=== PATIENT | male | born 1975 | race Caucasian/White ===

== ENCOUNTER 2017-06-21 19:45 | Inpatient (IN) ==
--- NOTE | 2017-06-21 20:16 | Emergency Department Note ---
Disposition Clinical Impression: Suicidal ideation, Depression Disposition: Admitted As Inpatient Condition: Good Psych HPI - General Chief Complaint: ED Psychiatric Symptoms Stated Complaint: SI Time Seen by Provider: 06/21/17 19:54 Source: patient, EMS Mode of arrival: EMS Limitations: no limitations Nursing Notes Reviewed: Yes Vital Signs Reviewed: Yes - History of Present Illness HPI Narrative: This is a 41 year-old male with history of depression and schizophrenia. He saw his psychiatrist Dr. Gonzales earlier today and was sent to the ED for increased depression and suicidal ideation. Patient says that he's hearing "fans," which he says is a flashback from his time in [facility]. He admits to SI. Denies any acute physical symptoms. Says he stopped taking his psychiatric medications months ago because he did not like the side effects. Pt complaint: suicidal ideation, feels depressed, anxiety, medical clearance request If medical clearance, reason: psychiatric condition Onset (ago): unknown (chronic, worse for weeks) Duration: getting worse Context: recent drug abuse, not taking psychiatric medications Associated Psychiatric Symptoms: depression, suicidal ideation, auditory hallucinations (?hearing fans) Associated symptoms: Reports: denies other symptoms Self harm or harm to others: admits thoughts of self harm - Related Data Home Medications Medication Instructions Recorded Confirmed No Known Home Drugs 06/22/17 06/22/17 Allergies Allergy/AdvReac Type Severity Reaction Status Date / Time haloperidol [From Haldol] Allergy See Verified 11/03/15 19:16 Comments All systems ED: reviewed and negative except as stated. Constitutional: Denies: fever Cardiovascular: Denies: chest pain Respiratory: Denies: dyspnea Gastrointestinal: Denies: abdominal pain Past Medical History - Past Medical History Medical history: Reports: no medical history, asthma, hepatitis Psychiatric history: Reports: depression, schizophrenia - Social History Smoking Status: Current every day smoker Smokeless Tobacco Status: Yes Alcohol use: Reports: none Drug use: Reports: marijuana, methamphetamine, other Physical Exam - General Limitations: no limitations General appearance: alert, in no apparent distress - Head Head exam: atraumatic, normocephalic - Eye Eye exam: Present: normal appearance - ENT ENT exam: normal exam - Neck Neck exam: Present: normal inspection - Respiratory Respiratory exam: Present: normal lung sounds bilaterally - Cardiovascular Cardiovascular exam: Present: regular rate, normal rhythm, normal heart sounds - Abdominal Exam Abdominal exam: Present: soft, Non-Tender. Absent: distention - Extremities Exam Extremities exam: Present: normal inspection - Neurological Exam Neurological exam: Present: alert, oriented X3. Absent: motor sensory deficit - Psychiatric Psychiatric exam: Present: anxious, suicidal ideation - Skin Skin exam: Present: warm, dry, intact Course Vital Signs Temperature 98.1 F 06/21/17 19:48 Pulse Rate 98 06/21/17 19:48 Respiratory Rate 18 06/21/17 19:48 Blood Pressure 122/47 06/21/17 19:48 O2 Sat by Pulse Oximetry 110 06/21/17 19:48 Temperature 98.5 F 06/22/17 21:00 Pulse Rate 51 06/22/17 21:00 Respiratory Rate 18 06/22/17 21:00 Blood Pressure 123/81 06/22/17 21:00 O2 Sat by Pulse Oximetry 98 06/22/17 11:25 Oxygen Delivery Oxygen Delivery Room Air Psych - Lab Data Result diagrams: 06/21/17 20:17 06/21/17 20:17 Lab Results 06/21/17 06/21/17 06/21/17 Range/Units 20:17 20:17 20:45 WBC 10.3 (4.3-11.1) K/mcL RBC 5.28 (4.19-5.50) M/mcL Hgb 15.6 (12.9-16.9) g/dL Hct 47.5 (37.5-50.1) % MCV 90.0 (83.0-100.0) fL MCH 29.5 (28.0-33.3) pg MCHC 32.8 (31.6-35.5) g/dL RDW 13.0 (11.5-14.5) % Plt Count 313 (140-400) K/mcL MPV 11.0 (9.4-12.4) fL Immature Gran % 0.3 (0-4) % Seg Neutrophils % 54.2 % Lymphocytes % 32.5 % Monocytes % 11.2 % Eosinophils % 1.2 % Basophils % 0.6 % Neutrophils # 5.6 (1.6-8.9) K/mcL Lymphocytes # 3.4 (0.6-4.6) K/mcL Monocytes # 1.2 (0.0-1.3) K/mcL Eosinophils # 0.1 (0.0-0.6) K/mcL Basophils # 0.1 (0.0-0.2) K/mcL Sodium 135 L (136-145) mEq/L Potassium 3.4 L (3.5-5.1) mEq/L Chloride 100 (98-107) mEq/L Carbon Dioxide 30 H (23-29) mEq/L BUN 7 (6-20) mg/dL Creatinine 0.82 (0.70-1.30) mg/dL Est GFR ( Amer) > 60 (> 60) Est GFR (Non-Af Amer) > 60 (> 60) BUN/Creatinine Ratio 9 (6-26) Glucose 94 (70-105) mg/dL Calculated Osmolality 278 L (280-300) Calcium 9.4 (8.6-10.3) mg/dL Urine Color Yellow (Yellow) Urine Clarity Clear (Clear) Urine pH 6.0 (5.0-8.0) pH Units Ur Specific [place] 1.017 (1.010-1.025) Urine Protein Negative (Neg-Trace) mg/dL Urine Glucose (UA) Normal (Normal) mg/dL Urine Ketones Negative (Negative) mg/dL Urine Blood Negative (Negative) Urine Nitrite Negative (Negative) Urine Bilirubin Negative (Negative) Urine Urobilinogen Normal (Normal) mg/dL Ur Leukocyte Esterase Negative (Negative) Salicylates < 5.0 L (15.0-30.0) mg/dL Urine Opiates Screen (Bjnatj=502) ng/mL Acetaminophen < 1.0 L (10-30) mcg/mL Ur Barbiturates Screen (Gdbbko=343) ng/mL Ur Phencyclidine Scrn (Cutoff=25) ng/mL Ur Amphetamines Screen (Lfiefm=0689) ng/mL U Benzodiazepines Scrn (Ozjlaa=126) ng/mL Urine Cocaine Screen (Cutoff= 300) ng/mL U Marijuana (THC) Screen (Cutoff = 50) ng/mL Ethyl Alcohol < 10 (0-10) mg/dL 06/21/17 Range/Units 20:45 WBC (4.3-11.1) K/mcL RBC (4.19-5.50) M/mcL Hgb (12.9-16.9) g/dL Hct (37.5-50.1) % MCV (83.0-100.0) fL MCH (28.0-33.3) pg MCHC (31.6-35.5) g/dL RDW (11.5-14.5) % Plt Count (140-400) K/mcL MPV (9.4-12.4) fL Immature Gran % (0-4) % Seg Neutrophils % % Lymphocytes % % Monocytes % % Eosinophils % % Basophils % % Neutrophils # (1.6-8.9) K/mcL Lymphocytes # (0.6-4.6) K/mcL Monocytes # (0.0-1.3) K/mcL Eosinophils # (0.0-0.6) K/mcL Basophils # (0.0-0.2) K/mcL Sodium (136-145) mEq/L Potassium (3.5-5.1) mEq/L Chloride (98-107) mEq/L Carbon Dioxide (23-29) mEq/L BUN (6-20) mg/dL Creatinine (0.70-1.30) mg/dL Est GFR ( Amer) (> 60) Est GFR (Non-Af Amer) (> 60) BUN/Creatinine Ratio (6-26) Glucose (70-105) mg/dL Calculated Osmolality (280-300) Calcium (8.6-10.3) mg/dL Urine Color (Yellow) Urine Clarity (Clear) Urine pH (5.0-8.0) pH Units Ur Specific [place] (1.010-1.025) Urine Protein (Neg-Trace) mg/dL Urine Glucose (UA) (Normal) mg/dL Urine Ketones (Negative) mg/dL Urine Blood (Negative) Urine Nitrite (Negative) Urine Bilirubin (Negative) Urine Urobilinogen (Normal) mg/dL Ur Leukocyte Esterase (Negative) Salicylates (15.0-30.0) mg/dL Urine Opiates Screen Negative (Fzusap=212) ng/mL Acetaminophen (10-30) mcg/mL Ur Barbiturates Screen Negative (Emtwrv=200) ng/mL Ur Phencyclidine Scrn Negative (Cutoff=25) ng/mL Ur Amphetamines Screen Positive H (Jryivq=6936) ng/mL U Benzodiazepines Scrn Positive H (Eoqtsb=728) ng/mL Urine Cocaine Screen Negative (Cutoff= 300) ng/mL U Marijuana (THC) Screen Positive H (Cutoff = 50) ng/mL Ethyl Alcohol (0-10) mg/dL Psychiatric Medical Clearance - Medical Clearance Checklist Medical History: Suicidal ideation (Acute) Depression (Acute) Acute exacerbation of chronic paranoid schizophrenia (Acute) Patient's noncompliance with other medical treatment and regimen (Acute) Other stimulant dependence with stimulant-induced anxiety disorder (Acute) Sedative, hypnotic or anxiolytic abuse, uncomplicated (Acute) Cannabis abuse, continuous (Acute) Acute bronchitis (Inactive) Altered awareness, transient (Inactive) Bronchitis (Inactive) Medical clearance for psychiatric admission (Inactive) No Social History Section defined Current Vitals: Last Vital Signs Temp 98.5 F 06/22/17 21:00 Pulse 51 06/22/17 21:00 Resp 18 06/22/17 21:00 BP 123/81 06/22/17 21:00 Pulse Ox 98 06/22/17 11:25 Abnormal Labs: Abnormal lab results Sodium 135 mEq/L (136-145) L 06/21/17 20:17 Potassium 3.4 mEq/L (3.5-5.1) L 06/21/17 20:17 Carbon Dioxide 30 mEq/L (23-29) H 06/21/17 20:17 Calculated Osmolality 278 (280-300) L 06/21/17 20:17 Salicylates < 5.0 mg/dL (15.0-30.0) L 06/21/17 20:17 Acetaminophen < 1.0 mcg/mL (10-30) L 06/21/17 20:17 Ur Amphetamines Screen Positive ng/mL (Tzqqtd=4748) H 06/21/17 20:45 U Benzodiazepines Scrn Positive ng/mL (Qifkym=744) H 06/21/17 20:45 U Marijuana (THC) Screen Positive ng/mL (Cutoff = 50) H 06/21/17 20:45 Statement of Medical Clearance: I have evaluated the patient, reviewed diagnostic information, and certify that the patient's medical condition is sufficiently stable that transfer to the psychiatric unit does not pose a significant risk of deterioration.
[2017-06-21 20:29] LABS: Basophils # 0.1 K/mcL (0.0-0.2); Basophils % 0.6 %; Eosinophils # 0.1 K/mcL (0.0-0.6); Eosinophils % 1.2 %; Hematocrit 47.5 % (37.5-50.1); Hemoglobin 15.6 g/dL (12.9-16.9); Immature Granulocytes % 0.3 % (0-4); Lymphocytes # 3.4 K/mcL (0.6-4.6); Lymphocytes % 32.5 %; Mean Corpuscular HGB Conc 32.8 g/dL (31.6-35.5); Mean Corpuscular Hemoglobin 29.5 pg (28.0-33.3); Monocytes # 1.2 K/mcL (0.0-1.3); Monocytes % 11.2 %; Neutrophils # 5.6 K/mcL (1.6-8.9); Platelet Count 313 K/mcL (140-400); Red Blood Count 5.28 M/mcL (4.19-5.50); Segmented Neutrophils % 54.2 %
[2017-06-21 20:45] LABS: Acetaminophen < 1.0 mcg/mL (10-30); Ethanol < 10 mg/dL (0-10); Salicylate < 5.0 mg/dL (15.0-30.0)
[2017-06-21 20:46] LABS: BUN/Creatinine Ratio 9 (6-26); Blood Urea Nitrogen 7 mg/dL (6-20); Calcium 9.4 mg/dL (8.6-10.3); Carbon Dioxide 30 mEq/L (23-29); Chloride 100 mEq/L (98-107); Glucose 94 mg/dL (70-105); Osmolality,Calculated 278 (280-300); Potassium 3.4 mEq/L (3.5-5.1); Sodium 135 mEq/L (136-145); eGFR For African Americans > 60 (> 60); eGFR For Non-African Americans > 60 (> 60)
[2017-06-21 20:57] LABS: Bilirubin,Urine Negative (Negative); Blood,Urine Negative (Negative); Clarity,Urine Clear (Clear); Color,Urine Yellow (Yellow); Glucose,Urine (UA) Normal (Normal); Ketones,Urine Negative (Negative); Leukocyte Esterase,Urine Negative (Negative); Nitrite,Urine Negative (Negative); Protein,Urine Negative (Neg-Trace); Specific Gravity,Urine 1.017 (1.010-1.025); Urobilinogen,Urine Normal (Normal)
[2017-06-21 21:04] LABS: Amphetamine Screen,Urine Positive ng/mL (Cutoff=1000); Barbiturate Screen,Urine Negative ng/mL (Cutoff=200); Benzodiazepines Screen,Urine Positive ng/mL (Cutoff=200); Cannabinoid Screen,Urine Positive ng/mL (Cutoff = 50); Cocaine Screen,Urine Negative ng/mL (Cutoff= 300); Opiate Screen,Urine Negative ng/mL (Cutoff=300); Phencyclidine Screen,Urine Negative ng/mL (Cutoff=25)
[2017-06-21] MEDS ORDERED: Ibuprofen 800 MG TABLET PO ONE (23:10)
[2017-06-22] MEDS ORDERED: clonazePAM 0.5 MG TABLET PO ONE (05:06)
[2017-06-22] MEDS ORDERED: Nicotine 21 MG PATCH.TD24 TD SCH (05:15)
--- NOTE | 2017-06-22 05:46 | Emergency Department Note ---
START Narrative - START START: I examined this patient and my medical decision-making was reviewed with the Resident Physician. I agree with the documented findings, disposition and treatment plan as described except to the extent set forth below. Findings consistent with suicidal ideations. Plan for placement. No events overnight.
--- NOTE | 2017-06-22 07:22 | Emergency Department Note ---
Disposition Clinical Impression: Suicidal ideation Depression Qualifiers: Depression Type: unspecified Qualified Code(s): F32.9 - Major depressive disorder, single episode, unspecified Disposition: Admitted As Inpatient Condition: Good Referrals: NONE,PCP [Primary Care Provider] - Forms: ED Satisfaction Letter Time of Disposition: 11:10 General Adult HPI - General Chief complaint: ED Psychiatric Symptoms Stated complaint: SI Time Seen by Provider: 06/21/17 19:54 Source: patient, EMS Mode of arrival: EMS Limitations: no limitations - History of Present Illness Pain Scale: 7 - Related Data Allergies Allergy/AdvReac Type Severity Reaction Status Date / Time haloperidol [From Haldol] Allergy See Verified 11/03/15 19:16 Comments Constitutional: Denies: fever Cardiovascular: Denies: chest pain Respiratory: Denies: dyspnea Gastrointestinal: Denies: abdominal pain Past Medical History - Past Medical History Medical history: Reports: no medical history, asthma, hepatitis Psychiatric history: Reports: depression, schizophrenia - Social History Smoking Status: Current every day smoker Smokeless Tobacco Status: Yes Alcohol use: Reports: none Drug use: Reports: marijuana, methamphetamine, other Physical Exam - General Limitations: no limitations General appearance: alert, in no apparent distress Course Course Narrative: Patient signed out of the nighttime physician Dr. Yony Jiang. Patient was seen initially by the daytime physicians determined that he was depressed with a history of schizophrenia. He was evaluated by the psychiatric team and they are attempting to place him at this time. Patient has been no specific distress in the emergency room at this point. We will continue to monitor until the treatment course is completed. Patient will be provided with any medical intervention as needed. Patient is otherwise resting comfortably. See detailed documentation of previous physical exam. If need be further treatment and evaluation will be established and completed by myself. Vital signs and labs reviewed - Reevaluation(s) Reevaluation #1: Patient will be accepted our psychiatric facility for evaluation. No other recommendations or concerns. Patient is otherwise stable. Time: 11:10 Vital Signs Temperature 98.1 F 06/21/17 19:48 Pulse Rate 98 06/21/17 19:48 Respiratory Rate 18 06/21/17 19:48 Blood Pressure 122/47 06/21/17 19:48 O2 Sat by Pulse Oximetry 110 06/21/17 19:48 Temperature 97.6 F 06/22/17 07:38 Pulse Rate 111 06/22/17 07:38 Respiratory Rate 18 06/22/17 07:38 Blood Pressure 137/72 06/22/17 07:38 O2 Sat by Pulse Oximetry 98 06/22/17 07:38 Oxygen Delivery Oxygen Delivery Room Air Medical Decision Making - MDM Narrative Medical decision making narrative: Suicidal ideation, schizophrenia, depression - Medical Records Medical records reviewed: Yes I reviewed the patient's medical records. - Lab Data Lab results reviewed: Yes I reviewed the patient's lab results. Result diagrams: 06/21/17 20:17 06/21/17 20:17 Lab Results 06/21/17 06/21/17 06/21/17 Range/Units 20:17 20:17 20:45 WBC 10.3 (4.3-11.1) K/mcL RBC 5.28 (4.19-5.50) M/mcL Hgb 15.6 (12.9-16.9) g/dL Hct 47.5 (37.5-50.1) % MCV 90.0 (83.0-100.0) fL MCH 29.5 (28.0-33.3) pg MCHC 32.8 (31.6-35.5) g/dL RDW 13.0 (11.5-14.5) % Plt Count 313 (140-400) K/mcL MPV 11.0 (9.4-12.4) fL Immature Gran % 0.3 (0-4) % Seg Neutrophils % 54.2 % Lymphocytes % 32.5 % Monocytes % 11.2 % Eosinophils % 1.2 % Basophils % 0.6 % Neutrophils # 5.6 (1.6-8.9) K/mcL Lymphocytes # 3.4 (0.6-4.6) K/mcL Monocytes # 1.2 (0.0-1.3) K/mcL Eosinophils # 0.1 (0.0-0.6) K/mcL Basophils # 0.1 (0.0-0.2) K/mcL Sodium 135 L (136-145) mEq/L Potassium 3.4 L (3.5-5.1) mEq/L Chloride 100 (98-107) mEq/L Carbon Dioxide 30 H (23-29) mEq/L BUN 7 (6-20) mg/dL Creatinine 0.82 (0.70-1.30) mg/dL Est GFR ( Amer) > 60 (> 60) Est GFR (Non-Af Amer) > 60 (> 60) BUN/Creatinine Ratio 9 (6-26) Glucose 94 (70-105) mg/dL Calculated Osmolality 278 L (280-300) Calcium 9.4 (8.6-10.3) mg/dL Urine Color Yellow (Yellow) Urine Clarity Clear (Clear) Urine pH 6.0 (5.0-8.0) pH Units Ur Specific [place] 1.017 (1.010-1.025) Urine Protein Negative (Neg-Trace) mg/dL Urine Glucose (UA) Normal (Normal) mg/dL Urine Ketones Negative (Negative) mg/dL Urine Blood Negative (Negative) Urine Nitrite Negative (Negative) Urine Bilirubin Negative (Negative) Urine Urobilinogen Normal (Normal) mg/dL Ur Leukocyte Esterase Negative (Negative) Salicylates < 5.0 L (15.0-30.0) mg/dL Urine Opiates Screen (Qgnfyg=556) ng/mL Acetaminophen < 1.0 L (10-30) mcg/mL Ur Barbiturates Screen (Pqscei=763) ng/mL Ur Phencyclidine Scrn (Cutoff=25) ng/mL Ur Amphetamines Screen (Sqxibu=8881) ng/mL U Benzodiazepines Scrn (Pmsmdf=628) ng/mL Urine Cocaine Screen (Cutoff= 300) ng/mL U Marijuana (THC) Screen (Cutoff = 50) ng/mL Ethyl Alcohol < 10 (0-10) mg/dL 06/21/17 Range/Units 20:45 WBC (4.3-11.1) K/mcL RBC (4.19-5.50) M/mcL Hgb (12.9-16.9) g/dL Hct (37.5-50.1) % MCV (83.0-100.0) fL MCH (28.0-33.3) pg MCHC (31.6-35.5) g/dL RDW (11.5-14.5) % Plt Count (140-400) K/mcL MPV (9.4-12.4) fL Immature Gran % (0-4) % Seg Neutrophils % % Lymphocytes % % Monocytes % % Eosinophils % % Basophils % % Neutrophils # (1.6-8.9) K/mcL Lymphocytes # (0.6-4.6) K/mcL Monocytes # (0.0-1.3) K/mcL Eosinophils # (0.0-0.6) K/mcL Basophils # (0.0-0.2) K/mcL Sodium (136-145) mEq/L Potassium (3.5-5.1) mEq/L Chloride (98-107) mEq/L Carbon Dioxide (23-29) mEq/L BUN (6-20) mg/dL Creatinine (0.70-1.30) mg/dL Est GFR ( Amer) (> 60) Est GFR (Non-Af Amer) (> 60) BUN/Creatinine Ratio (6-26) Glucose (70-105) mg/dL Calculated Osmolality (280-300) Calcium (8.6-10.3) mg/dL Urine Color (Yellow) Urine Clarity (Clear) Urine pH (5.0-8.0) pH Units Ur Specific [place] (1.010-1.025) Urine Protein (Neg-Trace) mg/dL Urine Glucose (UA) (Normal) mg/dL Urine Ketones (Negative) mg/dL Urine Blood (Negative) Urine Nitrite (Negative) Urine Bilirubin (Negative) Urine Urobilinogen (Normal) mg/dL Ur Leukocyte Esterase (Negative) Salicylates (15.0-30.0) mg/dL Urine Opiates Screen Negative (Jilfve=651) ng/mL Acetaminophen (10-30) mcg/mL Ur Barbiturates Screen Negative (Atjmkt=181) ng/mL Ur Phencyclidine Scrn Negative (Cutoff=25) ng/mL Ur Amphetamines Screen Positive H (Gjhnrn=2464) ng/mL U Benzodiazepines Scrn Positive H (Xtenig=618) ng/mL Urine Cocaine Screen Negative (Cutoff= 300) ng/mL U Marijuana (THC) Screen Positive H (Cutoff = 50) ng/mL Ethyl Alcohol (0-10) mg/dL
[2017-06-22] MEDS ORDERED: Ibuprofen 800 MG TABLET PO ONE (08:54)
[2017-06-22] MEDS ORDERED: MOM Conc 10 ML UD.LIQ PO PRN (11:32)
[2017-06-22] MEDS ORDERED: Mag Hydrox/Al Hydrox/Simeth 30 ML UDC PO PRN (11:32)
[2017-06-22] MEDS ORDERED: Ziprasidone injection 20 MG/ML VIAL IM ONE (11:39)
[2017-06-22] MEDS ORDERED: ARIPiprazole 5 MG TABLET PO STA (12:30)
--- NOTE | 2017-06-22 14:05 | Psychiatry History & Physical ---
Date of Encounter: 06/22/17 Time of Encounter: 14:00 History of Present Illness Patient Stated Chief Complaint: I came in, but I don't want to be on meds Medicare Admission Attestation: For traditional Medicare patients the provided hospital inpatient services are reasonable and necessary and in the case of services not specified as inpatient -only under 42 CFR 419.22 (n), that they are appropriately provided as inpatient services in accordance 42 CFR 412.3. For Critical Access Hospital the patient may reasonably be expected to be discharged or transferred to a hospital within 96 hours after admission to the Critical Access Hospital. . The patient is a 41-year-old almost 42-year-old white male. He has never been . The patient is admitted under involuntary hospitalization he was sent in on a pink slip by Dr. Bergman. His next of kin is Rosemary Song, his mother. His legal guardian is Juan F Nieto [phone] Chief complaint I do not really want to take medicines. I cannot take Ativan and clozapine had me so confused I could not pull my pants. History of present illness. The patient is a poor historian so his history was collected from Dr. Bergman and Rosemary Song. The patient has schizophrenia. The onset of this illness was in young adulthood. The patient also had used marijuana and perhaps other drugs, and currently. He developed delusions and hallucinations. The patient presented to the ER with a statement that he wanted to get clean in drug rehabilitation. He indicated that he was hearing FAM's reminding him of present. However his mother reports that the patient has stopped taking his psychiatric medicines since December 2016. He lost weight from 230 pounds to 170 pounds. He started using meth. The patient began to believe that the FBI was tracking him and had kept his follow in an effort to avoid their surveillance he talked his biological father into driving him to [facility]. He was to meet up with a man but did not. The patient has lived by himself independently however he has a roommate and the roommate says do not ever take Ativan I am all crippled up from. Patient admits that he may need medicines and asked for Valium or something other than Ativan. He was offered Abilify and in [place] but said that he refuses to take injections and refuses to take clozapine. In the past the patient was treated by Dr. abida Ayers a psychiatrist who is now in [facility]. This patient had treatment refractory schizophrenia and was placed on clozapine he did gain a lot of weight from the. Later he was switched to other antipsychotics but the patient continues to abuse benzodiazepines and continues to smoke marijuana almost daily. He is noncompliant with his treatment he states that he might have schizophrenia but does not need medicines. He recognizes he needs help for substance abuse. His mother has told me that he plans to leave July 11 to go to [facility] for somewhere out of state a female friend Today the patient was brought to the inpatient unit and was offered both Abilify and in [place]. He initially refusing in [place] and look through the medication list and said that there are too many side effects but agreed to take had he not taken it then Geodon 20 mg IM may have been given as he has been an unmedicated state he believes his phone is tapped he believes he is being persecuted by the FBI he is taking drastic steps to be avoid being detected he is avoided certain places such as [facility] where his mother was going to take him. He believed that the FBI had infiltrated the [facility] was monitoring. He asked his mother to come to the emergency room so that she could with he could whisper something into her ear that he was afraid to say on the phone for fear that was by. I called the guardians phone number and left hippa compliant message. To briefly summarize him familiar with this patient's presentation by talking to previous clinicians who have treated him and his next of kin. That being said this patient is not a candidate for oral medicines. This patient has polysubstance abuse. This patient has little insight into his illness. This patient is treatment refractory either due to noncompliance are only partial response to medications or discontinuing them intermittently. Consequently this patient should be considered for a long-acting injectable antipsychotic. This patient should not be allowed to sign voluntary this patient should have involuntary hospitalization. This patient should have an order for forced medication. My estimated length of stay for this patient is a 45 days. Nonetheless reasonable clinician may differ in the legal system may decide otherwise and his length of stay might be shorter. It is my recommendation that he go to a facility that will provide outpatient commitment for forced medication of his long-acting injectable medicines for oral medication on an outpatient basis this patient cannot be managed without the use of antipsychotics at this time. I told him this and that antipsychotics would be necessary in the treatment of his primary psychiatric condition. It would also be necessary for any rehabilitation from substance abuse Admitted From: Emergency Dept Plans for Post Hospital Care: Transfer Psych Facility History of Present Illness: Mr. Oates is a 41 year old male Past Med Surg Social Fam HX - Past Medical History Source: patient, obtained from family Medical history: no medical history, asthma, hepatitis - Past Psychiatric History Psychiatric history: Reports: schizophrenia Family psychiatric history: Unknown Family History of Suicide: Unknown - Social History Smoking Status: Current every day smoker Smokeless Tobacco Status: Yes Alcohol use: none Drug use: marijuana, methamphetamine, other Occupational status: disabled Current living situation: Home - Independent Activity Level: Independent ambulation Recent Out of Country Travel Within the Last 8 Weeks: Yes Exposure or Possible Exposure to Illness During Travel: Yes Medications & Allergies No Known Home Drugs 06/22/17 [History] 3 Allergy/AdvReac Type Severity Reaction Status Date / Time haloperidol [From Haldol] Allergy See Verified 11/03/15 19:16 Comments Review of Systems Constitutional: Reports: weight change Eyes: Reports: vision change Cardiovascular: Denies: chest pain, palpitations, dyspnea on exertion Respiratory: Denies: cough, dyspnea, wheezes Gastrointestinal: Denies: abdominal pain, nausea, vomiting, diarrhea, constipation Genitourinary male: Reports: urgency Musculoskeletal: Reports: joint pain Integumentary: Denies: rash, lesions, pruritus Neurological: Reports: abnormal gait. Denies: headache, weakness, numbness, memory loss Psychiatric: Reports: depression, abnormal sleep pattern, auditory hallucinations, visual hallucinations, irritability Endocrine: Denies: heat or cold intolerance Hematologic/Lymphatic: Denies: easy bruising, lymphadenopathy Allergic/Immunologic: Reports: facial swelling Exam - HEENT Head exam IM: Present: atraumatic Eye exam IM: Present: EOMI, normal appearance, PERRL ENT exam IM: Present: normal exam - Neurological Neurological exam: Present: CN II-XII intact - Respiratory Respiratory exam IM: Present: CTAB - GI/Abdominal GI/Abdominal exam IM: Present: normal bowel sounds, soft. Absent: tenderness - Extremities Extremities exam IM: Present: full ROM - Skin Skin exam IM: Present: dry, warm - Constitutional Vitals: Temp Pulse Resp BP Pulse Ox 97.9 F 94 16 124/87 98 06/22/17 11:25 06/22/17 11:25 06/22/17 11:25 06/22/17 11:25 06/22/17 11:25 General appearance: age & developmentally appropriate, well-groomed, well- nourished - Musculoskeletal Gait: normal Station: relaxed Strength & Tone: normal for patient - Psychiatric Patient Orientation: Yes Person, Yes Time, Yes Place Level of alertness: Alert, Sedated Behavior: calm, cooperative Psychomotor activity: Normal Eye Contact: Minimal Contact Mood Description: Depressed Affect description: congruent with mood, blunted, anxious Speech Volume: Normal Speech pattern: normal rate, normal rhythm, normal tone, fluent, spontaneous Language & Vocabulary: consistent with education Thought Process: Linear, Goal Oriented Thought Content: No Suicidal ideation, No Homicidal ideation, No Overt delusions , Yes Ideas of reference, Yes Paranoid delusion, Yes Thought broadcasting, Yes Thought insertion Perceptual Disturbances: No Auditory hallucinations, No Visual hallucinations Attention Span Ability: Capable of Focused Attention Memory Description: Grossly Intact Fund of knowledge: Yes below average Intelligence Estimate: Average Judgment: Poor Insight: None Results - Labs Labs: Laboratory Last Values WBC 10.3 K/mcL (4.3-11.1) 06/21/17 20:17 RBC 5.28 M/mcL (4.19-5.50) 06/21/17 20:17 Hgb 15.6 g/dL (12.9-16.9) 06/21/17 20:17 Hct 47.5 % (37.5-50.1) 06/21/17 20:17 MCV 90.0 fL (83.0-100.0) 06/21/17 20:17 MCH 29.5 pg (28.0-33.3) 06/21/17 20:17 MCHC 32.8 g/dL (31.6-35.5) 06/21/17 20:17 RDW 13.0 % (11.5-14.5) 06/21/17 20:17 Plt Count 313 K/mcL (140-400) 06/21/17 20:17 MPV 11.0 fL (9.4-12.4) 06/21/17 20:17 Immature Gran % 0.3 % (0-4) 06/21/17 20:17 Seg Neutrophils % 54.2 % 06/21/17 20:17 Lymphocytes % 32.5 % 06/21/17 20:17 Monocytes % 11.2 % 06/21/17 20:17 Eosinophils % 1.2 % 06/21/17 20:17 Basophils % 0.6 % 06/21/17 20:17 Neutrophils # 5.6 K/mcL (1.6-8.9) 06/21/17 20:17 Lymphocytes # 3.4 K/mcL (0.6-4.6) 06/21/17 20:17 Monocytes # 1.2 K/mcL (0.0-1.3) 06/21/17 20:17 Eosinophils # 0.1 K/mcL (0.0-0.6) 06/21/17 20: Basophils # 0.1 K/mcL (0.0-0.2) 06/21/17 20:17 Sodium 135 mEq/L (136-145) L 06/21/17 20:17 Potassium 3.4 mEq/L (3.5-5.1) L 06/21/17 20:17 Chloride 100 mEq/L (98-107) 06/21/17 20:17 Carbon Dioxide 30 mEq/L (23-29) H 06/21/17 20:17 BUN 7 mg/dL (6-20) 06/21/17 20:17 Creatinine 0.82 mg/dL (0.70-1.30) 06/21/17 20:17 Est GFR ( Amer) > 60 (> 60) 06/21/17 20:17 Est GFR (Non-Af Amer) > 60 (> 60) 06/21/17 20:17 BUN/Creatinine Ratio 9 (6-26) 06/21/17 20:17 Glucose 94 mg/dL (70-105) 06/21/17 20:17 Calculated Osmolality 278 (280-300) L 06/21/17 20:17 Calcium 9.4 mg/dL (8.6-10.3) 06/21/17 20:17 Urine Color Yellow (Yellow) 06/21/17 20:45 Urine Clarity Clear (Clear) 06/21/17 20:45 Urine pH 6.0 pH Units (5.0-8.0) 06/21/17 20:45 Ur Specific [place] 1.017 (1.010-1.025) 06/21/17 20:45 Urine Protein Negative mg/dL (Neg-Trace) 06/21/17 20:45 Urine Glucose (UA) Normal mg/dL (Normal) 06/21/17 20:45 Urine Ketones Negative mg/dL (Negative) 06/21/17 20:45 Urine Blood Negative (Negative) 06/21/17 20:45 Urine Nitrite Negative (Negative) 06/21/17 20:45 Urine Bilirubin Negative (Negative) 06/21/17 20:45 Urine Urobilinogen Normal mg/dL (Normal) 06/21/17 20:45 Ur Leukocyte Esterase Negative (Negative) 06/21/17 20:45 Salicylates < 5.0 mg/dL (15.0-30.0) L 06/21/17 20:17 Urine Opiates Screen Negative ng/mL (Qptbmc=983) 06/21/17 20:45 Acetaminophen < 1.0 mcg/mL (10-30) L 06/21/17 20:17 Ur Barbiturates Screen Negative ng/mL (Pvvvhz=691) 06/21/17 20:45 Ur Phencyclidine Scrn Negative ng/mL (Cutoff=25) 06/21/17 20:45 Ur Amphetamines Screen Positive ng/mL (Vrhhib=3387) H 06/21/17 20:45 U Benzodiazepines Scrn Positive ng/mL (Butqml=700) H 06/21/17 20:45 Urine Cocaine Screen Negative ng/mL (Cutoff= 300) 06/21/17 20:45 U Marijuana (THC) Screen Positive ng/mL (Cutoff = 50) H 06/21/17 20:45 Ethyl Alcohol < 10 mg/dL (0-10) 06/21/17 20:17 Assessment and Plan (1) Acute exacerbation of chronic paranoid schizophrenia Current visit: Yes Status: Acute Plan: Admit inpatient for safety and stabilization, Close observation, Encourage participation in unit milieu Risks, benefits, side effects, alternatives discussed w/pt: Yes Patient agreeable to treatment: Yes Plans for Post Hospital Care: Transfer Psych Facility Estimated Length of Stay (Days ): 45 (2) Patient's noncompliance with other medical treatment and regimen Current visit: Yes Status: Acute Plan: Admit inpatient for safety and stabilization, Other Risks, benefits, side effects, alternatives discussed w/pt: Yes Patient agreeable to treatment : Yes Plans for Post Hospital Care: Transfer Psych Facility Estimated Length of Stay (Days): 45 (3) Other stimulant dependence with stimulant-induced anxiety disorder Current visit: Yes Status: Acute Plan: Admit inpatient for safety and stabilization, Monitor sleep, Monitor appetite Risks, benefits, side effects, alternatives discussed w/pt: Yes Patient agreeable to treatment: Yes Plans for Post Hospital Care: Transfer Psych Facility (4) Sedative, hypnotic or anxiolytic abuse, uncomplicated Current visit: Yes Status: Acute Plan: Admit inpatient for safety and stabilization, Group Therapy, Monitor sleep Risks, benefits, side effects, alternatives discussed w/pt: Yes Patient agreeable to treatment: Yes Plans for Post Hospital Care: Transfer Psych Facility (5) Cannabis abuse, continuous Current visit: Yes Status: Acute Plan: Admit inpatient for safety and stabilization, Close observation, Family/ Supportive other meeting Risks, benefits, side effects, alternatives discussed w/pt: Yes Patient agreeable to treatment: Yes
[2017-06-22] MEDS ORDERED: ARIPiprazole 5 MG TABLET PO SCH (21:00)
[2017-06-22] MEDS: traZODone 50 MG TABLET PO PRN (21:48)
[2017-06-22] MEDS: ARIPiprazole 5 MG TABLET PO SCH (21:48)
[2017-06-22] MEDS: clonazePAM 0.5 MG TABLET PO SCH (21:49)
[2017-06-23] MEDS: clonazePAM 0.5 MG TABLET PO SCH (08:37)
[2017-06-23] MEDS: ARIPiprazole 5 MG TABLET PO SCH (08:37)
[2017-06-23] MEDS: Nicotine 21 MG PATCH.TD24 TD SCH (08:37)
[2017-06-23] MEDS: hydrOXYzine pamoate 25 MG CAPSULE PO PRN (08:37)
[2017-06-23] MEDS: Ibuprofen 400 MG TABLET PO PRN (08:49)
--- NOTE | 2017-06-23 13:36 | Psychiatry Progress Note ---
Date of Encounter: 06/23/17 Time of Encounter: 11:30 Subjective Interval history: Patient seen and evaluated by a multidisciplinary treatment team. There were no reported behavioral issues or incident overnight. Patient presented in the office tearful and shaking. He reported withdrawal from Xanax and Klonopin. Patient admitted to taking upto 6mgs of Xanas and 4mgs of Klonopin prior to his admission. He has been off his psych medications since mar. Patient was unable to sit through his evaluation and was pacing up and down. He also requested for medications to help stop the "voices" which he was unable to give details. He admitted to not sleeping last night due to withdrawals from the BEnzoes. Patient will beb placed of Benzo tapering with Klonopin and Invega increased to 6mg at bedtime. He denied side effects from his medications. Review of Systems Constitutional: Denies: fever, chills, weakness, weight change Eyes: Denies: eye pain, vision change Ears, Nose, Throat: Denies: ear pain, throat pain, dental pain, hearing loss, congestion Cardiovascular: Denies: chest pain, palpitations, dyspnea on exertion Respiratory: Denies: cough, dyspnea, wheezes Gastrointestinal: Denies: abdominal pain, nausea, vomiting, diarrhea, constipation Musculoskeletal: Denies: joint swelling, joint pain Neurological: Denies: headache, weakness, numbness, memory loss Psychiatric: Reports: depression, abnormal sleep pattern, auditory hallucinations, visual hallucinations, irritability Results - Vital Signs Vital Signs: Temp Pulse Resp BP Pulse Ox 97.4 F L 83 20 140/110 98 06/23/17 09:00 06/23/17 09:00 06/23/17 09:00 06/23/17 09:00 06/22/17 11:25 Assessment and Plan (1) Acute exacerbation of chronic paranoid schizophrenia Current visit: Yes Status: Acute Risks, benefits, side effects, alternatives discussed w/pt: Yes Patient agreeable to treatment: Yes (2) Other stimulant dependence with stimulant-induced anxiety disorder Current visit: Yes Status: Acute Risks, benefits, side effects, alternatives discussed w/pt: Yes Patient agreeable to treatment: Yes (3) Sedative, hypnotic or anxiolytic abuse, uncomplicated Current visit: Yes Status: Acute Plan: Continue hospitalization, Close observation Risks, benefits, side effects, alternatives discussed w/pt: Yes Patient agreeable to treatment: Yes Consult Discharge Plan - Plan Referrals: NONE,PCP [Primary Care Provider] - Psychiatry Exam - Constitutional Vitals: Temp Pulse Resp BP Pulse Ox 97.4 F L 83 20 140/110 98 06/23/17 09:00 06/23/17 09:00 06/23/17 09:00 06/23/17 09:00 06/22/17 11:25 General appearance: age & developmentally appropriate - Musculoskeletal Gait: normal Strength & Tone: normal for patient - Psychiatric Patient Orientation: Yes Person, Yes Place Level of alertness: Alert Behavior: tearful, restless Psychomotor activity: Increased Eye Contact: Maintains Eye Contact Mood Description: Anxious, Labile Affect description: tearful Speech Volume: Normal Speech pattern: normal rate, normal rhythm, normal tone Language & Vocabulary: consistent with education Thought Process: Logical, Goal Oriented Thought Content: Yes Intact Perceptual Disturbances: Yes Auditory hallucinations, Yes Visual hallucinations Attention Span Ability: Unable to Focus Memory Description: Grossly Intact Patient Reliability: Reliable Historian Fund of knowledge: Yes abstraction ability, Yes aware of current events Intelligence Estimate: Average Judgment: Limited Insight: Minimal
[2017-06-23] MEDS: clonazePAM 1 MG TABLET PO PRN ×2 (14:23→20:54)
[2017-06-23] MEDS: traZODone 50 MG TABLET PO PRN (20:48)
[2017-06-24] MEDS: hydrOXYzine pamoate 25 MG CAPSULE PO PRN ×3 (00:34→21:58)
[2017-06-24] MEDS: Ibuprofen 400 MG TABLET PO PRN (02:32)
[2017-06-24] MEDS: Nicotine 21 MG PATCH.TD24 TD SCH (09:02)
[2017-06-24] MEDS: clonazePAM 1 MG TABLET PO PRN ×2 (09:05→18:19)
--- NOTE | 2017-06-24 11:29 | Psychiatry Progress Note ---
Date of Encounter: 06/24/17 Time of Encounter: 11:20 Subjective Interval history: Patient seem and discussed on rounds by a multidisciplinary treatment team. There were no reported behavioral issues or incident overnight. He was calm and cooperative with his evaluation. He reported minimal improvement in symptoms and continue to endorsed depressed mood with anxiety and wish to be put on Sertraline due to prior good effect. Patient remiands delusional and paranoid stating some of the staff on the unit are with the FBI and here to get his personal information. Patient is compliant with hsi medications and denied any note side effects. Patient is sleeping and eating well. He continues to endorse intermittent non command AH. On review of symptoms, he denied other mood and psychotic symptoms including SI/HI. Review of Systems Constitutional: Denies: fever, chills, weakness, weight change Eyes: Denies: eye pain, vision change Ears, Nose, Throat: Denies: ear pain, throat pain, dental pain, hearing loss, congestion Cardiovascular: Denies: chest pain, palpitations, dyspnea on exertion Respiratory: Denies: cough, dyspnea, wheezes Gastrointestinal: Denies: abdominal pain, nausea, vomiting, diarrhea, constipation Musculoskeletal: Denies: joint swelling, joint pain Neurological: Denies: headache, weakness, numbness, memory loss Psychiatric: Reports: depression, auditory hallucinations, visual hallucinations , irritability, other Results - Vital Signs Vital Signs: Temp Pulse Resp BP Pulse Ox 98 F 94 18 112/73 98 06/24/17 09:00 06/24/17 09:00 06/24/17 09:00 06/24/17 09:00 06/22/17 11:25 Assessment and Plan (1) Acute exacerbation of chronic paranoid schizophrenia Current visit: Yes Status: Acute Plan: Continue hospitalization, Close observation, Suicide Precautions per unit protocol, Encourage participation in unit milieu, Group Therapy, Monitor sleep, Monitor appetite Risks, benefits, side effects, alternatives discussed w/pt: Yes Patient agreeable to treatment: Yes (2) Other stimulant dependence with stimulant-induced anxiety disorder Current visit: Yes Status: Acute Plan: Continue hospitalization, Close observation, Suicide Precautions per unit protocol, Encourage participation in unit milieu, Group Therapy, Monitor sleep, Monitor appetite Risks, benefits, side effects, alternatives discussed w/pt: Yes Patient agreeable to treatment: Yes (3) Sedative, hypnotic or anxiolytic abuse, uncomplicated Current visit: Yes Status: Acute Plan: Continue hospitalization, Close observation, Suicide Precautions per unit protocol, Encourage participation in unit milieu, Group Therapy, Monitor sleep, Monitor appetite Risks, benefits, side effects, alternatives discussed w/pt: Yes Patient agreeable to treatment: Yes Consult Discharge Plan - Plan Referrals: NONE,PCP [Primary Care Provider] - Psychiatry Exam - Constitutional Vitals: Temp Pulse Resp BP Pulse Ox 98 F 94 18 112/73 98 06/24/17 09:00 06/24/17 09:00 06/24/17 09:00 06/24/17 09:00 06/22/17 11:25 General appearance: age & developmentally appropriate, well-groomed, well- nourished - Musculoskeletal Gait: normal - Psychiatric Patient Orientation: Yes Person, Yes Place Level of alertness: Alert Behavior: anxious Psychomotor activity: Slowed Eye Contact: Diverts Contact Mood Description: Euthymic/stable Affect description: congruent with mood Speech Volume: Normal Speech pattern: normal rate, normal rhythm, normal tone Language & Vocabulary: consistent with education Thought Process: Intact Thought Content: Yes Paranoid delusion Perceptual Disturbances: Yes Auditory hallucinations Attention Span Ability: Unable to Sustain Attention Memory Description: Grossly Intact Patient Reliability: Not Reliable Historian Intelligence Estimate: Average Judgment: Poor Insight: Minimal
[2017-06-24] MEDS: traZODone 50 MG TABLET PO PRN (21:57)
[2017-06-25] MEDS: Nicotine 21 MG PATCH.TD24 TD SCH (08:12)
--- NOTE | 2017-06-25 11:57 | Psychiatry Progress Note ---
Date of Encounter: 06/25/17 Time of Encounter: 11:30 Subjective Interval history: Patient seen today , case d/w treatment team , chart reviewed . He has h/o Schizophrenia , he has been non compliant with medication and had been abusing street drugs and benzo . as per him i am under survelliance and FBI is watching him , states i messed uup and screwed of FBI agent and since then they are watching me his name is Eve.( he spelled for me). he made diamond spend 8 years in shelter. i can hear them when i am on phone, i heard veterinary hospital attendant talking on hospital phone and i was being watched and God is my witness. denies suicidal /homicidal ideation. states i plug my ears and pray , i plug them so i ca not hear them. remains psychotic and delusional , poor insight and judgement. he is compliant with medications and denies side effects. talked to him regarding long acting injection and he agreed to them. once stable and on invega for 2 weeks will start injectables. Review of Systems Psychiatric: Reports: depression, auditory hallucinations, visual hallucinations , irritability, other Results - Vital Signs Vital Signs: Temp Pulse Resp BP Pulse Ox 97.8 F 116 16 128/86 98 06/25/17 09:00 06/25/17 09:00 06/25/17 09:00 06/25/17 09:00 06/22/17 11:25 Assessment and Plan (1) Acute exacerbation of chronic paranoid schizophrenia Current visit: Yes Status: Acute Plan: Continue hospitalization, Close observation, Suicide Precautions per unit protocol, Encourage participation in unit milieu, Group Therapy, Monitor sleep, Monitor appetite, Family/Supportive other meeting Additional Plan: Continue stabilization with close monitoring, medication invega 6 mg and counselling Risks, benefits, side effects, alternatives discussed w/pt: Yes Patient agreeable to treatment: Yes (2) Suicidal ideation Current visit: Yes Status: Resolved Plan: Continue hospitalization, Close observation, Suicide Precautions per unit protocol, Encourage participation in unit milieu, Group Therapy, Monitor sleep, Family/Supportive other meeting Risks, benefits, side effects, alternatives discussed w/pt: Yes Patient agreeable to treatment: Yes (3) Other stimulant dependence with stimulant-induced anxiety disorder Current visit: Yes Status: Acute Plan: Continue hospitalization, Close observation, Suicide Precautions per unit protocol, Encourage participation in unit milieu, Group Therapy, Monitor sleep, Monitor appetite Risks, benefits, side effects, alternatives discussed w/pt: Yes Patient agreeable to treatment: Yes (4) Sedative, hypnotic or anxiolytic abuse, uncomplicated Current visit: Yes Status: Acute Plan: Continue hospitalization, Close observation, Suicide Precautions per unit protocol, Encourage participation in unit milieu, Group Therapy, Monitor sleep, Monitor appetite, Family/Supportive other meeting Additional Plan: Patient will be discharged to inpatient rehab , he has been educated and agreed to plan. Risks, benefits, side effects, alternatives discussed w/pt: Yes Patient agreeable to treatment: Yes (5) Cannabis abuse, continuous Current visit: Yes Status: Acute Plan: Continue hospitalization, Close observation, Suicide Precautions per unit protocol, Group Therapy, Monitor sleep, Monitor appetite, Family/Supportive other meeting Risks, benefits, side effects, alternatives discussed w/pt: Yes Patient agreeable to treatment: Yes Consult Discharge Plan - Plan Referrals: NONE,PCP [Primary Care Provider] - Psychiatry Exam - Constitutional Vitals: Temp Pulse Resp BP Pulse Ox 97.8 F 116 16 128/86 98 06/25/17 09:00 06/25/17 09:00 06/25/17 09:00 06/25/17 09:00 06/22/17 11:25 General appearance: age & developmentally appropriate - Musculoskeletal Gait: normal Station: other Strength & Tone: normal for patient - Psychiatric Patient Orientation: Yes Person, Yes Time, Yes Place, Yes Circumstance Level of alertness: Alert Behavior: cooperative, talkative Psychomotor activity: Normal Eye Contact: Minimal Contact Mood Description: Anxious Affect description: constricted Speech Volume: Normal Speech pattern: normal rate, normal rhythm, normal tone, coherent Language & Vocabulary: consistent with education Thought Process: Disorganized Thought Content: Yes Paranoid delusion Perceptual Disturbances: Yes Reacting to internal stimuli, Yes Auditory hallucinations, Yes Visual hallucinations Attention Span Ability: Unable to Sustain Attention Memory Description: Grossly Intact Patient Reliability: Questionable Historian Fund of knowledge: Yes average Intelligence Estimate: Average Judgment: Poor Insight: Minimal
[2017-06-25 12:56] LABS: Hematocrit 43.5 % (37.5-50.1); Hemoglobin 14.2 g/dL (12.9-16.9); Mean Corpuscular HGB Conc 32.6 g/dL (31.6-35.5); Mean Corpuscular Hemoglobin 29.5 pg (28.0-33.3); Mean Corpuscular Volume 90.4 fL (83.0-100.0); Mean Platelet Volume 10.8 fL (9.4-12.4); Platelet Count 280 K/mcL (140-400); Red Blood Count 4.81 M/mcL (4.19-5.50); Red Cell Distribution Width 13.2 % (11.5-14.5)
[2017-06-25 13:34] LABS: Estimated Average Glucose 111 mg/dl; Hemoglobin A1C 5.5 %
[2017-06-25] MEDS: hydrOXYzine pamoate 25 MG CAPSULE PO PRN (14:51)
[2017-06-25] MEDS: Ibuprofen 400 MG TABLET PO PRN (14:51)
[2017-06-26] MEDS: Ibuprofen 400 MG TABLET PO PRN ×3 (05:45→23:08)
[2017-06-26] MEDS: hydrOXYzine pamoate 25 MG CAPSULE PO PRN ×2 (06:19→20:14)
[2017-06-26] MEDS: Nicotine 21 MG PATCH.TD24 TD SCH (08:52)
--- NOTE | 2017-06-26 10:56 | Psychiatry Progress Note ---
Date of Encounter: 06/26/17 Time of Encounter: 10:45 Subjective Interval history: Patient seen today ,case d/w treatment team . he is showing slow improvement in his behaviour and no agitation , remains delusional about feds watching me and phones are tapped. i am guilty by association and therefore they are watching me. i got verbal from my guardian to go to rehab. he has guardian who is in other state at present , but informed about his treatment and plans. He is compliant with treatment plan , is attending [facility], appetite is coming back.. he is preoccupied with feds , having hair cur and going to rehab. denies side effects , AIMS 0 cbc is back wnl , hga1c is wnl. Review of Systems Psychiatric: Reports: depression, auditory hallucinations, visual hallucinations , irritability, other Results - Vital Signs Vital Signs: Temp Pulse Resp BP Pulse Ox 98.1 F 111 16 133/80 98 06/26/17 08:20 06/26/17 08:20 06/26/17 08:20 06/26/17 08:20 06/22/17 11:25 - Labs Labs: Laboratory Results - last 24 hr 06/25/17 06/25/17 12:50 12:50 WBC 10.1 RBC 4.81 Hgb 14.2 Hct 43.5 MCV 90.4 MCH 29.5 MCHC 32.6 RDW 13.2 Plt Count 280 MPV 10.8 Est Mean Plasma Glucose 111 Hemoglobin A1c 5.5 Assessment and Plan (1) Acute exacerbation of chronic paranoid schizophrenia Current visit: Yes Status: Acute Risks, benefits, side effects, alternatives discussed w/pt: Yes Patient agreeable to treatment: Yes (2) Suicidal ideation Current visit: Yes Status: Resolved Risks, benefits, side effects, alternatives discussed w/pt: Yes Patient agreeable to treatment: Yes (3) Other stimulant dependence with stimulant-induced anxiety disorder Current visit: Yes Status: Acute Risks, benefits, side effects, alternatives discussed w/pt: Yes Patient agreeable to treatment: Yes (4) Sedative, hypnotic or anxiolytic abuse, uncomplicated Current visit: Yes Status: Acute Risks, benefits, side effects, alternatives discussed w/pt: Yes Patient agreeable to treatment: Yes (5) Cannabis abuse, continuous Current visit: Yes Status: Acute Risks, benefits, side effects, alternatives discussed w/pt: Yes Patient agreeable to treatment: Yes Consult Discharge Plan - Plan Referrals: NONE,PCP [Primary Care Provider] - Psychiatry Exam - Constitutional Vitals: Temp Pulse Resp BP Pulse Ox 98.1 F 111 16 133/80 98 06/26/17 08:20 06/26/17 08:20 06/26/17 08:20 06/26/17 08:20 06/22/17 11:25 General appearance: age & developmentally appropriate - Musculoskeletal Gait: normal Station: other Strength & Tone: normal for patient - Psychiatric Patient Orientation: Yes Person, Yes Time, Yes Place Level of alertness: Alert Behavior: cooperative, talkative Psychomotor activity: Normal Eye Contact: Minimal Contact Mood Description: Euthymic/stable Affect description: constricted Speech Volume: Normal Speech pattern: excessive Language & Vocabulary: consistent with education Thought Process: Circumstantial Thought Content: Yes Preoccupation, Yes Paranoid delusion, Yes Congregational delusion Attention Span Ability: Unable to Sustain Attention Memory Description: Grossly Intact Patient Reliability: Reliable Historian Fund of knowledge: Yes average Intelligence Estimate: Average Judgment: Poor Insight: Minimal
[2017-06-26] MEDS: traZODone 50 MG TABLET PO PRN (20:14)
[2017-06-27] MEDS: hydrOXYzine pamoate 25 MG CAPSULE PO PRN ×3 (00:14→21:07)
[2017-06-27] MEDS: Ibuprofen 400 MG TABLET PO PRN ×3 (05:13→21:06)
[2017-06-27] MEDS: Nicotine 21 MG PATCH.TD24 TD SCH (08:32)
--- NOTE | 2017-06-27 12:28 | Psychiatry Progress Note ---
Date of Encounter: 06/27/17 Time of Encounter: 12:20 Subjective Interval history: Patient see today , case d/w treatment team , states i feel medications have been working better now, i amnot hearing as much voices, i want to go to rehab, but i will do what i am supposed to do , he has circumstantial thought process , my brain wont shut down , i am not withdrawing now. denies side effects. i tell God to stop the fan and it does , as i hear it like humming sound, remains delusional. will increase invega to 9 mg , denies side effects. Review of Systems Psychiatric: Reports: depression, auditory hallucinations, visual hallucinations , irritability, other Results - Vital Signs Vital Signs: Temp Pulse Resp BP Pulse Ox 97.5 F L 96 16 115/78 98 06/27/17 09:00 06/27/17 09:00 06/27/17 09:00 06/27/17 09:00 06/22/17 11:25 Assessment and Plan (1) Acute exacerbation of chronic paranoid schizophrenia Current visit: Yes Status: Acute Risks, benefits, side effects, alternatives discussed w/pt: Yes Patient agreeable to treatment: Yes (2) Suicidal ideation Current visit: Yes Status: Resolved Risks, benefits, side effects, alternatives discussed w/pt: Yes Patient agreeable to treatment: Yes (3) Other stimulant dependence with stimulant-induced anxiety disorder Current visit: Yes Status: Acute Risks, benefits, side effects, alternatives discussed w/pt: Yes Patient agreeable to treatment: Yes (4) Sedative, hypnotic or anxiolytic abuse, uncomplicated Current visit: Yes Status: Acute Risks, benefits, side effects, alternatives discussed w/pt: Yes Patient agreeable to treatment: Yes (5) Cannabis abuse, continuous Current visit: Yes Status: Acute Risks, benefits, side effects, alternatives discussed w/pt: Yes Patient agreeable to treatment: Yes Consult Discharge Plan - Plan Referrals: NONE,PCP [Primary Care Provider] - Psychiatry Exam - Constitutional Vitals: Temp Pulse Resp BP Pulse Ox 97.5 F L 96 16 115/78 98 06/27/17 09:00 06/27/17 09:00 06/27/17 09:00 06/27/17 09:00 06/22/17 11:25 General appearance: age & developmentally appropriate, average - Musculoskeletal Gait: normal Station: other Strength & Tone: normal for patient - Psychiatric Patient Orientation: Yes Person, Yes Time, Yes Place Level of alertness: Alert Behavior: cooperative, talkative Psychomotor activity: Increased Eye Contact: Maintains Eye Contact Mood Description: Anxious Affect description: constricted Speech Volume: Normal Speech pattern: coherent Language & Vocabulary: consistent with education Thought Process: Circumstantial, Racing Thought Content: Yes Paranoid delusion Perceptual Disturbances: Yes Auditory hallucinations Attention Span Ability: Capable of Focused Attention Memory Description: Grossly Intact Patient Reliability: Reliable Historian Fund of knowledge: Yes average Intelligence Estimate: Average Judgment: Limited Insight: Minimal
[2017-06-27] MEDS: traZODone 50 MG TABLET PO PRN (21:07)
[2017-06-28] MEDS: Ibuprofen 400 MG TABLET PO PRN ×2 (05:14→15:43)
[2017-06-28] MEDS: hydrOXYzine pamoate 25 MG CAPSULE PO PRN (07:01)
[2017-06-28] MEDS: Nicotine 21 MG PATCH.TD24 TD SCH (08:56)
--- NOTE | 2017-06-28 11:07 | Psychiatry Progress Note ---
Date of Encounter: 06/28/17 Time of Encounter: 10:49 Subjective Interval history: Patient seen today case d/w treatment team , he had behavioral problem yeaterday , he threw his tray and was angry but was redirected verbally. this morning he is restless, states i have anger problem , i was mad as i could not talk to my daughter and thats why i threw the food tray. He refused to take 9 mg of invega which was increased because of his psychsis and anger. he states he is fine with 6 mg and will take bare minimal. i want to go to rehab. he is nervous and restless and denies side effects. his BP is stable , but has increase pulse as feels anxious, and worried about FBI watching him and keeping tracking of all his moves. will start vistaril schedule and not prn for his anxiety and he agreed with the plan. Review of Systems Psychiatric: Reports: depression, auditory hallucinations, visual hallucinations , irritability, other Results - Vital Signs Vital Signs: Temp Pulse Resp BP Pulse Ox 97.5 F L 105 16 110/80 98 06/27/17 20:08 06/27/17 20:08 06/27/17 20:08 06/27/17 20:08 06/22/17 11:25 Assessment and Plan (1) Acute exacerbation of chronic paranoid schizophrenia Current visit: Yes Status: Acute Risks, benefits, side effects, alternatives discussed w/pt: Yes Patient agreeable to treatment: Yes (2) Suicidal ideation Current visit: Yes Status: Resolved Risks, benefits, side effects, alternatives discussed w/pt: Yes Patient agreeable to treatment: Yes (3) Other stimulant dependence with stimulant-induced anxiety disorder Current visit: Yes Status: Acute Risks, benefits, side effects, alternatives discussed w/pt: Yes Patient agreeable to treatment: Yes (4) Sedative, hypnotic or anxiolytic abuse, uncomplicated Current visit: Yes Status: Acute Risks, benefits, side effects, alternatives discussed w/pt: Yes Patient agreeable to treatment: Yes (5) Cannabis abuse, continuous Current visit: Yes Status: Acute Risks, benefits, side effects, alternatives discussed w/pt: Yes Patient agreeable to treatment: Yes Consult Discharge Plan - Plan Referrals: NONE,PCP [Primary Care Provider] - Psychiatry Exam - Constitutional Vitals: Temp Pulse Resp BP Pulse Ox 97.5 F L 105 16 110/80 98 06/27/17 20:08 06/27/17 20:08 06/27/17 20:08 06/27/17 20:08 06/22/17 11:25 General appearance: age & developmentally appropriate, average - Musculoskeletal Gait: normal Station: other Strength & Tone: normal for patient - Psychiatric Patient Orientation: Yes Person, Yes Time, Yes Place Level of alertness: Alert Behavior: nervous, anxious, restless Psychomotor activity: Increased Eye Contact: Maintains Eye Contact Mood Description: Anxious, Irritable Affect description: constricted Speech Volume: Normal Speech pattern: normal rate, normal rhythm, normal tone, fluent, spontaneous Language & Vocabulary: consistent with education Thought Content: Yes Preoccupation, Yes Paranoid delusion Perceptual Disturbances: Yes Auditory hallucinations Attention Span Ability: Unable to Sustain Attention Memory Description: Grossly Intact Patient Reliability: Reliable Historian Fund of knowledge: Yes abstraction ability, Yes aware of current events Intelligence Estimate: Average Judgment: Poor Insight: Minimal
[2017-06-28] MEDS: hydrOXYzine pamoate 25 MG CAPSULE PO SCH ×2 (15:15→20:56)
[2017-06-28] MEDS: traZODone 50 MG TABLET PO PRN (22:47)
[2017-06-29] MEDS: Ibuprofen 400 MG TABLET PO PRN ×2 (06:19→14:01)
[2017-06-29] MEDS: Nicotine 21 MG PATCH.TD24 TD SCH (09:01)
[2017-06-29] MEDS: hydrOXYzine pamoate 25 MG CAPSULE PO SCH ×3 (09:02→20:52)
--- NOTE | 2017-06-29 12:44 | Psychiatry Progress Note ---
Date of Encounter: 06/29/17 Time of Encounter: 11:10 Subjective Interval history: Patient seen today 2 times , case d/w staff and treatment team. he was very loud, threathening other patient to smash his head. states other client told him that this client had hurt his and i do not like people hurting women i will hurt him , prn medications given as he was not verbally redirected. he has been calm since but gets upset easily , he wants to be locked in the room , he is significantly paranoid and agitated off and on second prn medications given as vvery agitated and he calmed down , had his lunch , keeping close eye on him . also the client he is threatening is put on 1:1 as he is mostly in his room and calm and cooperative. at present will start depakote and as he has been refusing increase dose of invega will give him seroquel 200 mg bid prn for agitation. continue close observation. Review of Systems Psychiatric: Reports: depression, auditory hallucinations, visual hallucinations , irritability, other Results - Vital Signs Vital Signs: Temp Pulse Resp BP Pulse Ox 97.2 F L 96 18 126/83 98 06/29/17 09:00 06/29/17 09:00 06/29/17 09:00 06/29/17 09:00 06/22/17 11:25 Assessment and Plan (1) Acute exacerbation of chronic paranoid schizophrenia Current visit: Yes Status: Acute Risks, benefits, side effects, alternatives discussed w/pt: Yes Patient agreeable to treatment: Yes (2) Suicidal ideation Current visit: Yes Status: Resolved Risks, benefits, side effects, alternatives discussed w/pt: Yes Patient agreeable to treatment: Yes (3) Other stimulant dependence with stimulant-induced anxiety disorder Current visit: Yes Status: Acute Risks, benefits, side effects, alternatives discussed w/pt: Yes Patient agreeable to treatment: Yes (4) Sedative, hypnotic or anxiolytic abuse, uncomplicated Current visit: Yes Status: Acute Risks, benefits, side effects, alternatives discussed w/pt: Yes Patient agreeable to treatment: Yes (5) Cannabis abuse, continuous Current visit: Yes Status: Acute Risks, benefits, side effects, alternatives discussed w/pt: Yes Patient agreeable to treatment: Yes Consult Discharge Plan - Plan Referrals: NONE,PCP [Primary Care Provider] - Psychiatry Exam - Constitutional Vitals: Temp Pulse Resp BP Pulse Ox 97.2 F L 96 18 126/83 98 06/29/17 09:00 06/29/17 09:00 06/29/17 09:00 06/29/17 09:00 06/22/17 11:25 General appearance: age & developmentally appropriate - Musculoskeletal Gait: normal Station: other Strength & Tone: normal for patient - Psychiatric Patient Orientation: Yes Person, Yes Time, Yes Place, Yes Circumstance Level of alertness: Alert Behavior: aggressive, uncooperative, impulsive Psychomotor activity: Agitated Eye Contact: Maintains Eye Contact Mood Description: Angry, Labile, Irritable Affect description: labile Speech Volume: Loud Speech pattern: slurred, pressured Language & Vocabulary: consistent with education Thought Process: Circumstantial Thought Content: Yes Homicidal ideation, Yes Preoccupation, Yes Paranoid delusion Perceptual Disturbances: Yes Reacting to internal stimuli Attention Span Ability: Unable to Sustain Attention Memory Description: Grossly Intact Patient Reliability: Questionable Historian Fund of knowledge: Yes average Intelligence Estimate: Average Judgment: Poor Insight: Minimal
[2017-06-29] MEDS: Divalproex (12 HR) 250 MG TABLET PO SCH ×2 (13:05→20:52)
[2017-06-30] MEDS: Ibuprofen 400 MG TABLET PO PRN ×2 (04:58→12:25)
--- NOTE | 2017-06-30 08:09 | Psychiatry Progress Note ---
Date of Encounter: 06/30/17 Time of Encounter: 07:40 Subjective Interval history: Patient seen today , case d/w staff , he was given prn medications for his agitation , last night as per him did not sleep well, still angry and impulsive ,refusing depakote , refusing more than 6 mg invega , does not feel he needs them and remains psychotic. need to be monitored closely and his threatehning behaviour towards other client. Review of Systems Psychiatric: Reports: depression, auditory hallucinations, visual hallucinations , irritability, other Results - Vital Signs Vital Signs: Temp Pulse Resp BP Pulse Ox 98.2 F 98 16 102/72 98 06/29/17 20:37 06/29/17 20:37 06/29/17 20:37 06/29/17 20:37 06/22/17 11:25 Assessment and Plan (1) Acute exacerbation of chronic paranoid schizophrenia Current visit: Yes Status: Acute Risks, benefits, side effects, alternatives discussed w/pt: Yes Patient agreeable to treatment: Yes (2) Suicidal ideation Current visit: Yes Status: Resolved Risks, benefits, side effects, alternatives discussed w/pt: Yes Patient agreeable to treatment: Yes (3) Other stimulant dependence with stimulant-induced anxiety disorder Current visit: Yes Status: Acute Risks, benefits, side effects, alternatives discussed w/pt: Yes Patient agreeable to treatment: Yes (4) Sedative, hypnotic or anxiolytic abuse, uncomplicated Current visit: Yes Status: Acute Risks, benefits, side effects, alternatives discussed w/pt: Yes Patient agreeable to treatment: Yes (5) Cannabis abuse, continuous Current visit: Yes Status: Acute Risks, benefits, side effects, alternatives discussed w/pt: Yes Patient agreeable to treatment: Yes Consult Discharge Plan - Plan Referrals: NONE,PCP [Primary Care Provider] - Psychiatry Exam - Constitutional Vitals: Temp Pulse Resp BP Pulse Ox 98.2 F 98 16 102/72 98 06/29/17 20:37 06/29/17 20:37 06/29/17 20:37 06/29/17 20:37 06/22/17 11:25 General appearance: age & developmentally appropriate - Musculoskeletal Gait: normal Station: relaxed Strength & Tone: normal for patient - Psychiatric Patient Orientation: Yes Person, Yes Time, Yes Place Level of alertness: Alert Behavior: anxious, guarded Psychomotor activity: Normal Eye Contact: Minimal Contact Mood Description: Anxious, Irritable Affect description: congruent with mood Speech Volume: Normal Speech pattern: coherent Language & Vocabulary: consistent with education Thought Process: Racing Thought Content: Yes Homicidal ideation, Yes Paranoid delusion Perceptual Disturbances: Yes Reacting to internal stimuli Attention Span Ability: Unable to Sustain Attention Memory Description: Grossly Intact Patient Reliability: Reliable Historian Fund of knowledge: Yes average Intelligence Estimate: Average Judgment: Poor Insight: Minimal
[2017-06-30] MEDS: Divalproex (12 HR) 250 MG TABLET PO SCH ×2 (08:57→20:57)
[2017-06-30] MEDS: hydrOXYzine pamoate 25 MG CAPSULE PO SCH ×3 (08:57→20:38)
[2017-06-30] MEDS: Nicotine 21 MG PATCH.TD24 TD SCH (09:02)
[2017-06-30] MEDS: traZODone 50 MG TABLET PO PRN (20:38)
[2017-07-01] MEDS: Ibuprofen 400 MG TABLET PO PRN ×2 (04:49→11:33)
[2017-07-01] MEDS: hydrOXYzine pamoate 25 MG CAPSULE PO SCH ×3 (08:19→20:20)
[2017-07-01] MEDS: Divalproex (12 HR) 250 MG TABLET PO SCH ×2 (08:19→20:23)
[2017-07-01] MEDS: Nicotine 21 MG PATCH.TD24 TD SCH (08:19)
--- NOTE | 2017-07-01 08:21 | Psychiatry Progress Note ---
Date of Encounter: 07/01/17 Time of Encounter: 08:00 Subjective Interval history: Patient seen today case d/w staff. He is not sleeping well as per him , awake since 2 am , i will not take seroquel or depakote . i need something else , trazodone dpes not help me , makes me bad. he is still labile , at times irritable and loud. he denies si/hi today but remains delusional and mood instability , he has been refusing medication , only compliant with invega , does not want to take 9 mg , he is preoccupied with rehab , states thats where he will feel better not here. will add remeron 7.5 for sleep and anxiety .and dc zoloft as 2 antidepressant can make him more irritable as he is refusing depakote. Review of Systems Psychiatric: Reports: depression, auditory hallucinations, visual hallucinations , irritability, other Results - Vital Signs Vital Signs: Temp Pulse Resp BP Pulse Ox 98.4 F 87 16 118/69 98 06/30/17 19:57 06/30/17 19:57 06/30/17 19:57 06/30/17 19:57 06/22/17 11:25 Assessment and Plan (1) Acute exacerbation of chronic paranoid schizophrenia Current visit: Yes Status: Acute Risks, benefits, side effects, alternatives discussed w/pt: Yes Patient agreeable to treatment: Yes (2) Suicidal ideation Current visit: Yes Status: Resolved Risks, benefits, side effects, alternatives discussed w/pt: Yes Patient agreeable to treatment: Yes (3) Other stimulant dependence with stimulant-induced anxiety disorder Current visit: Yes Status: Acute Risks, benefits, side effects, alternatives discussed w/pt: Yes Patient agreeable to treatment: Yes (4) Sedative, hypnotic or anxiolytic abuse, uncomplicated Current visit: Yes Status: Acute Risks, benefits, side effects, alternatives discussed w/pt: Yes Patient agreeable to treatment: Yes (5) Cannabis abuse, continuous Current visit: Yes Status: Acute Risks, benefits, side effects, alternatives discussed w/pt: Yes Patient agreeable to treatment: Yes Consult Discharge Plan - Plan Referrals: NONE,PCP [Primary Care Provider] - Psychiatry Exam - Constitutional Vitals: Temp Pulse Resp BP Pulse Ox 98.4 F 87 16 118/69 98 06/30/17 19:57 06/30/17 19:57 06/30/17 19:57 06/30/17 19:57 06/22/17 11:25 General appearance: age & developmentally appropriate, well-groomed, well- nourished - Musculoskeletal Gait: normal Station: relaxed Strength & Tone: normal for patient - Psychiatric Patient Orientation: Yes Person, Yes Time, Yes Place Level of alertness: Alert Behavior: cooperative, anxious, distractible Psychomotor activity: Increased Eye Contact: Maintains Eye Contact Mood Description: Anxious, Labile Affect description: labile Speech Volume: Loud Speech pattern: pressured Language & Vocabulary: consistent with education Thought Process: Racing Thought Content: Yes Preoccupation, Yes Paranoid delusion Attention Span Ability: Unable to Sustain Attention Memory Description: Grossly Intact Patient Reliability: Reliable Historian Fund of knowledge: Yes aware of current events Intelligence Estimate: Average Judgment: Poor Insight: Minimal
[2017-07-01] MEDS: Mirtazapine 15 MG TABLET PO SCH (20:20)
[2017-07-02] MEDS: Ibuprofen 400 MG TABLET PO PRN ×2 (06:54→13:11)
[2017-07-02] MEDS: hydrOXYzine pamoate 25 MG CAPSULE PO SCH ×3 (08:20→20:33)
[2017-07-02] MEDS: Divalproex (12 HR) 250 MG TABLET PO SCH (08:20)
[2017-07-02] MEDS: Nicotine 21 MG PATCH.TD24 TD SCH (08:23)
--- NOTE | 2017-07-02 11:28 | Psychiatry Progress Note ---
Date of Encounter: 07/02/17 Time of Encounter: 09:00 Subjective Interval history: Sajan is seen today for follow-up. Previous notes reviewed. Patient's treatment discussed in treatment team. Guardian has been contacted and agreeable to med changes as necessary. She will be coming tomorrow to sign paperwork. Patient reports that he would like to go to rehabilitation and has a place picked out. He is willing to work with staff to coordinate possible transfer to rehabilitation. He is not taking Depakote and states this medicine gives him side effects. He reports the other medicine including being vague are helping a lot with his auditory hallucinations. He reports he is sleeping well. He denies suicidal or homicidal ideation, intent, or plan. Review of Systems Psychiatric: Reports: depression, auditory hallucinations, irritability, mood swings Results - Vital Signs Vital Signs: Temp Pulse Resp BP Pulse Ox 98.3 F 101 16 106/78 98 07/02/17 08:48 07/02/17 08:48 07/02/17 08:48 07/02/17 08:48 06/22/17 11:25 Assessment and Plan (1) Acute exacerbation of chronic paranoid schizophrenia Current visit: Yes Status: Acute Plan: Continue hospitalization, Close observation, Suicide Precautions per unit protocol, Encourage participation in unit milieu, Group Therapy, Monitor sleep, Monitor appetite Additional Plan: Discontinue Depakote. Continue current meds for sleep. Monitor sleep. Continuing Invega and Seroquel for now. Plans to cross taper as tolerated as an outpatient. Risks, benefits, side effects, alternatives discussed w/pt: Yes Patient agreeable to treatment: Yes (2) Other stimulant dependence with stimulant-induced anxiety disorder Current visit: Yes Status: Acute Plan: Continue hospitalization Additional Plan: Recommend substance abuse treatment. Risks, benefits, side effects, alternatives discussed w/pt: Yes Patient agreeable to treatment: Yes (3) Sedative, hypnotic or anxiolytic abuse, uncomplicated Current visit: Yes Status: Acute Risks, benefits, side effects, alternatives discussed w/pt: Yes Patient agreeable to treatment: Yes (4) Cannabis abuse, continuous Current visit: Yes Status: Acute Risks, benefits, side effects, alternatives discussed w/pt: Yes Patient agreeable to treatment: Yes (5) Patient's noncompliance with other medical treatment and regimen Current visit: Yes Status: Acute Risks, benefits, side effects, alternatives discussed w/pt: Yes Patient agreeable to treatment: Yes Consult Discharge Plan - Plan Referrals: NONE,PCP [Primary Care Provider] - Psychiatry Exam - Constitutional Vitals: Temp Pulse Resp BP Pulse Ox 98.3 F 101 16 106/78 98 07/02/17 08:48 07/02/17 08:48 07/02/17 08:48 07/02/17 08:48 06/22/17 11:25 General appearance: unkempt, disheveled, thin - Musculoskeletal Gait: normal Station: relaxed Strength & Tone: normal for patient - Psychiatric Patient Orientation: Yes Person, Yes Place Level of alertness: Alert Behavior: restless, guarded Psychomotor activity: Increased Eye Contact: Minimal Contact Mood Description: Euthymic/stable Affect description: blunted Speech Volume: Normal Speech pattern: normal rate, normal rhythm, normal tone Language & Vocabulary: limited Thought Process: [place] Thought Content: No Suicidal ideation, No Homicidal ideation Perceptual Disturbances: No Reacting to internal stimuli, Yes Auditory hallucinations (Improving ) Attention Span Ability: Capable of Focused Attention Memory Description: Grossly Intact Patient Reliability: Not Reliable Historian Fund of knowledge: Yes below average Intelligence Estimate: Below Average Judgment: Limited Insight: Minimal
[2017-07-02] MEDS: Mirtazapine 15 MG TABLET PO SCH (20:33)
[2017-07-03] MEDS: Nicotine 21 MG PATCH.TD24 TD SCH (08:07)
[2017-07-03] MEDS: hydrOXYzine pamoate 25 MG CAPSULE PO SCH ×3 (08:07→20:06)
[2017-07-03] MEDS ORDERED: traZODone 50 MG TABLET PO PRN (10:05)
--- NOTE | 2017-07-03 10:51 | Psychiatry Progress Note ---
Date of Encounter: 07/03/17 Time of Encounter: 09:30 Subjective Interval history: Sajan is seen today for follow-up. He reports he is "pretty good." He is sleeping well with the quetiapine and finally told full dose of 9 mg of Invega this morning. He is still fixated on discharge area he reports he has a bed at a rehabilitation center in [place] but we have been unable to confirm this. Guardian will begin today to sign paperwork and reviewed treatment plan. Patient becomes agitated when he is told he is not going home today. He threw something across the floor. To staff members he has been agitated at times and labile emotionally. He denies thoughts about wanting hurt himself or others prior to getting upset today. He is agreeable to some medication adjustments to improve mood and sleep. Review of Systems Constitutional: Denies: fever, chills, weakness, weight change Eyes: Denies: eye pain, vision change Ears, Nose, Throat: Denies: ear pain, throat pain, dental pain, hearing loss, congestion Cardiovascular: Denies: chest pain, palpitations, dyspnea on exertion Respiratory: Denies: cough, dyspnea, wheezes Gastrointestinal: Denies: abdominal pain, nausea, vomiting, diarrhea, constipation Musculoskeletal: Denies: joint swelling, joint pain Neurological: Denies: headache, weakness, numbness, memory loss Psychiatric: Reports: depression, anxiety, abnormal sleep pattern, auditory hallucinations, irritability, mood swings Results - Vital Signs Vital Signs: Temp Pulse Resp BP Pulse Ox 97.2 F L 85 16 97/71 98 07/03/17 08:46 07/03/17 08:46 07/03/17 08:46 07/03/17 08:46 06/22/17 11:25 Assessment and Plan (1) Acute exacerbation of chronic paranoid schizophrenia Current visit: Yes Status: Acute Plan: Continue hospitalization, Close observation, Suicide Precautions per unit protocol, Encourage participation in unit milieu, Group Therapy, Monitor sleep, Monitor appetite Additional Plan: We will continue Invega. We will DC Seroquel as patient has not been taking this regularly. We will use alternative sleep aids to help patient get rest at night and focus on Invega for use for patient's psychosis. Trazodone for sleep and we will increase dosage. D/C Remeron as patient does not want to take this. Continue to encourage positive coping strategies and coping skills to deal with stressors. Risks, benefits, side effects, alternatives discussed w/pt: Yes Patient agreeable to treatment: Yes (2) Other stimulant dependence with stimulant-induced anxiety disorder Current visit: Yes Status: Acute Risks, benefits, side effects, alternatives discussed w/pt: Yes Patient agreeable to treatment: Yes (3) Sedative, hypnotic or anxiolytic abuse, uncomplicated Current visit: Yes Status: Acute Risks, benefits, side effects, alternatives discussed w/pt: Yes Patient agreeable to treatment: Yes (4) Cannabis abuse, continuous Current visit: Yes Status: Acute Risks, benefits, side effects, alternatives discussed w/pt: Yes Patient agreeable to treatment: Yes (5) Patient's noncompliance with other medical treatment and regimen Current visit: Yes Status: Acute Risks, benefits, side effects, alternatives discussed w/pt: Yes Patient agreeable to treatment: Yes Consult Discharge Plan - Plan Referrals: NONE,PCP [Primary Care Provider] - Psychiatry Exam - Constitutional Vitals: Temp Pulse Resp BP Pulse Ox 97.2 F L 85 16 97/71 98 07/03/17 08:46 07/03/17 08:46 07/03/17 08:46 07/03/17 08:46 06/22/17 11:25 General appearance: unkempt - Musculoskeletal Gait: normal Station: slouched Strength & Tone: normal for patient - Psychiatric Patient Orientation: Yes Person, Yes Time, Yes Place, Yes Circumstance Level of alertness: Alert Behavior: agitated, hostile, restless Psychomotor activity: Increased Eye Contact: Fleeting Contact Mood Description: Euthymic/stable Affect description: labile Speech Volume: Loud Speech pattern: rambling Language & Vocabulary: limited, use of profanity Thought Process: [place] Thought Content: No Suicidal ideation, No Homicidal ideation Perceptual Disturbances: No Auditory hallucinations, No Visual hallucinations Attention Span Ability: Capable of Focused Attention Memory Description: Grossly Intact Patient Reliability: Not Reliable Historian Fund of knowledge: Yes below average Intelligence Estimate: Below Average Judgment: Limited Insight: None
[2017-07-03] MEDS: Ibuprofen 400 MG TABLET PO PRN ×2 (12:39→20:06)
[2017-07-04] MEDS: Ibuprofen 400 MG TABLET PO PRN ×2 (03:08→20:10)
[2017-07-04] MEDS: hydrOXYzine pamoate 25 MG CAPSULE PO SCH ×3 (08:03→20:08)
[2017-07-04] MEDS: Nicotine 21 MG PATCH.TD24 TD SCH (08:04)
--- NOTE | 2017-07-04 10:56 | Psychiatry Progress Note ---
Date of Encounter: 07/04/17 Time of Encounter: 08:30 Subjective Interval history: Patient is seen today for follow-up. He apologized for his behavior yesterday and states that he is frustrated that he has been unable to leave the hospital. We discussed the importance of morning coping strategies to deal with anger. Yesterday, this provider spoke with the patient's guardian who approved transitioning completely to Invaga and eventually transitioning to Invega IM injectable. Patient is hesitant because he is concerned "wear off." Discussed that he should discuss this with his guardian who is in charge of his medications. He does not think the trazodone helps completely with his sleep but per staff he got at least 6 hours of sleep last night. He is agreeable to adjusting the trazodone further. He denies SI or HI. He is now wanting to go stay with a friend in [place] after discharge. Review of Systems Constitutional: Denies: fever, chills, weakness, weight change Eyes: Denies: eye pain, vision change Ears, Nose, Throat: Denies: ear pain, throat pain, dental pain, hearing loss, congestion Cardiovascular: Denies: chest pain, palpitations, dyspnea on exertion Respiratory: Denies: cough, dyspnea, wheezes Gastrointestinal: Denies: abdominal pain, nausea, vomiting, diarrhea, constipation Musculoskeletal: Denies: joint swelling, joint pain Neurological: Denies: headache, weakness, numbness, memory loss Psychiatric: Reports: anxiety, abnormal sleep pattern, irritability, mood swings Results - Vital Signs Vital Signs: Temp Pulse Resp BP Pulse Ox 97.1 F L 51 16 103/66 98 07/04/17 08:33 07/04/17 08:33 07/04/17 08:33 07/04/17 08:33 06/22/17 11:25 Assessment and Plan (1) Acute exacerbation of chronic paranoid schizophrenia Current visit: Yes Status: Acute Plan: Continue hospitalization, Close observation, Suicide Precautions per unit protocol, Encourage participation in unit milieu, Group Therapy, Monitor sleep, Monitor appetite Additional Plan: We will continue Invega 9 mg by mouth daily. Plan to give IM shot prior to discharge. Patient will need to a 234 mg IM the first day and then a 156 mg one week after. Coordinate with guardian about appropriate discharge planning. Continue to encourage positive coping strategies to deal with stressors. Increase trazodone. Risks, benefits, side effects, alternatives discussed w/pt: Yes Patient agreeable to treatment: Yes (2) Other stimulant dependence with stimulant-induced anxiety disorder Current visit: Yes Status: Acute Risks, benefits, side effects, alternatives discussed w/pt: Yes Patient agreeable to treatment: Yes (3) Sedative, hypnotic or anxiolytic abuse, uncomplicated Current visit: Yes Status: Acute Risks, benefits, side effects, alternatives discussed w/pt: Yes Patient agreeable to treatment: Yes (4) Cannabis abuse, continuous Current visit: Yes Status: Acute Risks, benefits, side effects, alternatives discussed w/pt: Yes Patient agreeable to treatment: Yes (5) Patient's noncompliance with other medical treatment and regimen Current visit: Yes Status: Acute Risks, benefits, side effects, alternatives discussed w/pt: Yes Patient agreeable to treatment: Yes Consult Discharge Plan - Plan Referrals: NONE,PCP [Primary Care Provider] - Psychiatry Exam - Constitutional Vitals: Temp Pulse Resp BP Pulse Ox 97.1 F L 51 16 103/66 98 07/04/17 08:33 07/04/17 08:33 07/04/17 08:33 07/04/17 08:33 06/22/17 11:25 General appearance: age & developmentally appropriate - Musculoskeletal Gait: normal Station: relaxed Strength & Tone: normal for patient - Psychiatric Patient Orientation: Yes Person, Yes Time, Yes Place Level of alertness: Alert Behavior: cooperative, restless Psychomotor activity: Normal Eye Contact: Fleeting Contact Mood Description: Euthymic/stable Affect description: other (Mildly agitated) Speech Volume: Loud Speech pattern: excessive Language & Vocabulary: grade school level Thought Process: [place] Thought Content: No Suicidal ideation, No Homicidal ideation Perceptual Disturbances: No Auditory hallucinations, No Visual hallucinations Attention Span Ability: Capable of Focused Attention Memory Description: Grossly Intact Patient Reliability: Questionable Historian Fund of knowledge: Yes below average Intelligence Estimate: Below Average Judgment: Limited Insight: Minimal
[2017-07-04] MEDS: traZODone 50 MG TABLET PO PRN (20:09)
[2017-07-05] MEDS: Nicotine 21 MG PATCH.TD24 TD SCH (08:36)
[2017-07-05] MEDS: hydrOXYzine pamoate 25 MG CAPSULE PO SCH ×3 (08:37→21:08)
--- NOTE | 2017-07-05 10:11 | Psychiatry Progress Note ---
Date of Encounter: 07/05/17 Time of Encounter: 08:40 Subjective Interval history: Sajan is seen today for follow-up. Nursing notes reviewed. Patient states he slept better with the increased dose of trazodone. Overall feels his mood is much improved. Patient states that he is trying to work on controlling his emotions and not "blowing up when I am upset." Per staff patient has been less emotionally labile and coping better with stressors. Coordinate with guardian and plan for discharge tomorrow. Patient and Guardian have both agreed to Invega injections to help increase compliance. Review of Systems Psychiatric: Reports: anxiety, abnormal sleep pattern, irritability Results - Vital Signs Vital Signs: Temp Pulse Resp BP Pulse Ox 99.0 F 107 18 118/83 98 07/04/17 20:40 07/04/17 20:40 07/04/17 20:40 07/04/17 20:40 06/22/17 11:25 Assessment and Plan (1) Acute exacerbation of chronic paranoid schizophrenia Current visit: Yes Status: Acute Plan: Continue hospitalization, Close observation, Suicide Precautions per unit protocol, Encourage participation in unit milieu, Group Therapy, Monitor sleep, Monitor appetite Additional Plan: Initial Invega Sustenna shot to be given on Sunday. Next dose to be given in 7 days after that which has been faxed outpatient pharmacy. We will confirm that this dosing has been approved and is available for pickup prior to discharge. Continue to coordinate outpatient follow-up with his outpatient psychiatrist. Encourage positive coping strategies. Risks, benefits, side effects, alternatives discussed w/pt: Yes Patient agreeable to treatment: Yes (2) Other stimulant dependence with stimulant-induced anxiety disorder Current visit: Yes Status: Acute Risks, benefits, side effects, alternatives discussed w/pt: Yes Patient agreeable to treatment: Yes (3) Sedative, hypnotic or anxiolytic abuse, uncomplicated Current visit: Yes Status: Acute Risks, benefits, side effects, alternatives discussed w/pt: Yes Patient agreeable to treatment: Yes (4) Cannabis abuse, continuous Current visit: Yes Status: Acute Risks, benefits, side effects, alternatives discussed w/pt: Yes Patient agreeable to treatment: Yes (5) Patient's noncompliance with other medical treatment and regimen Current visit: Yes Status: Acute Risks, benefits, side effects, alternatives discussed w/pt: Yes Patient agreeable to treatment: Yes Consult Discharge Plan - Plan Referrals: [facility] [Outside] - 07/10/17 3:30 pm (The above appointment is with Alma Ramos for outpatient mental health and substance abuse counseling services.) [facility] [Outside] - 07/16/17 11:00 am (The above appointment is with Dr. Morillo for outpatient psychiatric assessment and medication management services. Please arrive 15 minutes early to complete paperwork. *Please bring your filled Invega Sustenna with you so your injection can be given.* Please bring your insurance card, photo ID and medications in their original bottles. If you do not have insurance, bring proof of income to apply for the sliding fee scale. If you are unable to keep this appointment, 24 hour business notice of cancellation is expected. The above appointment(s) reflects first availability. You may contact the office regularly to check for cancellations that may allow you to be seen sooner.) Prescriptions: Paliperidone Palmitate [Invega Sustenna] 156 mg IM Q4W #1 mls Psychiatry Exam - Constitutional Vitals: Temp Pulse Resp BP Pulse Ox 99.0 F 107 18 118/83 98 07/04/17 20:40 07/04/17 20:40 07/04/17 20:40 07/04/17 20:40 06/22/17 11:25 General appearance: well-groomed, average - Musculoskeletal Gait: normal Station: relaxed Strength & Tone: normal for patient - Psychiatric Patient Orientation: Yes Person, Yes Time, Yes Place Level of alertness: Alert Behavior: calm, cooperative Psychomotor activity: Normal Eye Contact: Maintains Eye Contact Mood Description: Euthymic/stable Affect description: congruent with mood, full range Speech Volume: Normal Speech pattern: normal rate, normal rhythm, normal tone Language & Vocabulary: grade school level Thought Process: Intact, [place] Thought Content: No Suicidal ideation, No Homicidal ideation, No Overt delusions Perceptual Disturbances: Yes Reacting to internal stimuli Attention Span Ability: Capable of Focused Attention Memory Description: Grossly Intact Patient Reliability: Questionable Historian Fund of knowledge: Yes below average Intelligence Estimate: Below Average Judgment: Limited Insight: Minimal
[2017-07-05] MEDS: Ibuprofen 400 MG TABLET PO PRN ×2 (14:00→21:09)
[2017-07-05] MEDS: traZODone 50 MG TABLET PO PRN (21:10)
[2017-07-06] MEDS: Ibuprofen 400 MG TABLET PO PRN (04:18)
[2017-07-06] MEDS: Nicotine 21 MG PATCH.TD24 TD SCH (08:55)
[2017-07-06] MEDS: hydrOXYzine pamoate 25 MG CAPSULE PO SCH (08:55)
[2017-07-06] MEDS ORDERED: (Paliperidone Palmitate [Invega Sustenna] 234 MG) IM ONE ×2 (09:30→09:45)
--- NOTE | 2017-07-06 09:46 | Discharge Summary ---
Date of Encounter: 07/06/17 Time of Encounter: 08:35 Diagnosis - Discharge Diagnosis (1) Acute exacerbation of chronic paranoid schizophrenia Status: Acute (2) Other stimulant dependence with stimulant-induced anxiety disorder Priority: Secondary Status: Acute (3) Sedative, hypnotic or anxiolytic abuse, uncomplicated Priority: Secondary Status: Acute (4) Cannabis abuse, continuous Priority: Secondary Status: Acute (5) Patient's noncompliance with other medical treatment and regimen Priority: Secondary Status: Acute Medications - Discharge Medications Prescriptions: hydrOXYzine pamoate [HydrOXYzine Pamoate] 50 mg PO TID #90 capsule Paliperidone [Invega] 9 mg PO DAILY 30 Days #30 tab.er.[id number] Paliperidone Palmitate [Invega Sustenna] 156 mg IM Q4W #1 mls traZODone [TraZODone] 200 mg PO HS PRN #120 tablet PRN Reason: Insomnia Paliperidone Palmitate [Invega Sustenna] 156 mg IM Q4W #1 mls 07/05/17 [Rx] Paliperidone [Invega] 9 mg PO DAILY 30 Days #30 tab.er.[id number] 07/06/17 [Rx] hydrOXYzine pamoate [HydrOXYzine Pamoate] 50 mg PO TID #90 capsule 07/06/17 [Rx] traZODone [TraZODone] 200 mg PO HS PRN #120 tablet 07/06/17 [Rx] 3 Allergy/AdvReac Type Severity Reaction Status Date / Time haloperidol [From Haldol] Allergy See Verified 11/03/15 19:16 Comments Results Procedures and tests throughout hospitalization: Completed Lab Orders Category Date Time Status CBC no Diff [Complete Blood Count w/o Diff] [HEME] Lab 06/25/17 12:50 Completed Routine Hgb A1C Routine Lab 06/25/17 12:50 Completed Provider Date of admission: 06/22/17 11:11 Primary care physician: PCP NONE Discharging clinician: Nilsa García Psychiatry Exam - Constitutional Vitals: Temp Pulse Resp BP Pulse Ox 98.1 F 99 16 104/70 98 07/05/17 20:15 07/05/17 20:15 07/05/17 20:15 07/05/17 20:15 06/22/17 11:25 General appearance: age & developmentally appropriate, well-groomed, well- nourished - Musculoskeletal Gait: normal Station: relaxed Strength & Tone: normal for patient - Psychiatric Patient Orientation: Yes Person, Yes Time, Yes Place Level of alertness: Alert Behavior: calm, cooperative Psychomotor activity: Normal Eye Contact: Maintains Eye Contact Mood Description: Euthymic/stable Affect description: congruent with mood, full range Speech Volume: Normal Speech pattern: normal rate, normal rhythm, normal tone, fluent, spontaneous Language & Vocabulary: limited Thought Process: Goal Oriented, [place] Thought Content: No Suicidal ideation, No Homicidal ideation, No Overt delusions Perceptual Disturbances: No Auditory hallucinations, No Visual hallucinations Attention Span Ability: Capable of Focused Attention Memory Description: Grossly Intact Patient Reliability: Questionable Historian Fund of knowledge: Yes below average, No aware of current events Intelligence Estimate: Below Average Judgment: Limited Insight: Minimal Hospital Course Hospital course: Mr. Oates is a 41 year old male with a histoy of schizophrenia, lower intellectual functioning, substance abuse who presented to the hospital with paranoia and poorly controlled chronic schizophrenia. He was admitted to for psychiatric stabilization. He is incorporated into the therapeutic milieu and offer group and individual as well as recreational therapy. He is also offered psychoeducational materials and supportive therapy. He was placed on suicide precautions and close observation per unit protocol. Patient was started on several medications and reports he had a reaction to Depakote. This was discontinued. Patient was started on anything that was also Seroquel. The Seroquel was tapered and patient was placed on trazodone for sleep. Invega was helpful or for his auditory hallucinations. Throughout the course of the hospital stay the patient's mood improved as well as his ability to function and cope with stressors. He did have agitation and had difficulty dealing with stress but was starting to cope better. At the time of discharge he denied auditory or visual hallucinations. Patient's guardian was involved in his care and agreeable to all medication adjustments. Patient was agreeable as well as guardian was agreeable to getting IM and Invega to help prevent issues with noncompliance. Patient was given an additional shot of Invega a prior to discharge. He is going to visit a friend in [place] and then follow-up with his psychiatrist in one month. He also has therapy appointment set up. Attempted to educate the patient on the importance of taking his medications as prescribed as well as getting appropriate sleep and avoiding substance use. Patient verbalized understanding of this and is willing to continue treatment as an outpatient. Guardian is also on board with this plan. He is discharged in stable condition. - Time Spent with Patient Total time spent providing and/or coordinating discharge services: Greater than 30 minutes Assessment and Plan - Patient/Caregiver Discharge Instructions Activity: resume usual activities as tolerated Diet: regular diet Additional Instructions: Invega Sustenna 234 mg given 07/06/2017. A prescription for Invega Sustenna 156mg has been sent to [facility]. Please leaf size picker this medication and take it to appointment with Dr. Morillo on 07/16/2017 at 11:00am so injection may be given. - Follow up Plan Follow up with: [facility] [Outside] - 08/01/17 3:00 pm (The above appointment is with Alma Ramos for outpatient mental health and substance abuse counseling services.) [facility] [Outside] - 08/02/17 11:00 am (The above appointment is with Dr. Morillo for outpatient psychiatric assessment and medication management services. Please arrive 15 minutes early to complete paperwork. *Please bring your filled Invega Sustenna with you so your injection can be given.* Please bring your insurance card, photo ID and medications in their original bottles. If you do not have insurance, bring proof of income to apply for the sliding fee scale. If you are unable to keep this appointment, 24 hour business notice of cancellation is expected. The above appointment(s) reflects first availability. You may contact the office regularly to check for cancellations that may allow you to be seen sooner.) Functional capacity at discharge: independent ambulation Overall status at discharge: Stable Disposition: Home, Self-Care Quality - Multiple Antipsychotics Patient discharged on 2 or more antipsychotic medications: No Procedures - Procedures Procedures: Medication Management, Crisis Stabilization, Supportive Therapy, Group Therapy, Psychoeducational Therapy
[2017-07-06 09:53] VITALS: BP 105/70
== END 2017-07-06 10:33 | disposition home or self-care (01) | DRG 750 ==
LOC: EMEROO 19:45 → 1ANU 06-22 11:11 → SUATTDRO 06-22 11:11 → 1ANU 06-22 12:00
PROVIDERS: ADMIT Psychiatry & Neurology Forensic Psychiatry; ATTEND Student in an Organized Health Care Education/Training Program

== ENCOUNTER 2017-12-15 03:59 | Inpatient (IN) ==
[2017-12-15] MEDS ORDERED: *HR* LORazepam 2 MG/ML VIAL IM PRN (05:46)
[2017-12-15] MEDS ORDERED: MOM Conc 10 ML UD.LIQ PO PRN (05:46)
[2017-12-15] MEDS ORDERED: Mag Hydrox/Al Hydrox/Simeth 30 ML UDC PO PRN (05:46)
[2017-12-15] MEDS ORDERED: Ziprasidone injection 20 MG/ML VIAL IM PRN ×2 (05:59→10:09)
[2017-12-15] MEDS ORDERED: *HR* LORazepam 2 MG/ML VIAL IVP ONE (08:06)
--- NOTE | 2017-12-15 10:29 | Psychiatry History & Physical ---
Date of Encounter: 12/15/17 Time of Encounter: 10:00 History of Present Illness Patient Stated Chief Complaint: Paranoid delusions, suicidal ideation, homicidal ideation Medicare Admission Attestation: For traditional Medicare patients the provided hospital inpatient services are reasonable and necessary and in the case of services not specified as inpatient -only under 42 CFR 419.22 (n), that they are appropriately provided as inpatient services in accordance 42 CFR 412.3. For [facility] the patient may reasonably be expected to be discharged or transferred to a hospital within 96 hours after admission to the Critical [facility]. Admitted From: Emergency Dept History of Present Illness: Mr. Oates is a 42 year old male admitted from the emergency department for paranoid delusions, suicidal and homicidal ideation. Patient reported he was afraid of using drugs and be around people who are using drugs. He wanted to be in a safe place and even the nuthouse. UDS was positive for THC and amphetamine and patient admitted to recent use. Patient has a long history of psychiatric treatment for schizophrenia and substance abuse. He has been in drug treatment several times most recent 2 years ago. Longest sobriety was 30 days. Patient is noncompliant with medication or follow-up appointments. He was seen most recently in August at [facility] for drug counseling and medication management. Prior to admission patient was not taking any medication. He was supposed to be on invega Sustaina and his last injection was in August. Records from last admission in July 2017 were reviewed. Patient endorsed suicidal ideation, homicidal ideation but did not specify any specific person, he also reported feeling paranoid and believe people are talking about him. He reported poor sleep and appetite, irritability and anxiety. Past Med Surg Social Fam HX - Past Medical History Medical history: asthma, hepatitis - Past Psychiatric History Psychiatric history: Reports: schizophrenia, previous psychiatric hospitalization Past psychiatric history details: Hospitalization at [facility] in 2015, [facility] August 2015, 1A July 2017 - Social History Smoking Status: Current every day smoker Smokeless Tobacco Status: Yes Alcohol use: none Drug use: marijuana, methamphetamine, other Medications & Allergies Paliperidone Palmitate [Invega Sustenna] 156 mg IM Q4W #1 mls 07/05/17 [Rx] Paliperidone [Invega] 9 mg PO DAILY 30 Days #30 [id number] 07/06/17 [Rx] hydrOXYzine pamoate [HydrOXYzine Pamoate] 50 mg PO TID #90 capsule 07/06/17 [Rx] traZODone [TraZODone] 200 mg PO HS PRN #120 tablet 07/06/17 [Rx] 3 Allergy/AdvReac Type Severity Reaction Status Date / Time haloperidol [From Haldol] Allergy See Verified 11/03/15 19:16 Comments Review of Systems Psychiatric: Reports: depression, anxiety, abnormal sleep pattern, suicidal ideation, change in appetite, homicidal ideation, irritability, other (Paranoid delusion) Exam - HEENT Head exam IM: Present: atraumatic Eye exam IM: Present: EOMI, normal appearance, PERRL ENT exam IM: Present: normal exam - Neurological Neurological exam: Present: CN II-XII intact - Respiratory Respiratory exam IM: Present: CTAB - GI/Abdominal GI/Abdominal exam IM: Present: normal bowel sounds, soft. Absent: tenderness - Extremities Extremities exam IM: Present: full ROM - Skin Skin exam IM: Present: dry, warm - Constitutional Vitals: Temp Pulse Resp BP 98.4 F 56 16 128/51 12/15/17 04:00 12/15/17 04:00 12/15/17 04:00 12/15/17 04:00 General appearance: age & developmentally appropriate, well-groomed, well- nourished - Musculoskeletal Gait: normal Station: relaxed Strength & Tone: normal for patient - Psychiatric Patient Orientation: Yes Person, Yes Time, Yes Place Level of alertness: Alert Behavior: calm, cooperative, anxious, guarded Psychomotor activity: Normal Eye Contact: No Eye Contact Mood Description: Depressed, Labile, Irritable Affect description: labile, constricted, dysphoric Speech Volume: Normal Speech pattern: normal rate, normal rhythm, normal tone, fluent, spontaneous, appropriate, limited Language & Vocabulary: consistent with education Thought Process: Linear, Goal Oriented Thought Content: Yes Suicidal ideation, Yes Homicidal ideation, Yes Paranoid delusion Perceptual Disturbances: No Auditory hallucinations, No Visual hallucinations Attention Span Ability: Capable of Focused Attention Memory Description: Grossly Intact Patient Reliability: Questionable Historian Fund of knowledge: Yes abstraction ability, Yes average, Yes aware of current events Intelligence Estimate: Average Judgment: Limited Insight: Partial Assessment and Plan (1) Acute exacerbation of chronic paranoid schizophrenia Current visit: No Status: Acute Plan: Admit inpatient for safety and stabilization, Close observation, Suicide Precautions per unit protocol, Encourage participation in unit milieu, Group Therapy, Monitor sleep, Monitor appetite Additional Plan: We will restart medication in [place] injection 156 mg IM Risks, benefits, side effects, alternatives discussed w/pt: Yes Patient agreeable to treatment: Yes Estimated Length of Stay (Days): 5 (2) Polysubstance abuse Current visit: Yes Status: Acute Plan: Admit inpatient for safety and stabilization, Close observation, Suicide Precautions per unit protocol, Encourage participation in unit milieu, Group Therapy, Monitor sleep, Monitor appetite Risks, benefits, side effects, alternatives discussed w/pt: Yes Patient agreeable to treatment: Yes
[2017-12-15] MEDS ORDERED: (Paliperidone Palmitate [Invega Sustenna] 156 MG) IM SCH (11:00)
[2017-12-15] MEDS: Nicotine 21 MG PATCH.TD24 TD SCH (15:26)
[2017-12-16] MEDS: Nicotine 21 MG PATCH.TD24 TD SCH (08:45)
--- NOTE | 2017-12-16 12:39 | Psychiatry Progress Note ---
Date of Encounter: 12/16/17 Time of Encounter: 11:30 Subjective Interval history: Patient seen for follow-up. Case discussed was nursing staff. Staff report patient had couple episodes of agitation yesterday and he needed when necessary medication to calm him down, he was angry and labile. Patient took his oral medication but the injection is not available at the pharmacy at this time. He reported adequate sleep and appetite. He denied any suicidal or homicidal ideation. She shared with me the circumstances of the admission and he is still interested in drug rehabilitation program. He was agreeable to get started on his medication when available. Review of Systems Psychiatric: Reports: depression, anxiety, abnormal sleep pattern, suicidal ideation, change in appetite, homicidal ideation, irritability, other (Paranoid delusion) Results - Vital Signs Vital Signs: Temp Pulse Resp BP 97.2 F L 81 16 113/72 12/16/17 09:00 12/16/17 09:00 12/16/17 09:00 12/16/17 09:00 Assessment and Plan (1) Acute exacerbation of chronic paranoid schizophrenia Current visit: No Status: Acute Plan: Continue hospitalization, Close observation, Suicide Precautions per unit protocol, Encourage participation in unit milieu, Group Therapy, Monitor sleep, Monitor appetite Risks, benefits, side effects, alternatives discussed w/pt: Yes Patient agreeable to treatment: Yes (2) Polysubstance abuse Current visit: Yes Status: Acute Plan: Continue hospitalization, Close observation, Suicide Precautions per unit protocol, Encourage participation in unit milieu, Group Therapy, Monitor sleep, Monitor appetite Risks, benefits, side effects, alternatives discussed w/pt: Yes Patient agreeable to treatment: Yes Consult Discharge Plan - Plan Referrals: NONE,PCP [Primary Care Provider] - Psychiatry Exam - Constitutional Vitals: Temp Pulse Resp BP 97.2 F L 81 16 113/72 12/16/17 09:00 12/16/17 09:00 12/16/17 09:00 12/16/17 09:00 General appearance: age & developmentally appropriate, well-groomed, well- nourished - Musculoskeletal Gait: normal Station: relaxed Strength & Tone: normal for patient - Psychiatric Patient Orientation: Yes Person, Yes Time, Yes Place Level of alertness: Alert Behavior: calm, cooperative, guarded Psychomotor activity: Normal Eye Contact: Minimal Contact Mood Description: Euthymic/stable Affect description: congruent with mood, full range Speech Volume: Normal Speech pattern: normal rate, normal rhythm, normal tone, fluent, spontaneous Language & Vocabulary: consistent with education Thought Process: Linear, Goal Oriented Thought Content: No Suicidal ideation, No Homicidal ideation, No Overt delusions Perceptual Disturbances: No Auditory hallucinations, No Visual hallucinations Attention Span Ability: Capable of Focused Attention Memory Description: Grossly Intact Patient Reliability: Reliable Historian Fund of knowledge: Yes abstraction ability, Yes aware of current events Intelligence Estimate: Average Judgment: Limited Insight: Partial
[2017-12-16] MEDS: Ziprasidone 20 MG CAPSULE PO PRN (19:43)
[2017-12-16] MEDS: *HR* LORazepam 1 MG TABLET PO PRN (19:43)
[2017-12-17] MEDS: Nicotine 21 MG PATCH.TD24 TD SCH (09:45)
--- NOTE | 2017-12-17 13:51 | Psychiatry Progress Note ---
Date of Encounter: 12/17/17 Time of Encounter: 13:00 Subjective Interval history: Patient seen for follow-up case discussed with treatment team. Staff report patient is self isolating, not attending groups, initially agitated and irritable. Continued to endorse suicidal and homicidal ideation. Medication compliant. Continued to show interest in drug rehabilitation. Affect is blunt and guarded. Review of Systems Psychiatric: Reports: depression, anxiety, abnormal sleep pattern, suicidal ideation, change in appetite, homicidal ideation, irritability, other (Paranoid delusion) Results - Vital Signs Vital Signs: Temp Pulse Resp BP 98.6 F 121 16 111/80 12/17/17 09:00 12/17/17 09:00 12/17/17 09:00 12/17/17 09:00 Assessment and Plan (1) Acute exacerbation of chronic paranoid schizophrenia Current visit: No Status: Acute Plan: Continue hospitalization, Close observation, Suicide Precautions per unit protocol, Encourage participation in unit milieu, Group Therapy, Monitor sleep, Monitor appetite Risks, benefits, side effects, alternatives discussed w/pt: Yes Patient agreeable to treatment: Yes (2) Polysubstance abuse Current visit: Yes Status: Acute Plan: Continue hospitalization, Close observation, Suicide Precautions per unit protocol, Encourage participation in unit milieu, Group Therapy, Monitor sleep, Monitor appetite Risks, benefits, side effects, alternatives discussed w/pt: Yes Patient agreeable to treatment: Yes Consult Discharge Plan - Plan Referrals: NONE,PCP [Primary Care Provider] - Psychiatry Exam - Constitutional Vitals: Temp Pulse Resp BP 98.6 F 121 16 111/80 12/17/17 09:00 12/17/17 09:00 12/17/17 09:00 12/17/17 09:00 General appearance: age & developmentally appropriate, well-nourished, disheveled, average - Musculoskeletal Gait: normal Station: relaxed Strength & Tone: normal for patient - Psychiatric Patient Orientation: Yes Person, Yes Time, Yes Place Level of alertness: Alert Behavior: calm, cooperative Psychomotor activity: Normal Eye Contact: Minimal Contact Mood Description: Euthymic/stable, Depressed, Irritable Affect description: congruent with mood, constricted Speech Volume: Normal Speech pattern: normal rate, normal rhythm, normal tone, fluent, spontaneous Language & Vocabulary: consistent with education Thought Process: Linear, Goal Oriented Thought Content: Yes Suicidal ideation, Yes Homicidal ideation, No Overt delusions Perceptual Disturbances: No Auditory hallucinations, No Visual hallucinations Attention Span Ability: Capable of Focused Attention Memory Description: Grossly Intact Patient Reliability: Reliable Historian Fund of knowledge: Yes abstraction ability, Yes aware of current events Intelligence Estimate: Average Judgment: Limited Insight: Partial
[2017-12-17] MEDS ORDERED: (Paliperidone Palmitate [Invega Sustenna] 156 MG) IM SCH (15:30)
[2017-12-17] MEDS: Ziprasidone 20 MG CAPSULE PO PRN (16:41)
[2017-12-17] MEDS: *HR* LORazepam 1 MG TABLET PO PRN (17:08)
[2017-12-18] MEDS: Nicotine 21 MG PATCH.TD24 TD SCH (09:04)
--- NOTE | 2017-12-18 13:05 | Psychiatry Progress Note ---
Date of Encounter: 12/18/17 Time of Encounter: 13:03 Subjective Interval history: Patient seen for follow-up. Case discussed with treatment team. Staff report patient is self isolating in his room, irritable at times, not agitated. Reports feeling paranoid people are talking about him. He had his injection yesterday, was tolerated. Denies suicidal and homicidal ideation. Review of Systems Psychiatric: Reports: depression, anxiety, abnormal sleep pattern, suicidal ideation, change in appetite, homicidal ideation, irritability, other (Paranoid delusion) Results - Vital Signs Vital Signs: Temp Pulse Resp BP 98.3 F 127 20 94/71 12/18/17 09:00 12/18/17 09:00 12/18/17 09:00 12/18/17 09:00 Assessment and Plan (1) Acute exacerbation of chronic paranoid schizophrenia Current visit: No Status: Acute Plan: Continue hospitalization, Close observation, Suicide Precautions per unit protocol, Encourage participation in unit milieu, Group Therapy, Monitor sleep, Monitor appetite Risks, benefits, side effects, alternatives discussed w/pt: Yes Patient agreeable to treatment: Yes (2) Polysubstance abuse Current visit: Yes Status: Acute Plan: Continue hospitalization, Close observation, Suicide Precautions per unit protocol, Encourage participation in unit milieu, Group Therapy, Monitor sleep, Monitor appetite Risks, benefits, side effects, alternatives discussed w/pt: Yes Patient agreeable to treatment: Yes Consult Discharge Plan - Plan Referrals: NONE,PCP [Primary Care Provider] - Psychiatry Exam - Constitutional Vitals: Temp Pulse Resp BP 98.3 F 127 20 94/71 12/18/17 09:00 12/18/17 09:00 12/18/17 09:00 12/18/17 09:00 General appearance: age & developmentally appropriate, well-nourished, disheveled, average - Musculoskeletal Gait: normal Station: relaxed Strength & Tone: normal for patient - Psychiatric Patient Orientation: Yes Person, Yes Time, Yes Place Level of alertness: Alert Behavior: calm, cooperative, anxious, guarded, suspicious Psychomotor activity: Normal Eye Contact: Minimal Contact Mood Description: Euthymic/stable, Anxious, Irritable Affect description: congruent with mood, dysphoric Speech Volume: Normal Speech pattern: normal rate, normal rhythm, normal tone, fluent, spontaneous Language & Vocabulary: consistent with education Thought Process: Linear, Goal Oriented Thought Content: No Suicidal ideation, No Homicidal ideation, No Overt delusions Perceptual Disturbances: No Auditory hallucinations, No Visual hallucinations Attention Span Ability: Capable of Focused Attention Memory Description: Grossly Intact Patient Reliability: Reliable Historian Fund of knowledge: Yes abstraction ability, Yes aware of current events Intelligence Estimate: Average Judgment: Limited Insight: Partial
[2017-12-18] MEDS: *HR* LORazepam 1 MG TABLET PO PRN (13:53)
[2017-12-18] MEDS: Ziprasidone 20 MG CAPSULE PO PRN (13:53)
[2017-12-18] MEDS: hydrOXYzine pamoate 25 MG CAPSULE PO PRN (20:40)
[2017-12-18] MEDS: traZODone 50 MG TABLET PO PRN (20:40)
[2017-12-19] MEDS: Nicotine 21 MG PATCH.TD24 TD SCH (08:17)
[2017-12-19] MEDS: Ziprasidone 20 MG CAPSULE PO PRN (12:23)
[2017-12-19] MEDS: hydrOXYzine pamoate 25 MG CAPSULE PO PRN (12:23)
--- NOTE | 2017-12-19 14:11 | Psychiatry Progress Note ---
Date of Encounter: 12/19/17 Time of Encounter: 14:09 Subjective Interval history: Patient seen for follow-up. Case discussed with treatment team. Patient continued to report paranoia and auditory hallucinations, he is asking for more medication. pattern layout worker is trying to place patient with great difficulty. Not many options available for the patient. Patient self isolated and sleep most of the time, other times his anxious and irritable. No agitation. Review of Systems Psychiatric: Reports: depression, anxiety, abnormal sleep pattern, suicidal ideation, change in appetite, homicidal ideation, irritability, other (Paranoid delusion) Results - Vital Signs Vital Signs: Temp Pulse Resp BP 97.8 F 99 16 104/82 12/19/17 09:00 12/19/17 09:00 12/19/17 09:00 12/19/17 09:00 Assessment and Plan (1) Acute exacerbation of chronic paranoid schizophrenia Current visit: No Status: Acute Plan: Continue hospitalization, Close observation, Suicide Precautions per unit protocol, Encourage participation in unit milieu, Group Therapy, Monitor sleep, Monitor appetite Additional Plan: We will add Seroquel 200 mg at bedtime Risks, benefits, side effects, alternatives discussed w/pt: Yes Patient agreeable to treatment: Yes (2) Polysubstance abuse Current visit: Yes Status: Acute Plan: Continue hospitalization, Close observation, Suicide Precautions per unit protocol, Encourage participation in unit milieu, Group Therapy, Monitor sleep, Monitor appetite Risks, benefits, side effects, alternatives discussed w/pt: Yes Patient agreeable to treatment: Yes Consult Discharge Plan - Plan Referrals: NONE,PCP [Primary Care Provider] - Psychiatry Exam - Constitutional Vitals: Temp Pulse Resp BP 97.8 F 99 16 104/82 12/19/17 09:00 12/19/17 09:00 12/19/17 09:00 12/19/17 09:00 General appearance: age & developmentally appropriate, well-nourished, unkempt, disheveled, average - Musculoskeletal Gait: normal Station: relaxed Strength & Tone: normal for patient - Psychiatric Patient Orientation: Yes Person, Yes Time, Yes Place Level of alertness: Alert Behavior: calm, cooperative, restless, distractible Psychomotor activity: Increased Eye Contact: Fleeting Contact Mood Description: Euthymic/stable, Anxious, Labile, Irritable Affect description: congruent with mood, labile, dysphoric Speech Volume: Normal Speech pattern: normal rate, normal rhythm, normal tone, fluent, spontaneous Language & Vocabulary: consistent with education Thought Process: Linear, Goal Oriented Thought Content: No Suicidal ideation, No Homicidal ideation, No Overt delusions , Yes Ideas of reference, Yes Paranoid delusion Perceptual Disturbances: Yes Auditory hallucinations, No Visual hallucinations Attention Span Ability: Unable to Focus Memory Description: Grossly Intact Patient Reliability: Reliable Historian Fund of knowledge: Yes abstraction ability, Yes aware of current events Intelligence Estimate: Average Judgment: Limited Insight: Partial
[2017-12-19] MEDS: *HR* LORazepam 1 MG TABLET PO PRN (15:22)
[2017-12-19] MEDS: traZODone 50 MG TABLET PO PRN (21:36)
[2017-12-20] MEDS: Nicotine 21 MG PATCH.TD24 TD SCH (09:30)
--- NOTE | 2017-12-20 15:46 | Psychiatry Progress Note ---
Date of Encounter: 12/20/17 Time of Encounter: 15:00 Subjective Interval history: Patient seen for follow-up. Case discussed with treatment team. Staff report patient is showing improvement less paranoid, more interactive and denies auditory hallucinations he feel more energy and denies any suicidal ideation. Review of Systems Psychiatric: Reports: depression, anxiety, abnormal sleep pattern, suicidal ideation, change in appetite, homicidal ideation, irritability, other (Paranoid delusion) Results - Vital Signs Vital Signs: Temp Pulse Resp BP 98.3 F 114 20 97/68 12/20/17 09:00 12/20/17 09:00 12/20/17 09:00 12/20/17 09:00 Assessment and Plan (1) Acute exacerbation of chronic paranoid schizophrenia Current visit: No Status: Acute Plan: Continue hospitalization, Close observation, Suicide Precautions per unit protocol, Encourage participation in unit milieu, Group Therapy, Monitor sleep, Monitor appetite Risks, benefits, side effects, alternatives discussed w/pt: Yes Patient agreeable to treatment: Yes (2) Polysubstance abuse Current visit: Yes Status: Acute Plan: Continue hospitalization, Close observation, Suicide Precautions per unit protocol, Encourage participation in unit milieu, Group Therapy, Monitor sleep, Monitor appetite Risks, benefits, side effects, alternatives discussed w/pt: Yes Patient agreeable to treatment: Yes Consult Discharge Plan - Plan Referrals: NONE,PCP [Primary Care Provider] - Psychiatry Exam - Constitutional Vitals: Temp Pulse Resp BP 98.3 F 114 20 97/68 12/20/17 09:00 12/20/17 09:00 12/20/17 09:00 12/20/17 09:00 General appearance: age & developmentally appropriate, well-groomed, well- nourished - Musculoskeletal Gait: normal Station: relaxed Strength & Tone: normal for patient - Psychiatric Patient Orientation: Yes Person, Yes Time, Yes Place Level of alertness: Alert Behavior: calm, cooperative Psychomotor activity: Normal Eye Contact: Maintains Eye Contact Mood Description: Euthymic/stable Affect description: congruent with mood, full range Speech Volume: Normal Speech pattern: normal rate, normal rhythm, normal tone, fluent, spontaneous, disorganized Language & Vocabulary: consistent with education Thought Process: Linear, Goal Oriented, Tangential, Disorganized Thought Content: No Suicidal ideation, No Homicidal ideation, No Overt delusions , Yes Paranoid delusion, Yes Obsessive thoughts Perceptual Disturbances: No Auditory hallucinations, No Visual hallucinations Attention Span Ability: Capable of Focused Attention Memory Description: Grossly Intact Patient Reliability: Reliable Historian Fund of knowledge: Yes abstraction ability, Yes aware of current events Intelligence Estimate: Average Judgment: Limited Insight: Partial
[2017-12-20] MEDS: Ibuprofen 400 MG TABLET PO PRN (18:08)
[2017-12-20] MEDS: traZODone 50 MG TABLET PO PRN (20:17)
[2017-12-20] MEDS: hydrOXYzine pamoate 25 MG CAPSULE PO PRN (20:17)
[2017-12-21] MEDS: Nicotine 21 MG PATCH.TD24 TD SCH (10:28)
[2017-12-21] MEDS: Ibuprofen 400 MG TABLET PO PRN (12:55)
[2017-12-21] MEDS: Ziprasidone 20 MG CAPSULE PO PRN (14:06)
[2017-12-21] MEDS: *HR* LORazepam 1 MG TABLET PO PRN (14:06)
--- NOTE | 2017-12-21 14:07 | Psychiatry Progress Note ---
Date of Encounter: 12/21/17 Time of Encounter: 14:04 Subjective Interval history: Patient seen for follow-up. Case discussed with treatment team. Patient reports feeling good, denied feeling depressed, denies voices, not paranoid. He is interacting appropriately with his peers and staff. Denies any side effects from medication. However he is concerned about restrictions on medication at the rehabilitation facility where he plans to go. I assured him that I would review medication and make changes. He is motivated to go to rehabilitation. Review of Systems Psychiatric: Reports: depression, anxiety, abnormal sleep pattern, suicidal ideation, change in appetite, homicidal ideation, irritability, other (Paranoid delusion) Results - Vital Signs Vital Signs: Temp Pulse Resp BP 98.1 F 94 18 102/68 12/21/17 08:36 12/21/17 08:36 12/21/17 08:36 12/21/17 08:36 Assessment and Plan (1) Acute exacerbation of chronic paranoid schizophrenia Current visit: No Status: Acute Plan: Continue hospitalization, Close observation, Suicide Precautions per unit protocol, Encourage participation in unit milieu, Group Therapy, Monitor sleep, Monitor appetite Risks, benefits, side effects, alternatives discussed w/pt: Yes Patient agreeable to treatment: Yes (2) Polysubstance abuse Current visit: Yes Status: Acute Plan: Continue hospitalization, Close observation, Suicide Precautions per unit protocol, Encourage participation in unit milieu, Group Therapy, Monitor sleep, Monitor appetite Risks, benefits, side effects, alternatives discussed w/pt: Yes Patient agreeable to treatment: Yes Consult Discharge Plan - Plan Referrals: NONE,PCP [Primary Care Provider] - Psychiatry Exam - Constitutional Vitals: Temp Pulse Resp BP 98.1 F 94 18 102/68 12/21/17 08:36 12/21/17 08:36 12/21/17 08:36 12/21/17 08:36 General appearance: age & developmentally appropriate, well-groomed, well- nourished, average - Musculoskeletal Gait: normal Station: relaxed Strength & Tone: normal for patient - Psychiatric Patient Orientation: Yes Person, Yes Time, Yes Place Level of alertness: Alert Behavior: calm, cooperative Psychomotor activity: Normal Eye Contact: Maintains Eye Contact Mood Description: Euthymic/stable, Anxious Affect description: congruent with mood, full range, labile Speech Volume: Normal Speech pattern: normal rate, normal rhythm, normal tone, fluent, spontaneous Language & Vocabulary: consistent with education Thought Process: Linear, Goal Oriented Thought Content: No Suicidal ideation, No Homicidal ideation, No Overt delusions , No Paranoid delusion Perceptual Disturbances: No Auditory hallucinations, No Visual hallucinations Attention Span Ability: Capable of Focused Attention Memory Description: Grossly Intact Patient Reliability: Reliable Historian Fund of knowledge: Yes abstraction ability, Yes aware of current events Intelligence Estimate: Average Judgment: Limited Insight: Partial
[2017-12-21] MEDS ORDERED: OLANZapine 10 MG VIAL IM PRN (14:19)
[2017-12-21] MEDS: hydrOXYzine pamoate 25 MG CAPSULE PO PRN (20:23)
[2017-12-21] MEDS: traZODone 50 MG TABLET PO PRN (20:24)
[2017-12-22] MEDS: Nicotine 21 MG PATCH.TD24 TD SCH (09:46)
--- NOTE | 2017-12-22 09:55 | Psychiatry Progress Note ---
Date of Encounter: 12/22/17 Time of Encounter: 09:45 Subjective Interval history: Client states he is waiting on a rehab bed. Claims he lied about symptoms to get admitted because he was living in a dope house and using drugs daily. Has a long history of mario, psychosis AOD use and antisocial personality. On the unit he has been requesting multiple prns and stealing snacks. Seems pretty organized today but taking multiple meds. Can be destructive when off meds and unstable. Client is currently taking Seroquel at night which he reports he will not be able to continue once he gets to a rehab bed. Wants to stop it now. Will decrease dose tonight and stop it tomorrow if he is still doing ok. Already covered by [facility]. Review of Systems Constitutional: Denies: fever, chills, weakness, weight change Eyes: Denies: eye pain, vision change Ears, Nose, Throat: Denies: ear pain, throat pain, dental pain, hearing loss, congestion Cardiovascular: Denies: chest pain, palpitations, dyspnea on exertion Respiratory: Denies: cough, dyspnea, wheezes Gastrointestinal: Denies: abdominal pain, nausea, vomiting, diarrhea, constipation Musculoskeletal: Denies: joint swelling, joint pain Neurological: Denies: headache, weakness, numbness, memory loss Psychiatric: Reports: depression, anxiety, abnormal sleep pattern, suicidal ideation, change in appetite, homicidal ideation, irritability, other (Paranoid delusion) Results - Vital Signs Vital Signs: Temp Pulse Resp BP 98.9 F 93 16 110/76 12/21/17 21:00 12/21/17 21:00 12/21/17 21:00 12/21/17 21:00 Assessment and Plan (1) Acute exacerbation of chronic paranoid schizophrenia Current visit: No Status: Acute Plan: Continue hospitalization, Close observation, Suicide Precautions per unit protocol, Encourage participation in unit milieu, Group Therapy, Monitor sleep, Monitor appetite Risks, benefits, side effects, alternatives discussed w/pt: Yes Patient agreeable to treatment: Yes (2) Polysubstance abuse Current visit: Yes Status: Acute Plan: Continue hospitalization, Close observation, Suicide Precautions per unit protocol, Encourage participation in unit milieu, Group Therapy, Monitor sleep, Monitor appetite Risks, benefits, side effects, alternatives discussed w/pt: Yes Patient agreeable to treatment: Yes Consult Discharge Plan - Plan Referrals: NONE,PCP [Primary Care Provider] - Psychiatry Exam - Constitutional Vitals: Temp Pulse Resp BP 98.9 F 93 16 110/76 12/21/17 21:00 12/21/17 21:00 12/21/17 21:00 12/21/17 21:00 General appearance: age & developmentally appropriate - Musculoskeletal Gait: normal Station: relaxed Strength & Tone: normal for patient - Psychiatric Patient Orientation: Yes Person, Yes Time, Yes Place Level of alertness: Alert Behavior: calm, cooperative Psychomotor activity: Normal Eye Contact: Minimal Contact Mood Description: Euthymic/stable Affect description: congruent with mood Speech Volume: Normal Speech pattern: normal rate, normal rhythm, normal tone, fluent, spontaneous Language & Vocabulary: consistent with education Thought Process: Linear Thought Content: No Suicidal ideation, No Homicidal ideation, No Overt delusions Perceptual Disturbances: No Auditory hallucinations, No Visual hallucinations Attention Span Ability: Capable of Focused Attention Memory Description: Grossly Intact Patient Reliability: Questionable Historian Intelligence Estimate: Below Average Judgment: Limited Insight: Minimal
[2017-12-22] MEDS: Ibuprofen 400 MG TABLET PO PRN (13:08)
[2017-12-22] MEDS: traZODone 50 MG TABLET PO PRN (21:00)
--- NOTE | 2017-12-23 08:11 | Psychiatry Progress Note ---
Date of Encounter: 12/23/17 Time of Encounter: 08:08 Subjective Interval history: Client states he had a good night. Had a little trouble falling asleep with the reduced dose of Seroquel but states once he fell asleep he was fine. Still wants it discontinued since he will not be able to continue it in rehab and his plan is to go straight to a rehab bed this week. No evidence of psychosis today. Mood stable. Should be covered by [facility] so will stop Seroquel today. Review of Systems Constitutional: Denies: fever, chills, weakness, weight change Eyes: Denies: eye pain, vision change Ears, Nose, Throat: Denies: ear pain, throat pain, dental pain, hearing loss, congestion Cardiovascular: Denies: chest pain, palpitations, dyspnea on exertion Respiratory: Denies: cough, dyspnea, wheezes Gastrointestinal: Denies: abdominal pain, nausea, vomiting, diarrhea, constipation Musculoskeletal: Denies: joint swelling, joint pain Neurological: Denies: headache, weakness, numbness, memory loss Psychiatric: Reports: depression, anxiety, abnormal sleep pattern, suicidal ideation, change in appetite, homicidal ideation, irritability, other (Paranoid delusion) Results - Vital Signs Vital Signs: Temp Pulse Resp BP 97.3 F L 85 16 95/63 12/22/17 20:11 12/22/17 20:11 12/22/17 20:11 12/22/17 20:11 Assessment and Plan (1) Acute exacerbation of chronic paranoid schizophrenia Current visit: No Status: Resolved Plan: Continue hospitalization, Close observation, Suicide Precautions per unit protocol, Encourage participation in unit milieu, Group Therapy, Monitor sleep, Monitor appetite Risks, benefits, side effects, alternatives discussed w/pt: Yes Patient agreeable to treatment: Yes (2) Polysubstance abuse Current visit: Yes Status: Acute Plan: Continue hospitalization, Close observation, Suicide Precautions per unit protocol, Encourage participation in unit milieu, Group Therapy, Monitor sleep, Monitor appetite Risks, benefits, side effects, alternatives discussed w/pt: Yes Patient agreeable to treatment: Yes Consult Discharge Plan - Plan Referrals: NONE,PCP [Primary Care Provider] - Psychiatry Exam - Constitutional Vitals: Temp Pulse Resp BP 97.3 F L 85 16 95/63 12/22/17 20:11 12/22/17 20:11 12/22/17 20:11 12/22/17 20:11 General appearance: age & developmentally appropriate - Musculoskeletal Gait: normal Station: relaxed Strength & Tone: normal for patient - Psychiatric Patient Orientation: Yes Person, Yes Time, Yes Place Level of alertness: Alert Behavior: calm, cooperative Psychomotor activity: Normal Eye Contact: Maintains Eye Contact Mood Description: Euthymic/stable Affect description: congruent with mood, full range Speech Volume: Normal Speech pattern: normal rate, normal rhythm, normal tone, fluent, spontaneous Language & Vocabulary: consistent with education Thought Process: Linear, Goal Oriented Thought Content: No Suicidal ideation, No Homicidal ideation, No Overt delusions Perceptual Disturbances: No Auditory hallucinations, No Visual hallucinations Attention Span Ability: Capable of Focused Attention Memory Description: Grossly Intact Patient Reliability: Reliable Historian Fund of knowledge: Yes abstraction ability, Yes aware of current events Intelligence Estimate: Average Judgment: Limited Insight: Partial
[2017-12-23] MEDS: Nicotine 21 MG PATCH.TD24 TD SCH (09:28)
[2017-12-23] MEDS: Ibuprofen 400 MG TABLET PO PRN ×2 (11:34→20:41)
[2017-12-23] MEDS: hydrOXYzine pamoate 25 MG CAPSULE PO PRN ×2 (13:04→20:41)
[2017-12-23] MEDS: OLANZapine 10 MG TAB.RAPDIS PO PRN (14:02)
[2017-12-23] MEDS: traZODone 50 MG TABLET PO PRN (20:41)
[2017-12-23] MEDS ORDERED: traZODone 50 MG TABLET PO ONE (23:57)
[2017-12-24] MEDS: Nicotine 21 MG PATCH.TD24 TD SCH (10:08)
[2017-12-24] MEDS: Ibuprofen 400 MG TABLET PO PRN ×2 (10:19→20:11)
--- NOTE | 2017-12-24 11:32 | Psychiatry Progress Note ---
Date of Encounter: 12/24/17 Time of Encounter: 10:40 Subjective Interval history: Patient seen today , chart reviewed , patient was seen during his last admission , he relapsed and this time wants to go to rehab. his seroquel was dc as not allowed in rehab and invega was given , he is responding well, denies psychosis at present , but still has sleep issues , was given extra dose of trazodone last night . states he gets very paranoid when on drugs , but i also get paranoid when i am sober , it has not bothered me much lately. Review of Systems Psychiatric: Reports: depression, anxiety, abnormal sleep pattern, suicidal ideation, change in appetite, homicidal ideation, irritability, other (Paranoid delusion) Results - Vital Signs Vital Signs: Temp Pulse Resp BP 97.8 F 76 18 110/58 12/24/17 09:00 12/24/17 09:00 12/24/17 09:00 12/24/17 09:00 Assessment and Plan (1) Acute exacerbation of chronic paranoid schizophrenia Current visit: No Status: Acute Plan: Continue hospitalization, Close observation, Suicide Precautions per unit protocol, Encourage participation in unit milieu, Group Therapy, Monitor sleep, Monitor appetite, Family/Supportive other meeting Risks, benefits, side effects, alternatives discussed w/pt: Yes Patient agreeable to treatment: Yes (2) Patient's noncompliance with other medical treatment and regimen Current visit: No Status: Acute Plan: Continue hospitalization, Close observation, Suicide Precautions per unit protocol Risks, benefits, side effects, alternatives discussed w/pt: Yes Patient agreeable to treatment: Yes (3) Polysubstance abuse Current visit: Yes Status: Acute Plan: Continue hospitalization, Close observation, Suicide Precautions per unit protocol, Encourage participation in unit milieu, Group Therapy, Monitor sleep, Monitor appetite Risks, benefits, side effects, alternatives discussed w/pt: Yes Patient agreeable to treatment: Yes Consult Discharge Plan - Plan Referrals: NONE,PCP [Primary Care Provider] - Psychiatry Exam - Constitutional Vitals: Temp Pulse Resp BP 97.8 F 76 18 110/58 12/24/17 09:00 12/24/17 09:00 12/24/17 09:00 12/24/17 09:00 General appearance: age & developmentally appropriate - Musculoskeletal Gait: normal Station: relaxed Strength & Tone: normal for patient - Psychiatric Patient Orientation: Yes Person, Yes Time, Yes Place Level of alertness: Alert Behavior: cooperative, restless Psychomotor activity: Normal Eye Contact: Maintains Eye Contact Mood Description: Anxious Affect description: congruent with mood Speech Volume: Normal Speech pattern: excessive Language & Vocabulary: consistent with education Thought Process: Circumstantial Thought Content: Yes Preoccupation Attention Span Ability: Unable to Sustain Attention Memory Description: Grossly Intact Patient Reliability: Reliable Historian Fund of knowledge: Yes average Intelligence Estimate: Average Judgment: Limited Insight: Partial
[2017-12-24] MEDS: OLANZapine 10 MG TAB.RAPDIS PO PRN (19:05)
[2017-12-24] MEDS: traZODone 50 MG TABLET PO PRN (20:11)
[2017-12-24] MEDS: hydrOXYzine pamoate 25 MG CAPSULE PO PRN (20:12)
[2017-12-25] MEDS: Nicotine 21 MG PATCH.TD24 TD SCH (09:17)
[2017-12-25] MEDS: Ibuprofen 400 MG TABLET PO PRN ×2 (11:21→18:28)
--- NOTE | 2017-12-25 11:49 | Psychiatry Progress Note ---
Date of Encounter: 12/25/17 Time of Encounter: 11:02 Subjective Interval history: Patient seen today , case d/w treatment team states i am ok , i am anxious , craving denies, moods anxious and i have taken medications for 2 nights as i was very anxious. he is anxious , psychosis improving , denies any a/v hallucinations , denies si/ hi. waiting for placement for inpatient rehab. this is his third hospitalization this year. continue stabilization and monitoring. Review of Systems Psychiatric: Reports: depression, anxiety, abnormal sleep pattern, suicidal ideation, change in appetite, homicidal ideation, irritability, other (Paranoid delusion) Results - Vital Signs Vital Signs: Temp Pulse Resp BP 98.5 F 64 16 107/66 12/25/17 09:00 12/25/17 09:00 12/25/17 09:00 12/25/17 09:00 Assessment and Plan (1) Acute exacerbation of chronic paranoid schizophrenia Current visit: No Status: Acute Risks, benefits, side effects, alternatives discussed w/pt: Yes Patient agreeable to treatment: Yes (2) Patient's noncompliance with other medical treatment and regimen Current visit: No Status: Acute Risks, benefits, side effects, alternatives discussed w/pt: Yes Patient agreeable to treatment: Yes (3) Polysubstance abuse Current visit: Yes Status: Acute Risks, benefits, side effects, alternatives discussed w/pt: Yes Patient agreeable to treatment: Yes Consult Discharge Plan - Plan Referrals: NONE,PCP [Primary Care Provider] - Psychiatry Exam - Constitutional Vitals: Temp Pulse Resp BP 98.5 F 64 16 107/66 12/25/17 09:00 12/25/17 09:00 12/25/17 09:00 12/25/17 09:00 General appearance: age & developmentally appropriate, well-groomed, well- nourished - Musculoskeletal Gait: normal Station: relaxed Strength & Tone: normal for patient - Psychiatric Patient Orientation: Yes Person, Yes Time, Yes Place Level of alertness: Alert Behavior: cooperative, nervous, anxious Psychomotor activity: Normal Eye Contact: Maintains Eye Contact Mood Description: Anxious Affect description: congruent with mood Speech Volume: Normal Speech pattern: clear, coherent Language & Vocabulary: consistent with education Thought Process: Intact Thought Content: Yes Preoccupation, Yes Guilt Perceptual Disturbances: No Auditory hallucinations, No Visual hallucinations Attention Span Ability: Capable of Focused Attention Memory Description: Grossly Intact Patient Reliability: Reliable Historian Fund of knowledge: Yes average Intelligence Estimate: Average Judgment: Fair Insight: Partial
[2017-12-25] MEDS: hydrOXYzine pamoate 25 MG CAPSULE PO PRN ×2 (11:57→20:31)
[2017-12-25] MEDS: OLANZapine 10 MG TAB.RAPDIS PO PRN ×3 (11:57→20:31)
[2017-12-25] MEDS: *HR* LORazepam 1 MG TABLET PO PRN (15:58)
[2017-12-25] MEDS: traZODone 50 MG TABLET PO PRN (20:31)
[2017-12-26 09:35] VITALS: BP 136/106
[2017-12-26] MEDS: Ibuprofen 400 MG TABLET PO PRN (09:44)
[2017-12-26] MEDS: Nicotine 21 MG PATCH.TD24 TD SCH (09:45)
--- NOTE | 2017-12-26 11:24 | Discharge Summary ---
Date of Encounter: 12/26/17 Time of Encounter: 10:50 Diagnosis - Discharge Diagnosis (1) Acute exacerbation of chronic paranoid schizophrenia Status: Acute Comments: patient educated about compliance , now on injectable monthly . he is not having any psychosis at discharge. (2) Patient's noncompliance with other medical treatment and regimen Status: Chronic (3) Polysubstance abuse Status: Acute Comments: patient educated , he is going to rehab inpatient and wants to be off drugs , has some support. Medications - Discharge Medications Prescriptions: Nicotine Patch [Nicoderm] 21 mg TD DAILY #7 patch.[id number] Paliperidone [Invega] 9 mg PO DAILY #30 tab.er.24 Paliperidone Palmitate [[facility]ga Sustenna] 156 mg IM Q4W #1 mls Nicotine Patch [Nicoderm] 21 mg TD DAILY #7 patch.td24 12/26/17 [Rx] Paliperidone Palmitate [Invega Sustenna] 156 mg IM Q4W #1 mls 12/26/17 [Rx] Paliperidone [Invega] 9 mg PO DAILY #30 tab.er.24 12/26/17 [Rx] 3 Allergy/AdvReac Type Severity Reaction Status Date / Time haloperidol [From Haldol] AdvReac See Verified 12/19/17 11:08 Comments Provider Date of admission: 12/15/17 03:59 Primary care physician: PCP NONE Psychiatry Exam - Constitutional Vitals: Temp Pulse Resp BP 98.5 F 91 18 136/106 12/26/17 09:00 12/26/17 09:00 12/26/17 09:00 12/26/17 09:00 General appearance: age & developmentally appropriate, well-groomed, well- nourished - Musculoskeletal Gait: normal Station: relaxed Strength & Tone: normal for patient - Psychiatric Patient Orientation: Yes Person, Yes Time, Yes Place Level of alertness: Alert Behavior: cooperative, anxious Psychomotor activity: Normal Eye Contact: Maintains Eye Contact Mood Description: Euthymic/stable, Anxious Affect description: congruent with mood Speech Volume: Normal Speech pattern: normal rate, normal rhythm, normal tone, fluent, spontaneous Language & Vocabulary: consistent with education Thought Process: Linear, Goal Oriented Thought Content: No Suicidal ideation, No Homicidal ideation, No Overt delusions Perceptual Disturbances: No Auditory hallucinations, No Visual hallucinations Attention Span Ability: Capable of Focused Attention Memory Description: Grossly Intact Patient Reliability: Reliable Historian Fund of knowledge: Yes abstraction ability, Yes aware of current events Intelligence Estimate: Average Judgment: Fair Insight: Partial Hospital Course Hospital course: Mr. Oates is a 42 year old male on admission admitted from the emergency department for paranoid delusions, suicidal and homicidal ideation. Patient reported he was afraid of using drugs and be around people who are using drugs. He wanted to be in a safe place and even the nuthouse. UDS was positive for THC and amphetamine and patient admitted to recent use. Patient has a long history of psychiatric treatment for schizophrenia and substance abuse. He has been in drug treatment several times most recent 2 years ago. Longest sobriety was 30 days. Patient is noncompliant with medication or follow-up appointments. He was seen most recently in August at [facility] for drug counseling and medication management. Prior to admission patient was not taking any medication. He was supposed to be on invega Sustaina and his last injection was in August. Records from last admission in July 2017 were reviewed. Patient endorsed suicidal ideation, homicidal ideation but did not specify any specific person, he also reported feeling paranoid and believe people are talking about him. He reported poor sleep and appetite, irritability and anxiety. HOSPITAL COURSE: Patient showed improvemnet once medications started , he has h/o non compliance and relapse , he was given supportive and structure enviornment and he attended unit milieu and gained insight , he was not suicidal and not homicidal , his psychosis improved , he is on injectable and oral invega , d/w him can dc oral once seen out patient psychiatrist,he denied any side effects, AIMS0. he is not depress/manic or psychotic at present. medically stable. will discharge him today and with follow up to inpatient rehab. Time spent discussing smoking cessation with patient: 3 to 10 minutes Does patient wish to continue nicotine replacement upon disc: No - Time Spent with Patient Total time spent providing and/or coordinating discharge services: Greater than 30 minutes Assessment and Plan - Patient/Caregiver Discharge Instructions Activity: resume usual activities as tolerated Diet: regular diet Additional Instructions: Invega Sustenna 156mg was given on 12/17/2017. Next dose is due on 01/14/2018. A prescription for the injection medication has been sent to [place] pharmacy with request they deliver it to [facility]. Patient may come to [facility] anytime during regular business hours on 01/14/2018 and injection will be given by nurse Frank. - Follow up Plan Follow up with: [facility] [Outside] - 01/01/18 4:00 pm (The above appointment is with Alma Ramos for outpatient substance abuse and mental health counseling services - You will also see Tiff Cabrera for outpatient psychiatric assessment and medication management services on 01/03/2018 at 11:35PM - You will also see the nurse, Frank, for your injection of Invega Sustenna 156mg on 01/14/2018 anytime during regular business hours) Overall status at discharge: Stable Disposition: Transfer Other Quality - Multiple Antipsychotics Patient discharged on 2 or more antipsychotic medications: No Procedures - Procedures Procedures: Medication Management, Crisis Stabilization, Supportive Therapy, Group Therapy, Psychoeducational Therapy
== END 2017-12-26 12:45 | disposition home or self-care (01) | DRG 750 ==
LOC: 1ANU 03:59 → SUATTDRO 03:59 → 1ANU 17:17
PROVIDERS: ADMIT Psychiatry & Neurology Forensic Psychiatry; ATTEND Psychiatry & Neurology Psychiatry

== ENCOUNTER 2020-06-05 09:15 | Observation (INO) ==
[2020-06-05] MEDS ORDERED: Ondansetron 4 MG/2 ML VIAL IVP ONE (10:09)
[2020-06-05 10:26] LABS: Hematocrit 48.1 % (37.5-50.1); Hemoglobin 15.7 g/dL (12.9-16.9); Mean Corpuscular HGB Conc 32.6 g/dL (31.6-35.5); Mean Corpuscular Hemoglobin 30.3 pg (28.0-33.3); Mean Corpuscular Volume 92.7 fL (83.0-100.0); Mean Platelet Volume 10.7 fL (9.4-12.4); Platelet Count 294 K/mcL (140-400); Red Blood Count 5.19 M/mcL (4.19-5.50); White Blood Count 13.4 K/mcL (4.3-11.1)
[2020-06-05 10:45] LABS: BUN/Creatinine Ratio 11 (6-26); Blood Urea Nitrogen 10 mg/dL (6-20); Calcium 9.4 mg/dL (8.6-10.3); Carbon Dioxide 27 mEq/L (23-29); Chloride 98 mEq/L (98-107); Glucose 118 mg/dL (70-105); Osmolality,Calculated 284 (280-300); Potassium 3.5 mEq/L (3.5-5.1); Sodium 137 mEq/L (136-145); eGFR For African Americans > 60 (> 60); eGFR For Non-African Americans > 60 (> 60)
[2020-06-05] MEDS ORDERED: Piperacillin/Tazobactam 3.375 GM in 0.9 % Sodium Chloride Mini Bag 100 ML IVPB ONE (11:04)
[2020-06-05] MEDS ORDERED: Acetaminophen 325 MG TABLET PO PRN (13:18)
[2020-06-05] MEDS ORDERED: Naloxone 0.4 MG/ML INJ IVP PRN (13:18)
[2020-06-05] MEDS ORDERED: Vancomycin 1,750 MG in 0.9 % Sodium Chloride 250 ML IVPB SCH (14:00)
[2020-06-05 16:16] LABS: ABG Base Excess -1 mEq/L (-2 to 3); ABG HCO3 28 mEq/L (21-27); ABG Oxygen Saturation 91 % (95-98); ABG PCO2 58 mmHg (35-45); ABG PH 7.28 pH Units (7.32-7.45); ABG PO2 69 mmHg (85-104); ABG TCO2 29 mEq/L (20-26)
[2020-06-05] MEDS: *HR* Heparin 5,000 UNIT/ML VIAL SQ SCH (18:07)
[2020-06-05] MEDS: 0.9 % Sodium Chloride 1,000 ML IVC SCH (18:08)
[2020-06-05] MEDS: Piperacillin/Tazobactam 3.375 GM in 0.9 % Sodium Chloride Mini Bag 100 ML IVPB SCH (20:35)
[2020-06-05] MEDS: Ondansetron 4 MG/2 ML VIAL IVP PRN (23:54)
[2020-06-06] MEDS ORDERED: Vancomycin 1,750 MG/517.5 ML IV.SOLN IVPB SCH (00:01)
[2020-06-06] MEDS: Piperacillin/Tazobactam 3.375 GM in 0.9 % Sodium Chloride Mini Bag 100 ML IVPB SCH ×3 (04:15→19:53)
[2020-06-06] MEDS: *HR* Heparin 5,000 UNIT/ML VIAL SQ SCH ×2 (04:16→18:13)
[2020-06-06 06:22] LABS: Basophils % 0.3 %; Eosinophils % 0.1 %; Hematocrit 45.8 % (37.5-50.1); Hemoglobin 14.4 g/dL (12.9-16.9); Immature Granulocytes % 0.4 % (0-4); Lymphocytes # 1.6 K/mcL (0.6-4.6); Lymphocytes % 13.6 %; Mean Corpuscular HGB Conc 31.4 g/dL (31.6-35.5); Mean Corpuscular Hemoglobin 29.9 pg (28.0-33.3); Mean Platelet Volume 10.7 fL (9.4-12.4); Monocytes # 1.1 K/mcL (0.0-1.3); Monocytes % 9.2 %; Neutrophils # 9.1 K/mcL (1.6-8.9); Platelet Count 284 K/mcL (140-400); Red Blood Count 4.82 M/mcL (4.19-5.50); Segmented Neutrophils % 76.4 %; White Blood Count 11.9 K/mcL (4.3-11.1)
[2020-06-06] MEDS: *HR* Promethazine 25 MG/ML VIAL IM PRN ×2 (06:43→12:43)
[2020-06-06] MEDS: Ondansetron 4 MG/2 ML VIAL IVP PRN ×2 (09:00→18:13)
[2020-06-06] MEDS: Nicotine 21 MG PATCH.TD24 TD SCH (09:00)
[2020-06-06 09:26] LABS: BUN/Creatinine Ratio 9 (6-26); Blood Urea Nitrogen 8 mg/dL (6-20); Calcium 8.9 mg/dL (8.6-10.3); Carbon Dioxide 25 mEq/L (23-29); Chloride 102 mEq/L (98-107); Glucose 79 mg/dL (70-105); Osmolality,Calculated 285 (280-300); Potassium 4.1 mEq/L (3.5-5.1); Sodium 139 mEq/L (136-145); eGFR For African Americans > 60 (> 60); eGFR For Non-African Americans > 60 (> 60)
[2020-06-06 10:22] LABS: Adenovirus Not Detected (Not Detect); Bordetella Pertussis Not Detected (Not Detect); Chlamydophila pneumoniae Not Detected (Not Detect); Coronavirus 229E Not Detected (Not Detect); Coronavirus HKU1 Not Detected (Not Detect); Coronavirus NL63 Not Detected (Not Detect); Coronavirus OC43 Not Detected (Not Detect); Human Metapneumovirus Not Detected (Not Detect); Human Rhinovirus/Enterovirus Not Detected (Not Detect); Influenza A Subtype 2009 H1 Not Detected (Not Detect); Influenza B Not Detected (Not Detect); Mycoplasma pneumoniae Not Detected (Not Detect); Parainfluenza Virus 1 Not Detected (Not Detect); Parainfluenza Virus 2 Not Detected (Not Detect); Parainfluenza Virus 3 Not Detected (Not Detect); Parainfluenza Virus 4 Not Detected (Not Detect); Respiratory Syncytial Virus Not Detected (Not Detect); SARS-CoV-2 Not Detected (Not Detect)
[2020-06-06] MEDS: 0.9 % Sodium Chloride 1,000 ML IVC SCH (11:40)
[2020-06-07] MEDS: Ondansetron 4 MG/2 ML VIAL IVP PRN ×2 (02:25→12:43)
[2020-06-07] MEDS: Piperacillin/Tazobactam 3.375 GM in 0.9 % Sodium Chloride Mini Bag 100 ML IVPB SCH (04:41)
[2020-06-07] MEDS: *HR* Heparin 5,000 UNIT/ML VIAL SQ SCH ×2 (04:42→16:56)
[2020-06-07 06:12] LABS: Basophils % 0.3 %; Eosinophils # 0.1 K/mcL (0.0-0.6); Eosinophils % 0.7 %; Hematocrit 42.5 % (37.5-50.1); Hemoglobin 13.7 g/dL (12.9-16.9); Immature Granulocytes % 0.3 % (0-4); Lymphocytes # 1.5 K/mcL (0.6-4.6); Lymphocytes % 17.7 %; Mean Corpuscular HGB Conc 32.2 g/dL (31.6-35.5); Mean Corpuscular Hemoglobin 30.2 pg (28.0-33.3); Mean Corpuscular Volume 93.8 fL (83.0-100.0); Mean Platelet Volume 11.2 fL (9.4-12.4); Monocytes % 11.7 %; Platelet Count 245 K/mcL (140-400); Red Blood Count 4.53 M/mcL (4.19-5.50); Red Cell Distribution Width 12.6 % (11.5-14.5); Segmented Neutrophils % 69.3 %; White Blood Count 8.6 K/mcL (4.3-11.1)
[2020-06-07 06:31] LABS: BUN/Creatinine Ratio 10 (6-26); Blood Urea Nitrogen 7 mg/dL (6-20); Calcium 8.8 mg/dL (8.6-10.3); Carbon Dioxide 28 mEq/L (23-29); Chloride 101 mEq/L (98-107); Glucose 92 mg/dL (70-105); Osmolality,Calculated 282 (280-300); Potassium 3.6 mEq/L (3.5-5.1); Sodium 137 mEq/L (136-145); eGFR For African Americans > 60 (> 60); eGFR For Non-African Americans > 60 (> 60)
[2020-06-07] MEDS: Nicotine 21 MG PATCH.TD24 TD SCH (08:57)
[2020-06-07] MEDS: cefTRIAXone 1,000 MG in Water for inj. (sterile) 10 ML IVP SCH (12:44)
[2020-06-08 02:26] LABS: Basophils # 0.1 K/mcL (0.0-0.2); Basophils % 0.9 %; Eosinophils # 0.2 K/mcL (0.0-0.6); Eosinophils % 3.1 %; Hematocrit 41.3 % (37.5-50.1); Hemoglobin 13.7 g/dL (12.9-16.9); Immature Granulocytes % 0.3 % (0-4); Lymphocytes # 2.5 K/mcL (0.6-4.6); Lymphocytes % 31.4 %; Mean Corpuscular HGB Conc 33.2 g/dL (31.6-35.5); Mean Corpuscular Hemoglobin 30.1 pg (28.0-33.3); Mean Corpuscular Volume 90.8 fL (83.0-100.0); Monocytes % 12.3 %; Neutrophils # 4.1 K/mcL (1.6-8.9); Platelet Count 246 K/mcL (140-400); Red Blood Count 4.55 M/mcL (4.19-5.50); Red Cell Distribution Width 12.4 % (11.5-14.5); White Blood Count 7.8 K/mcL (4.3-11.1)
[2020-06-08 02:44] LABS: BUN/Creatinine Ratio 9 (6-26); Blood Urea Nitrogen 7 mg/dL (6-20); Calcium 8.8 mg/dL (8.6-10.3); Carbon Dioxide 31 mEq/L (23-29); Chloride 100 mEq/L (98-107); Glucose 100 mg/dL (70-105); Osmolality,Calculated 284 (280-300); Potassium 3.1 mEq/L (3.5-5.1); Sodium 138 mEq/L (136-145); eGFR For African Americans > 60 (> 60); eGFR For Non-African Americans > 60 (> 60)
[2020-06-08] MEDS: *HR* Heparin 5,000 UNIT/ML VIAL SQ SCH (06:04)
[2020-06-08] MEDS ORDERED: Potassium Chloride Elixir 20 MEQ/15 ML UDC PO ONE (07:09)
[2020-06-08] MEDS: cefTRIAXone 1,000 MG in Water for inj. (sterile) 10 ML IVP SCH (08:30)
[2020-06-08] MEDS: Nicotine 21 MG PATCH.TD24 TD SCH (08:37)
[2020-06-08 11:23] VITALS: BP 133/69
== END 2020-06-08 12:36 | disposition home or self-care (01) ==
LOC: 2ANU 09:15 → EMEROOARM 09:15 → SUATTDRO 13:06 → 2ANU 13:39
PROVIDERS: ADMIT Internal Medicine; ATTEND Internal Medicine

== ENCOUNTER 2020-09-12 23:21 | Inpatient (IN) ==
[2020-09-13 00:23] LABS: Bacteria,Urine Few per hpf (None-Few); Bilirubin,Urine Negative (Negative); Blood,Urine Negative (Negative); Clarity,Urine Clear (Clear); Color,Urine Yellow (Yellow); Glucose,Urine (UA) Normal (Normal); Ketones,Urine Negative (Negative); Leukocyte Esterase,Urine Small (Negative); Mucus,Urine Many per lpf (None-Few); Nitrite,Urine Negative (Negative); PH,Urine 6.5 pH Units (5.0-8.0); Protein,Urine 70 mg/dL (Neg-Trace); Specific Gravity,Urine 1.027 (1.010-1.025); Squamous Epithelial Cell,Urine Few per hpf (None-Few); Urobilinogen,Urine Normal (Normal)
[2020-09-13 00:39] LABS: Acetaminophen < 10 mcg/mL (10-20); BUN/Creatinine Ratio 6 (6-26); Blood Urea Nitrogen 6 mg/dL (6-20); Calcium 9.6 mg/dL (8.6-10.3); Carbon Dioxide 26 mEq/L (23-29); Chloride 97 mEq/L (98-107); Ethanol < 10 mg/dL (Less than 10); Glucose 113 mg/dL (70-105); Osmolality,Calculated 276 (280-300); Potassium 3.7 mEq/L (3.5-5.1); Salicylate < 2.5 mg/dL (15.0-30.0); Sodium 134 mEq/L (136-145); eGFR For African Americans > 60 (> 60); eGFR For Non-African Americans > 60 (> 60)
[2020-09-13 00:46] LABS: Amphetamine Screen,Urine Positive ng/mL (Cutoff=1000); Barbiturate Screen,Urine Negative ng/mL (Cutoff=200); Benzodiazepines Screen,Urine Negative ng/mL (Cutoff=200); Cannabinoid Screen,Urine Positive ng/mL (Cutoff = 50); Cocaine Screen,Urine Negative ng/mL (Cutoff= 300); Opiate Screen,Urine Negative ng/mL (Cutoff=300); Phencyclidine Screen,Urine Negative ng/mL (Cutoff=25)
[2020-09-13] MEDS ORDERED: Haloperidol Lactate 5 MG/ML VIAL IM ONE (01:12)
[2020-09-13] MEDS ORDERED: Mag Hydrox/Al Hydrox/Simeth 30 ML UDC PO PRN (02:19)
[2020-09-13] MEDS ORDERED: *HR* LORazepam 2 MG/ML VIAL IM PRN (02:19)
[2020-09-13] MEDS ORDERED: MOM Conc 10 ML UD.LIQ PO PRN (02:19)
[2020-09-13] MEDS ORDERED: Ziprasidone 20 MG in Water for inj. (sterile) 1 ML IM PRN (02:36)
[2020-09-13] MEDS: QUEtiapine Fumarate 25 MG TABLET PO PRN ×2 (02:47→20:24)
[2020-09-13] MEDS: Nicotine 21 MG PATCH.TD24 TD SCH (10:47)
[2020-09-13] MEDS: hydrOXYzine pamoate 25 MG CAPSULE PO PRN (20:24)
[2020-09-13] MEDS: Divalproex (24 HR) 500 MG TABLET PO SCH (20:24)
[2020-09-13] MEDS: RisperiDAL 3 MG TABLET PO SCH (20:24)
[2020-09-13] MEDS: Acetaminophen 325 MG TABLET PO PRN (20:24)
[2020-09-14] MEDS: Nicotine 21 MG PATCH.TD24 TD SCH (08:41)
[2020-09-14] MEDS: risperiDONE 1 MG TABLET PO SCH (14:05)
[2020-09-14] MEDS: RisperiDAL 3 MG TABLET PO SCH (20:20)
[2020-09-14] MEDS: Acetaminophen 325 MG TABLET PO PRN (20:21)
[2020-09-14] MEDS: Divalproex (24 HR) 500 MG TABLET PO SCH (20:21)
[2020-09-15] MEDS: Nicotine 21 MG PATCH.TD24 TD SCH (10:22)
[2020-09-15] MEDS: risperiDONE 1 MG TABLET PO SCH (10:23)
[2020-09-15] MEDS ORDERED: Carbamide Peroxide 150 DROP/15 ML BOTTLE RIGHT EAR ONE (14:20)
[2020-09-15] MEDS: Ziprasidone 20 MG CAPSULE PO PRN (18:25)
[2020-09-15] MEDS: Divalproex (24 HR) 500 MG TABLET PO SCH (20:25)
[2020-09-15] MEDS: RisperiDAL 3 MG TABLET PO SCH (20:25)
[2020-09-15] MEDS: hydrOXYzine pamoate 25 MG CAPSULE PO PRN (20:25)
[2020-09-15] MEDS: QUEtiapine Fumarate 25 MG TABLET PO PRN (20:25)
[2020-09-15] MEDS ORDERED: ARIPiprazole 10 MG TABLET PO SCH (21:00)
[2020-09-16] MEDS: Ziprasidone 20 MG CAPSULE PO PRN (09:19)
[2020-09-16] MEDS: Nicotine 21 MG PATCH.TD24 TD SCH (09:19)
[2020-09-16] MEDS: risperiDONE 1 MG TABLET PO SCH (09:55)
[2020-09-16] MEDS: Divalproex (24 HR) 500 MG TABLET PO SCH (20:32)
[2020-09-16] MEDS: hydrOXYzine pamoate 25 MG CAPSULE PO PRN (20:35)
[2020-09-16] MEDS: QUEtiapine Fumarate 25 MG TABLET PO PRN (20:35)
[2020-09-17] MEDS: Nicotine 21 MG PATCH.TD24 TD SCH (09:43)
[2020-09-17] MEDS: hydrOXYzine pamoate 25 MG CAPSULE PO PRN ×3 (13:56→20:56)
[2020-09-17] MEDS: Carbamide Peroxide 150 DROP/15 ML BOTTLE RIGHT EAR SCH (13:56)
[2020-09-17] MEDS: Acetaminophen 325 MG TABLET PO PRN (17:36)
[2020-09-17] MEDS: Divalproex (24 HR) 500 MG TABLET PO SCH (20:03)
[2020-09-17] MEDS: QUEtiapine Fumarate 25 MG TABLET PO PRN (20:03)
[2020-09-17] MEDS: traZODone 50 MG TABLET PO PRN (20:56)
[2020-09-18] MEDS: Nicotine 21 MG PATCH.TD24 TD SCH (09:21)
[2020-09-18] MEDS: Carbamide Peroxide 150 DROP/15 ML BOTTLE RIGHT EAR SCH (09:22)
[2020-09-18] MEDS: Neosporin OINT 15 GM TUBE TP SCH ×2 (11:40→20:52)
[2020-09-18] MEDS: QUEtiapine Fumarate 25 MG TABLET PO PRN (20:51)
[2020-09-18] MEDS: hydrOXYzine pamoate 25 MG CAPSULE PO PRN (20:51)
[2020-09-18] MEDS: Divalproex (24 HR) 500 MG TABLET PO SCH (20:51)
[2020-09-18] MEDS: traZODone 50 MG TABLET PO PRN (22:08)
[2020-09-19] MEDS: Nicotine 21 MG PATCH.TD24 TD SCH (09:25)
[2020-09-19] MEDS: Neosporin OINT 15 GM TUBE TP SCH ×2 (09:31→20:33)
[2020-09-19] MEDS: Carbamide Peroxide 150 DROP/15 ML BOTTLE RIGHT EAR SCH (09:35)
[2020-09-19] MEDS: traZODone 50 MG TABLET PO PRN (20:27)
[2020-09-19] MEDS: QUEtiapine Fumarate 25 MG TABLET PO PRN (20:27)
[2020-09-19] MEDS: Divalproex (24 HR) 500 MG TABLET PO SCH (20:28)
[2020-09-20] MEDS: Nicotine 21 MG PATCH.TD24 TD SCH (08:44)
[2020-09-20] MEDS: Neosporin OINT 15 GM TUBE TP SCH ×2 (08:48→21:52)
[2020-09-20] MEDS: Carbamide Peroxide 150 DROP/15 ML BOTTLE RIGHT EAR SCH (09:01)
[2020-09-20] MEDS: hydrOXYzine pamoate 25 MG CAPSULE PO PRN (18:45)
[2020-09-20] MEDS: traZODone 50 MG TABLET PO PRN (21:33)
[2020-09-20] MEDS: Acetaminophen 325 MG TABLET PO PRN (21:33)
[2020-09-20] MEDS: QUEtiapine Fumarate 25 MG TABLET PO PRN (21:34)
[2020-09-20] MEDS: Divalproex (24 HR) 500 MG TABLET PO SCH (22:55)
[2020-09-20] MEDS: Ciprofloxacin/Dex *EAR* Susp 7.5 ML BOTTLE BOTH EARS SCH (23:00)
[2020-09-21] MEDS: Ziprasidone 20 MG CAPSULE PO PRN (00:55)
[2020-09-21] MEDS: *HR* LORazepam 1 MG TABLET PO PRN (00:55)
[2020-09-21] MEDS: Nicotine 21 MG PATCH.TD24 TD SCH (09:54)
[2020-09-21] MEDS: Ciprofloxacin/Dex *EAR* Susp 7.5 ML BOTTLE BOTH EARS SCH ×2 (09:55→21:49)
[2020-09-21] MEDS: Neosporin OINT 15 GM TUBE TP SCH ×2 (09:55→21:49)
[2020-09-21] MEDS: Divalproex (24 HR) 500 MG TABLET PO SCH (21:19)
[2020-09-21] MEDS: tiZANidine 4 MG TABLET PO SCH (21:21)
[2020-09-22 08:57] LABS: Basophils # 0.1 K/mcL (0.0-0.2); Eosinophils # 0.4 K/mcL (0.0-0.6); Eosinophils % 4.2 %; Hematocrit 43.6 % (37.5-50.1); Hemoglobin 14.4 g/dL (12.9-16.9); Immature Granulocytes % 0.6 % (0-4); Lymphocytes # 2.4 K/mcL (0.6-4.6); Lymphocytes % 29.2 %; Mean Corpuscular Hemoglobin 29.7 pg (28.0-33.3); Mean Corpuscular Volume 89.9 fL (83.0-100.0); Mean Platelet Volume 10.2 fL (9.4-12.4); Monocytes # 0.9 K/mcL (0.0-1.3); Monocytes % 10.4 %; Neutrophils # 4.5 K/mcL (1.6-8.9); Platelet Count 284 K/mcL (140-400); Red Blood Count 4.85 M/mcL (4.19-5.50); Red Cell Distribution Width 13.1 % (11.5-14.5); Segmented Neutrophils % 54.6 %; White Blood Count 8.3 K/mcL (4.3-11.1)
[2020-09-22 09:34] LABS: Thyroid Stimulating Hormone 3.435 mcIU/mL (0.340-5.600)
[2020-09-22] MEDS: tiZANidine 4 MG TABLET PO SCH ×3 (09:43→20:49)
[2020-09-22] MEDS: Nicotine 21 MG PATCH.TD24 TD SCH (09:44)
[2020-09-22] MEDS: Ciprofloxacin/Dex *EAR* Susp 7.5 ML BOTTLE BOTH EARS SCH ×2 (09:47→20:59)
[2020-09-22] MEDS: Neosporin OINT 15 GM TUBE TP SCH ×2 (09:47→20:59)
[2020-09-22] MEDS ORDERED: PALIPERIDONE PALMITATE 156 MG/ML IM SCH (17:45)
[2020-09-22] MEDS: Divalproex (24 HR) 500 MG TABLET PO SCH (20:49)
[2020-09-22] MEDS: hydrOXYzine pamoate 25 MG CAPSULE PO PRN (20:49)
[2020-09-22] MEDS: traZODone 50 MG TABLET PO PRN (20:50)
[2020-09-22] MEDS: QUEtiapine Fumarate 25 MG TABLET PO PRN (20:50)
[2020-09-22] MEDS: Acetaminophen 325 MG TABLET PO PRN (20:50)
[2020-09-23] MEDS: tiZANidine 4 MG TABLET PO SCH ×3 (10:18→20:43)
[2020-09-23] MEDS: Nicotine 21 MG PATCH.TD24 TD SCH (10:20)
[2020-09-23] MEDS: Ciprofloxacin/Dex *EAR* Susp 7.5 ML BOTTLE BOTH EARS SCH ×3 (10:20→20:47)
[2020-09-23] MEDS: Neosporin OINT 15 GM TUBE TP SCH ×2 (10:20→20:47)
[2020-09-23] MEDS: Divalproex (24 HR) 500 MG TABLET PO SCH (20:43)
[2020-09-23] MEDS: *HR* LORazepam 1 MG TABLET PO PRN (20:43)
[2020-09-23] MEDS: Sulfamethoxazole/Trimeth DS 1 EACH TABLET PO SCH (21:50)
[2020-09-23] MEDS: QUEtiapine Fumarate 25 MG TABLET PO PRN (22:23)
[2020-09-23] MEDS: hydrOXYzine pamoate 25 MG CAPSULE PO PRN (22:23)
[2020-09-24] MEDS: Nicotine 21 MG PATCH.TD24 TD SCH (09:20)
[2020-09-24] MEDS: Sulfamethoxazole/Trimeth DS 1 EACH TABLET PO SCH ×2 (09:21→20:43)
[2020-09-24] MEDS: tiZANidine 4 MG TABLET PO SCH ×3 (09:22→20:44)
[2020-09-24] MEDS: Neosporin OINT 15 GM TUBE TP SCH ×2 (09:27→20:54)
[2020-09-24] MEDS: Ciprofloxacin/Dex *EAR* Susp 7.5 ML BOTTLE BOTH EARS SCH ×2 (09:27→20:48)
[2020-09-24] MEDS: hydrOXYzine pamoate 25 MG CAPSULE PO PRN ×2 (12:07→22:27)
[2020-09-24] MEDS: Divalproex (24 HR) 500 MG TABLET PO SCH (20:43)
[2020-09-24] MEDS: QUEtiapine Fumarate 25 MG TABLET PO PRN (22:27)
[2020-09-24] MEDS: Ziprasidone 20 MG CAPSULE PO PRN (23:53)
[2020-09-24] MEDS: *HR* LORazepam 1 MG TABLET PO PRN (23:53)
[2020-09-25] MEDS: tiZANidine 4 MG TABLET PO SCH ×3 (08:56→20:46)
[2020-09-25] MEDS: Sulfamethoxazole/Trimeth DS 1 EACH TABLET PO SCH ×2 (09:01→20:46)
[2020-09-25] MEDS: Neosporin OINT 15 GM TUBE TP SCH ×2 (09:03→20:49)
[2020-09-25] MEDS: Nicotine 21 MG PATCH.TD24 TD SCH (09:03)
[2020-09-25] MEDS: Ciprofloxacin/Dex *EAR* Susp 7.5 ML BOTTLE BOTH EARS SCH ×2 (09:05→20:55)
[2020-09-25] MEDS: Divalproex (24 HR) 500 MG TABLET PO SCH (20:45)
[2020-09-25] MEDS: *HR* LORazepam 1 MG TABLET PO PRN (22:32)
[2020-09-25] MEDS: Ziprasidone 20 MG CAPSULE PO PRN (22:32)
[2020-09-26] MEDS: QUEtiapine Fumarate 25 MG TABLET PO PRN ×2 (00:39→21:53)
[2020-09-26] MEDS: tiZANidine 4 MG TABLET PO SCH ×3 (08:22→20:58)
[2020-09-26] MEDS: Sulfamethoxazole/Trimeth DS 1 EACH TABLET PO SCH ×2 (08:23→20:59)
[2020-09-26] MEDS: Nicotine 21 MG PATCH.TD24 TD SCH (08:24)
[2020-09-26] MEDS: Ciprofloxacin/Dex *EAR* Susp 7.5 ML BOTTLE BOTH EARS SCH ×2 (09:45→21:02)
[2020-09-26] MEDS: Neosporin OINT 15 GM TUBE TP SCH ×2 (13:20→20:57)
[2020-09-26] MEDS: Divalproex (24 HR) 500 MG TABLET PO SCH (20:59)
[2020-09-26] MEDS: hydrOXYzine pamoate 25 MG CAPSULE PO PRN (21:53)
[2020-09-27 09:04] VITALS: BP 102/66
[2020-09-27] MEDS: Nicotine 21 MG PATCH.TD24 TD SCH (09:21)
[2020-09-27] MEDS: Sulfamethoxazole/Trimeth DS 1 EACH TABLET PO SCH (09:21)
[2020-09-27] MEDS: tiZANidine 4 MG TABLET PO SCH ×2 (09:22→14:32)
[2020-09-27] MEDS: Ciprofloxacin/Dex *EAR* Susp 7.5 ML BOTTLE BOTH EARS SCH ×2 (09:25→10:21)
[2020-09-27] MEDS: Neosporin OINT 15 GM TUBE TP SCH (09:25)
[2020-09-27] MEDS ORDERED: FluPHENAZine 10 MG TABLET PO SCH (21:00)
== END 2020-09-27 17:50 | disposition short-term general hospital (02) | DRG 750 ==
LOC: EMEROOARM 23:21 → 1ANU 09-13 02:04 → SUATTDRO 09-13 02:04 → 1ANU 09-13 02:15
PROVIDERS: ADMIT Psychiatry & Neurology Psychiatry; ATTEND Psychiatry & Neurology Forensic Psychiatry

== ENCOUNTER 2020-09-27 16:31 | Inpatient (IN) ==
[2020-09-27] MEDS ORDERED: Naloxone 0.4 MG/ML INJ IVP PRN (17:53)
[2020-09-27] MEDS ORDERED: Melatonin 3 MG TABLET PO PRN (17:53)
[2020-09-27] MEDS ORDERED: Acetaminophen 325 MG TABLET PO PRN (17:53)
[2020-09-27] MEDS ORDERED: hydrOXYzine pamoate 25 MG CAPSULE PO PRN (17:58)
[2020-09-27] MEDS ORDERED: Ziprasidone 20 MG CAPSULE PO PRN (17:58)
[2020-09-27] MEDS ORDERED: *HR* LORazepam 2 MG/ML VIAL IVP PRN (17:58)
[2020-09-27] MEDS ORDERED: traZODone 50 MG TABLET PO PRN (17:58)
[2020-09-27 21:19] LABS: Basophils # 0.1 K/mcL (0.0-0.2); Basophils % 1.1 %; Eosinophils # 0.1 K/mcL (0.0-0.6); Eosinophils % 2.3 %; Hematocrit 41.9 % (37.5-50.1); Immature Granulocytes % 0.5 % (0-4); Lymphocytes # 1.5 K/mcL (0.6-4.6); Lymphocytes % 26.4 %; Mean Corpuscular HGB Conc 33.4 g/dL (31.6-35.5); Mean Corpuscular Hemoglobin 29.7 pg (28.0-33.3); Mean Platelet Volume 10.8 fL (9.4-12.4); Monocytes # 0.6 K/mcL (0.0-1.3); Monocytes % 10.4 %; Neutrophils # 3.3 K/mcL (1.6-8.9); Platelet Count 224 K/mcL (140-400); Red Blood Count 4.71 M/mcL (4.19-5.50); Red Cell Distribution Width 13.1 % (11.5-14.5); Segmented Neutrophils % 59.3 %; White Blood Count 5.6 K/mcL (4.3-11.1)
[2020-09-27 21:38] LABS: BUN/Creatinine Ratio 15 (6-26); Blood Urea Nitrogen 21 mg/dL (6-20); Carbon Dioxide 25 mEq/L (23-29); Chloride 101 mEq/L (98-107); Glucose 115 mg/dL (70-105); Osmolality,Calculated 288 (280-300); Potassium 4.1 mEq/L (3.5-5.1); Sodium 137 mEq/L (136-145); eGFR For African Americans > 60 (> 60); eGFR For Non-African Americans 57 (> 60)
[2020-09-27] MEDS: Ampicillin/Sulbactam 3,000 MG in 0.9 % Sodium Chloride Mini Bag 100 ML IVPB SCH ×2 (21:53→23:56)
[2020-09-27] MEDS: FluPHENAZine 10 MG TABLET PO SCH (21:55)
[2020-09-27] MEDS: QUEtiapine Fumarate 25 MG TABLET PO SCH (21:55)
[2020-09-27] MEDS: Divalproex (24 HR) 500 MG TABLET PO SCH (21:57)
[2020-09-27] MEDS: Neosporin OINT 15 GM TUBE TP SCH (23:54)
[2020-09-27] MEDS: 0.9 % Sodium Chloride 1,000 ML IVC SCH (23:56)
[2020-09-27] MEDS: Ciprofloxacin/Dex *EAR* Susp 7.5 ML BOTTLE BOTH EARS SCH (23:56)
[2020-09-28] MEDS: Ampicillin/Sulbactam 3,000 MG in 0.9 % Sodium Chloride Mini Bag 100 ML IVPB SCH ×4 (05:55→22:38)
[2020-09-28 08:35] LABS: Basophils # 0.1 K/mcL (0.0-0.2); Eosinophils # 0.2 K/mcL (0.0-0.6); Eosinophils % 2.8 %; Hematocrit 41.1 % (37.5-50.1); Hemoglobin 13.5 g/dL (12.9-16.9); Immature Granulocytes % 0.7 % (0-4); Lymphocytes # 2.5 K/mcL (0.6-4.6); Lymphocytes % 36.5 %; Mean Corpuscular HGB Conc 32.8 g/dL (31.6-35.5); Mean Corpuscular Hemoglobin 29.5 pg (28.0-33.3); Mean Corpuscular Volume 89.7 fL (83.0-100.0); Mean Platelet Volume 10.7 fL (9.4-12.4); Monocytes # 0.8 K/mcL (0.0-1.3); Monocytes % 12.1 %; Neutrophils # 3.2 K/mcL (1.6-8.9); Platelet Count 219 K/mcL (140-400); Red Blood Count 4.58 M/mcL (4.19-5.50); Red Cell Distribution Width 13.2 % (11.5-14.5); Segmented Neutrophils % 46.9 %; White Blood Count 6.8 K/mcL (4.3-11.1)
[2020-09-28 08:57] LABS: BUN/Creatinine Ratio 15 (6-26); Blood Urea Nitrogen 19 mg/dL (6-20); Calcium 8.4 mg/dL (8.6-10.3); Carbon Dioxide 25 mEq/L (23-29); Chloride 106 mEq/L (98-107); Glucose 90 mg/dL (70-105); Osmolality,Calculated 286 (280-300); Potassium 4.1 mEq/L (3.5-5.1); Sodium 137 mEq/L (136-145); eGFR For African Americans > 60 (> 60); eGFR For Non-African Americans > 60 (> 60)
[2020-09-28] MEDS ORDERED: Nicotine 21 MG PATCH.TD24 TD SCH (09:00)
[2020-09-28] MEDS: 0.9 % Sodium Chloride 1,000 ML IVC SCH ×3 (09:07→22:40)
[2020-09-28] MEDS: Ciprofloxacin/Dex *EAR* Susp 7.5 ML BOTTLE BOTH EARS SCH ×2 (09:10→22:50)
[2020-09-28] MEDS: Neosporin OINT 15 GM TUBE TP SCH ×2 (09:11→22:51)
[2020-09-28] MEDS ORDERED: Lidocaine/EPI 1:200k 1% PF 10 ML VIAL ONE (18:28)
[2020-09-28] MEDS ORDERED: Lidocaine -MPF 2% 2 ML VIAL ONE (18:49)
[2020-09-28] MEDS ORDERED: *HR* Midazolam HCl 2 MG/2 ML VIAL ONE (18:49)
[2020-09-28] MEDS ORDERED: *HR* FentaNYL (PF) 100 MCG/2 ML VIAL ONE (18:49)
[2020-09-28] MEDS ORDERED: *HR* LORazepam 2 MG/ML VIAL IVP PRN (22:19)
[2020-09-28] MEDS ORDERED: Melatonin 3 MG TABLET PO PRN (22:19)
[2020-09-28] MEDS ORDERED: Naloxone 0.4 MG/ML INJ IVP PRN (22:19)
[2020-09-28] MEDS ORDERED: Ziprasidone 20 MG CAPSULE PO PRN (22:19)
[2020-09-28] MEDS ORDERED: traZODone 50 MG TABLET PO PRN (22:19)
[2020-09-28] MEDS ORDERED: hydrOXYzine pamoate 25 MG CAPSULE PO PRN (22:19)
[2020-09-28] MEDS ORDERED: FluPHENAZine 10 MG TABLET PO SCH (22:30)
[2020-09-28] MEDS ORDERED: QUEtiapine Fumarate 25 MG TABLET PO SCH (22:45)
[2020-09-28] MEDS ORDERED: Divalproex (24 HR) 500 MG TABLET PO SCH (22:45)
[2020-09-28] MEDS: QUEtiapine Fumarate 25 MG TABLET PO SCH (22:51)
[2020-09-28] MEDS: FluPHENAZine 10 MG TABLET PO SCH (22:51)
[2020-09-28] MEDS: Divalproex (24 HR) 500 MG TABLET PO SCH (22:51)
[2020-09-29] MEDS: Acetaminophen 325 MG TABLET PO PRN ×2 (00:34→15:00)
[2020-09-29] MEDS: Ampicillin/Sulbactam 3,000 MG in 0.9 % Sodium Chloride Mini Bag 100 ML IVPB SCH ×2 (05:55→15:01)
[2020-09-29 08:04] LABS: Basophils # 0.1 K/mcL (0.0-0.2); Eosinophils # 0.2 K/mcL (0.0-0.6); Eosinophils % 2.8 %; Hematocrit 39.4 % (37.5-50.1); Hemoglobin 12.5 g/dL (12.9-16.9); Immature Granulocytes % 0.7 % (0-4); Lymphocytes # 2.8 K/mcL (0.6-4.6); Mean Corpuscular HGB Conc 31.7 g/dL (31.6-35.5); Mean Corpuscular Volume 91.4 fL (83.0-100.0); Monocytes # 0.7 K/mcL (0.0-1.3); Platelet Count 228 K/mcL (140-400); Red Blood Count 4.31 M/mcL (4.19-5.50); Red Cell Distribution Width 13.3 % (11.5-14.5); Segmented Neutrophils % 44.5 %; White Blood Count 6.7 K/mcL (4.3-11.1)
[2020-09-29 08:21] LABS: BUN/Creatinine Ratio 13 (6-26); Blood Urea Nitrogen 15 mg/dL (6-20); Calcium 7.9 mg/dL (8.6-10.3); Carbon Dioxide 26 mEq/L (23-29); Chloride 107 mEq/L (98-107); Glucose 95 mg/dL (70-105); Osmolality,Calculated 287 (280-300); Sodium 138 mEq/L (136-145); eGFR For African Americans > 60 (> 60); eGFR For Non-African Americans > 60 (> 60)
[2020-09-29] MEDS ORDERED: Ciprofloxacin/Dex *EAR* Susp 7.5 ML BOTTLE BOTH EARS SCH (09:00)
[2020-09-29] MEDS ORDERED: Nicotine 21 MG PATCH.TD24 TD SCH (09:00)
[2020-09-29] MEDS ORDERED: Neosporin OINT 15 GM TUBE TP SCH (09:00)
[2020-09-29] MEDS: 0.9 % Sodium Chloride 1,000 ML IVC SCH (09:30)
[2020-09-29 11:44] VITALS: BP 105/71
== END 2020-09-29 16:37 | DRG 383 ==
LOC: 3BNU → SUATTDRO 18:11
PROVIDERS: ADMIT Internal Medicine; ATTEND Internal Medicine

== ENCOUNTER 2020-09-29 17:18 | Inpatient (IN) ==
[2020-09-29] MEDS ORDERED: *HR* LORazepam 2 MG/ML VIAL IM PRN (17:59)
[2020-09-29] MEDS ORDERED: Mag Hydrox/Al Hydrox/Simeth 30 ML UDC PO PRN (17:59)
[2020-09-29] MEDS: QUEtiapine Fumarate 25 MG TABLET PO SCH (22:10)
[2020-09-29] MEDS: Divalproex (24 HR) 500 MG TABLET PO SCH (22:10)
[2020-09-29] MEDS: hydrOXYzine pamoate 25 MG CAPSULE PO PRN (22:10)
[2020-09-29] MEDS: FluPHENAZine 10 MG TABLET PO SCH (22:10)
[2020-09-29] MEDS: Acetaminophen 325 MG TABLET PO PRN (22:11)
[2020-09-29] MEDS: Sulfamethoxazole/Trimeth DS 1 EACH TABLET PO SCH (22:13)
[2020-09-29] MEDS: Neosporin OINT 15 GM TUBE TP SCH (22:28)
[2020-09-29] MEDS: Ciprofloxacin/Dex *EAR* Susp 7.5 ML BOTTLE BOTH EARS SCH (22:28)
[2020-09-30] MEDS: Nicotine 21 MG PATCH.TD24 TD SCH (09:39)
[2020-09-30] MEDS: Ciprofloxacin/Dex *EAR* Susp 7.5 ML BOTTLE BOTH EARS SCH ×2 (09:43→21:06)
[2020-09-30] MEDS: Sulfamethoxazole/Trimeth DS 1 EACH TABLET PO SCH ×2 (10:51→21:06)
[2020-09-30] MEDS ORDERED: Ibuprofen 800 MG TABLET PO PRN (11:16)
[2020-09-30] MEDS: Neosporin OINT 15 GM TUBE TP SCH ×2 (18:03→21:07)
[2020-09-30] MEDS: Divalproex (24 HR) 500 MG TABLET PO SCH (21:05)
[2020-09-30] MEDS: QUEtiapine Fumarate 25 MG TABLET PO SCH (21:06)
[2020-09-30] MEDS: FluPHENAZine 10 MG TABLET PO SCH (21:06)
[2020-10-01] MEDS: traZODone 50 MG TABLET PO PRN ×2 (00:40→23:08)
[2020-10-01] MEDS: hydrOXYzine pamoate 25 MG CAPSULE PO PRN (00:40)
[2020-10-01] MEDS ORDERED: MOM Conc 10 ML UD.LIQ PO PRN (09:45)
[2020-10-01] MEDS: Nicotine 21 MG PATCH.TD24 TD SCH (10:13)
[2020-10-01] MEDS: Sulfamethoxazole/Trimeth DS 1 EACH TABLET PO SCH ×2 (10:16→20:28)
[2020-10-01] MEDS: Ciprofloxacin/Dex *EAR* Susp 7.5 ML BOTTLE BOTH EARS SCH ×2 (10:19→20:49)
[2020-10-01] MEDS: Neosporin OINT 15 GM TUBE TP SCH (10:39)
[2020-10-01] MEDS: FluPHENAZine 10 MG TABLET PO SCH (20:27)
[2020-10-01] MEDS: Divalproex (24 HR) 500 MG TABLET PO SCH (20:28)
[2020-10-01] MEDS: QUEtiapine Fumarate 25 MG TABLET PO SCH (20:53)
[2020-10-02] MEDS: Nicotine 21 MG PATCH.TD24 TD SCH (09:30)
[2020-10-02] MEDS: Sulfamethoxazole/Trimeth DS 1 EACH TABLET PO SCH ×2 (09:30→20:33)
[2020-10-02] MEDS: Ciprofloxacin/Dex *EAR* Susp 7.5 ML BOTTLE BOTH EARS SCH ×2 (10:32→20:37)
[2020-10-02] MEDS: *HR* LORazepam 1 MG TABLET PO PRN (18:57)
[2020-10-02] MEDS: Ziprasidone 20 MG CAPSULE PO PRN (18:57)
[2020-10-02] MEDS: Divalproex (24 HR) 500 MG TABLET PO SCH (20:31)
[2020-10-02] MEDS: FluPHENAZine 10 MG TABLET PO SCH (20:31)
[2020-10-02] MEDS: QUEtiapine Fumarate 25 MG TABLET PO SCH (20:33)
[2020-10-03] MEDS: Nicotine 21 MG PATCH.TD24 TD SCH (09:03)
[2020-10-03] MEDS: Sulfamethoxazole/Trimeth DS 1 EACH TABLET PO SCH ×2 (09:04→20:33)
[2020-10-03] MEDS: Ciprofloxacin/Dex *EAR* Susp 7.5 ML BOTTLE BOTH EARS SCH ×2 (09:09→20:33)
[2020-10-03] MEDS: *HR* LORazepam 1 MG TABLET PO PRN (15:28)
[2020-10-03] MEDS: Ziprasidone 20 MG CAPSULE PO PRN (15:28)
[2020-10-03] MEDS: Divalproex (24 HR) 500 MG TABLET PO SCH (20:33)
[2020-10-03] MEDS: FluPHENAZine 10 MG TABLET PO SCH (20:34)
[2020-10-03] MEDS: QUEtiapine Fumarate 100 MG TABLET PO SCH (20:34)
[2020-10-04] MEDS: Sulfamethoxazole/Trimeth DS 1 EACH TABLET PO SCH ×2 (08:58→20:46)
[2020-10-04] MEDS: Nicotine 21 MG PATCH.TD24 TD SCH (09:00)
[2020-10-04] MEDS: Ciprofloxacin/Dex *EAR* Susp 7.5 ML BOTTLE BOTH EARS SCH ×2 (09:00→20:53)
[2020-10-04] MEDS: hydrOXYzine pamoate 25 MG CAPSULE PO PRN (16:09)
[2020-10-04] MEDS: Ziprasidone 20 MG CAPSULE PO PRN (16:09)
[2020-10-04] MEDS: *HR* LORazepam 1 MG TABLET PO PRN (16:09)
[2020-10-04] MEDS: FluPHENAZine 10 MG TABLET PO SCH (20:46)
[2020-10-04] MEDS: Divalproex (24 HR) 500 MG TABLET PO SCH (20:46)
[2020-10-04] MEDS: QUEtiapine Fumarate 100 MG TABLET PO SCH (20:47)
[2020-10-05] MEDS: Nicotine 21 MG PATCH.TD24 TD SCH (08:31)
[2020-10-05] MEDS: Sulfamethoxazole/Trimeth DS 1 EACH TABLET PO SCH ×2 (08:34→21:08)
[2020-10-05] MEDS: Ciprofloxacin/Dex *EAR* Susp 7.5 ML BOTTLE BOTH EARS SCH ×2 (09:31→21:18)
[2020-10-05] MEDS: Neosporin OINT 15 GM TUBE TP SCH ×2 (09:41→21:14)
[2020-10-05] MEDS: hydrOXYzine pamoate 25 MG CAPSULE PO PRN (18:09)
[2020-10-05] MEDS: *HR* LORazepam 1 MG TABLET PO PRN (19:37)
[2020-10-05] MEDS: Ziprasidone 20 MG CAPSULE PO PRN (19:37)
[2020-10-05] MEDS: Divalproex (24 HR) 500 MG TABLET PO SCH (21:09)
[2020-10-05] MEDS: QUEtiapine Fumarate 100 MG TABLET PO SCH (21:13)
[2020-10-05] MEDS: FluPHENAZine 10 MG TABLET PO SCH (21:14)
[2020-10-06] MEDS: traZODone 50 MG TABLET PO PRN (00:26)
[2020-10-06] MEDS: Sulfamethoxazole/Trimeth DS 1 EACH TABLET PO SCH ×2 (08:38→20:41)
[2020-10-06] MEDS: Ciprofloxacin/Dex *EAR* Susp 7.5 ML BOTTLE BOTH EARS SCH ×2 (09:18→20:51)
[2020-10-06] MEDS: Nicotine 21 MG PATCH.TD24 TD SCH (09:20)
[2020-10-06] MEDS: Neosporin OINT 15 GM TUBE TP SCH ×2 (09:21→20:52)
[2020-10-06] MEDS: QUEtiapine Fumarate 100 MG TABLET PO SCH (20:41)
[2020-10-06] MEDS: Divalproex (24 HR) 500 MG TABLET PO SCH (20:41)
[2020-10-06] MEDS: FluPHENAZine 10 MG TABLET PO SCH (20:41)
[2020-10-07] MEDS: Sulfamethoxazole/Trimeth DS 1 EACH TABLET PO SCH ×2 (09:38→20:23)
[2020-10-07] MEDS: Nicotine 21 MG PATCH.TD24 TD SCH (09:44)
[2020-10-07] MEDS: Ciprofloxacin/Dex *EAR* Susp 7.5 ML BOTTLE BOTH EARS SCH ×2 (09:46→21:29)
[2020-10-07] MEDS: Neosporin OINT 15 GM TUBE TP SCH ×2 (09:46→21:29)
[2020-10-07] MEDS: *HR* LORazepam 1 MG TABLET PO PRN (18:53)
[2020-10-07] MEDS: Ziprasidone 20 MG CAPSULE PO PRN (18:53)
[2020-10-07] MEDS: hydrOXYzine pamoate 25 MG CAPSULE PO PRN (20:23)
[2020-10-07] MEDS: QUEtiapine Fumarate 100 MG TABLET PO SCH (20:23)
[2020-10-07] MEDS: Divalproex (24 HR) 500 MG TABLET PO SCH (20:23)
[2020-10-07] MEDS: FluPHENAZine 10 MG TABLET PO SCH (20:23)
[2020-10-08] MEDS: Nicotine 21 MG PATCH.TD24 TD SCH (08:47)
[2020-10-08] MEDS: Ciprofloxacin/Dex *EAR* Susp 7.5 ML BOTTLE BOTH EARS SCH ×2 (08:51→20:36)
[2020-10-08] MEDS: Sulfamethoxazole/Trimeth DS 1 EACH TABLET PO SCH ×2 (08:52→20:32)
[2020-10-08] MEDS: Neosporin OINT 15 GM TUBE TP SCH ×2 (10:16→20:36)
[2020-10-08] MEDS: Ziprasidone 20 MG CAPSULE PO PRN (18:32)
[2020-10-08] MEDS: *HR* LORazepam 1 MG TABLET PO PRN (18:32)
[2020-10-08] MEDS: Divalproex (24 HR) 500 MG TABLET PO SCH (20:31)
[2020-10-08] MEDS: QUEtiapine Fumarate 100 MG TABLET PO SCH (20:31)
[2020-10-08] MEDS: hydrOXYzine pamoate 25 MG CAPSULE PO PRN (20:31)
[2020-10-08] MEDS: FluPHENAZine 10 MG TABLET PO SCH (20:32)
[2020-10-08] MEDS: Acetaminophen 325 MG TABLET PO PRN (20:32)
[2020-10-09] MEDS: Nicotine 21 MG PATCH.TD24 TD SCH (09:15)
[2020-10-09] MEDS: Sulfamethoxazole/Trimeth DS 1 EACH TABLET PO SCH ×2 (09:16→20:45)
[2020-10-09] MEDS: Ciprofloxacin/Dex *EAR* Susp 7.5 ML BOTTLE BOTH EARS SCH ×2 (09:18→21:00)
[2020-10-09] MEDS: Neosporin OINT 15 GM TUBE TP SCH ×2 (09:19→21:00)
[2020-10-09] MEDS: Ziprasidone 20 MG CAPSULE PO PRN (17:32)
[2020-10-09] MEDS: *HR* LORazepam 1 MG TABLET PO PRN (17:32)
[2020-10-09] MEDS: Divalproex (24 HR) 500 MG TABLET PO SCH (20:44)
[2020-10-09] MEDS: traZODone 50 MG TABLET PO PRN (20:44)
[2020-10-09] MEDS: hydrOXYzine pamoate 25 MG CAPSULE PO PRN (20:45)
[2020-10-09] MEDS: Acetaminophen 325 MG TABLET PO PRN (20:45)
[2020-10-09] MEDS: QUEtiapine Fumarate 100 MG TABLET PO SCH (20:45)
[2020-10-09] MEDS: FluPHENAZine 10 MG TABLET PO SCH (20:45)
[2020-10-10] MEDS: hydrOXYzine pamoate 25 MG CAPSULE PO PRN (00:15)
[2020-10-10] MEDS: Sulfamethoxazole/Trimeth DS 1 EACH TABLET PO SCH ×2 (10:14→20:52)
[2020-10-10] MEDS: Nicotine 21 MG PATCH.TD24 TD SCH (10:15)
[2020-10-10] MEDS: Ciprofloxacin/Dex *EAR* Susp 7.5 ML BOTTLE BOTH EARS SCH ×2 (10:16→20:56)
[2020-10-10] MEDS: Neosporin OINT 15 GM TUBE TP SCH ×2 (10:17→20:56)
[2020-10-10] MEDS: chlorproMAZINE 25 MG TABLET PO PRN ×2 (17:07→22:57)
[2020-10-10] MEDS: *HR* LORazepam 1 MG TABLET PO PRN (17:07)
[2020-10-10] MEDS: QUEtiapine Fumarate 100 MG TABLET PO SCH (20:52)
[2020-10-10] MEDS: Divalproex (24 HR) 500 MG TABLET PO SCH (20:52)
[2020-10-10] MEDS: FluPHENAZine 10 MG TABLET PO SCH (20:52)
[2020-10-11] MEDS: Sulfamethoxazole/Trimeth DS 1 EACH TABLET PO SCH (09:14)
[2020-10-11] MEDS: Nicotine 21 MG PATCH.TD24 TD SCH (09:16)
[2020-10-11] MEDS: Neosporin OINT 15 GM TUBE TP SCH (09:17)
[2020-10-11] MEDS: Ciprofloxacin/Dex *EAR* Susp 7.5 ML BOTTLE BOTH EARS SCH (09:17)
[2020-10-11] MEDS: *HR* LORazepam 1 MG TABLET PO PRN (13:48)
[2020-10-11] MEDS: chlorproMAZINE 25 MG TABLET PO PRN (13:48)
[2020-10-11] MEDS ORDERED: chlorproMAZINE 25 MG TABLET PO STA (17:53)
[2020-10-11] MEDS ORDERED: chlorproMAZINE 25 MG TABLET PO PRN (17:54)
[2020-10-11] MEDS: Divalproex (24 HR) 500 MG TABLET PO SCH (20:50)
[2020-10-11] MEDS: FluPHENAZine 10 MG TABLET PO SCH (20:50)
[2020-10-11] MEDS: hydrOXYzine pamoate 25 MG CAPSULE PO PRN (20:50)
[2020-10-11] MEDS: traZODone 50 MG TABLET PO PRN (20:50)
[2020-10-11] MEDS: Acetaminophen 325 MG TABLET PO PRN (20:51)
[2020-10-11] MEDS: QUEtiapine Fumarate 100 MG TABLET PO SCH (20:51)
[2020-10-12] MEDS: *HR* LORazepam 1 MG TABLET PO PRN ×2 (00:55→18:52)
[2020-10-12] MEDS ORDERED: *HR* LORazepam 1 MG TABLET PO ONE (01:05)
[2020-10-12] MEDS ORDERED: Ziprasidone 20 MG CAPSULE PO ONE (01:08)
[2020-10-12] MEDS ORDERED: Ziprasidone 20 MG, Closed System Device IM Kit 1 EACH in Water for inj. (sterile) 1 ML IM PRN (09:44)
[2020-10-12] MEDS: Nicotine 21 MG PATCH.TD24 TD SCH (10:11)
[2020-10-12] MEDS: Paliperidone Palmitate 156 MG/ML SYRINGE IM SCH (11:47)
[2020-10-12] MEDS: Ziprasidone 20 MG CAPSULE PO PRN (18:52)
[2020-10-12] MEDS: QUEtiapine Fumarate 100 MG TABLET PO SCH (20:25)
[2020-10-12] MEDS: Divalproex (24 HR) 500 MG TABLET PO SCH (20:26)
[2020-10-12] MEDS: FluPHENAZine 10 MG TABLET PO SCH (20:26)
[2020-10-12] MEDS: hydrOXYzine pamoate 25 MG CAPSULE PO PRN (21:18)
[2020-10-12] MEDS: traZODone 50 MG TABLET PO PRN (21:18)
[2020-10-13] MEDS: Nicotine 21 MG PATCH.TD24 TD SCH (08:45)
[2020-10-13] MEDS: Divalproex (24 HR) 500 MG TABLET PO SCH (20:16)
[2020-10-13] MEDS: QUEtiapine Fumarate 100 MG TABLET PO SCH (20:16)
[2020-10-13] MEDS: FluPHENAZine 10 MG TABLET PO SCH (20:17)
[2020-10-13] MEDS: *HR* LORazepam 1 MG TABLET PO PRN (20:56)
[2020-10-13] MEDS: Ziprasidone 20 MG CAPSULE PO PRN (20:56)
[2020-10-14] MEDS: Nicotine 21 MG PATCH.TD24 TD SCH (08:43)
[2020-10-14] MEDS: Ziprasidone 20 MG CAPSULE PO PRN (17:58)
[2020-10-14] MEDS: *HR* LORazepam 1 MG TABLET PO PRN ×2 (17:58→22:50)
[2020-10-14] MEDS: FluPHENAZine 10 MG TABLET PO SCH (20:39)
[2020-10-14] MEDS: Ziprasidone 20 MG CAPSULE PO SCH (20:39)
[2020-10-14] MEDS: Divalproex (24 HR) 500 MG TABLET PO SCH (20:40)
[2020-10-15 09:47] LABS: Basophils # 0.1 K/mcL (0.0-0.2); Basophils % 1.5 %; Eosinophils # 0.7 K/mcL (0.0-0.6); Eosinophils % 8.6 %; Hematocrit 40.3 % (37.5-50.1); Hemoglobin 12.9 g/dL (12.9-16.9); Immature Granulocytes % 1.1 % (0-4); Lymphocytes # 2.4 K/mcL (0.6-4.6); Lymphocytes % 31.3 %; Mean Corpuscular Hemoglobin 29.7 pg (28.0-33.3); Mean Corpuscular Volume 92.9 fL (83.0-100.0); Mean Platelet Volume 9.9 fL (9.4-12.4); Monocytes # 0.9 K/mcL (0.0-1.3); Monocytes % 12.5 %; Neutrophils # 3.4 K/mcL (1.6-8.9); Platelet Count 197 K/mcL (140-400); Red Blood Count 4.34 M/mcL (4.19-5.50); Red Cell Distribution Width 13.6 % (11.5-14.5); White Blood Count 7.6 K/mcL (4.3-11.1)
[2020-10-15 10:09] LABS: Alanine Aminotransferase 7 Units/L (7-52); Albumin 3.8 g/dL (3.5-5.7); Albumin/Globulin Ratio 1.4 (1.1-2.2); Alkaline Phosphatase 59 Units/L (34-104); Aspartate Amino Transferase 9 Units/L (13-39); BUN/Creatinine Ratio 12 (6-26); Bilirubin,Total 0.2 mg/dL (0.3-1.0); Blood Urea Nitrogen 12 mg/dL (6-20); Calcium 8.6 mg/dL (8.6-10.3); Carbon Dioxide 29 mEq/L (23-29); Chloride 104 mEq/L (98-107); Chol/HDL Ratio 4.2 (0-4.9); Cholesterol 146 mg/dL (< 200); Globulin 2.7 g/dL (2.4-3.5); Glucose 90 mg/dL (70-105); HDL Cholesterol 35 mg/dL (40-59); LDL Cholesterol,Calculated 94 mg/dL (< 100); Osmolality,Calculated 285 (280-300); Potassium 4.2 mEq/L (3.5-5.1); Sodium 138 mEq/L (136-145); Total Protein 6.5 g/dL (6.4-8.9); Triglycerides 86 mg/dL (< 150); Valproate 53 mcg/mL (50-100); eGFR For African Americans > 60 (> 60); eGFR For Non-African Americans > 60 (> 60)
[2020-10-15 10:20] LABS: Thyroid Stimulating Hormone 4.632 mcIU/mL (0.340-5.600)
[2020-10-15] MEDS: Nicotine 21 MG PATCH.TD24 TD SCH (10:25)
[2020-10-15 11:54] LABS: Estimated Average Glucose 114 mg/dl; Hemoglobin A1C 5.6 %
[2020-10-15] MEDS: Ziprasidone 20 MG CAPSULE PO PRN ×2 (14:22→23:55)
[2020-10-15] MEDS: *HR* LORazepam 1 MG TABLET PO PRN ×2 (14:24→23:55)
[2020-10-15] MEDS: traZODone 50 MG TABLET PO PRN (21:04)
[2020-10-15] MEDS: Ziprasidone 20 MG CAPSULE PO SCH (21:04)
[2020-10-15] MEDS: Divalproex (24 HR) 500 MG TABLET PO SCH (21:05)
[2020-10-15] MEDS: hydrOXYzine pamoate 25 MG CAPSULE PO PRN (21:05)
[2020-10-15] MEDS: FluPHENAZine 10 MG TABLET PO SCH (21:05)
[2020-10-16] MEDS: Nicotine 21 MG PATCH.TD24 TD SCH (08:54)
[2020-10-16] MEDS: Divalproex (12 HR) 500 MG TABLET PO SCH (08:54)
[2020-10-16] MEDS: traZODone 50 MG TABLET PO PRN (20:06)
[2020-10-16] MEDS: Ziprasidone 20 MG CAPSULE PO SCH (20:06)
[2020-10-16] MEDS: FluPHENAZine 10 MG TABLET PO SCH (20:07)
[2020-10-16] MEDS: Divalproex (24 HR) 500 MG TABLET PO SCH (20:07)
[2020-10-16] MEDS: hydrOXYzine pamoate 25 MG CAPSULE PO PRN (20:07)
[2020-10-17] MEDS: Divalproex (12 HR) 500 MG TABLET PO SCH (09:08)
[2020-10-17] MEDS: Nicotine 21 MG PATCH.TD24 TD SCH (09:09)
[2020-10-17] MEDS: Divalproex (24 HR) 500 MG TABLET PO SCH (20:18)
[2020-10-17] MEDS: FluPHENAZine 10 MG TABLET PO SCH (20:18)
[2020-10-17] MEDS: Ziprasidone 20 MG CAPSULE PO SCH (20:18)
[2020-10-17] MEDS: hydrOXYzine pamoate 25 MG CAPSULE PO PRN (20:18)
[2020-10-17] MEDS: traZODone 50 MG TABLET PO PRN (20:18)
[2020-10-18] MEDS ORDERED: traZODone 50 MG TABLET PO ONE (00:11)
[2020-10-18] MEDS: Divalproex (12 HR) 500 MG TABLET PO SCH (09:36)
[2020-10-18] MEDS: Nicotine 21 MG PATCH.TD24 TD SCH (13:35)
[2020-10-18] MEDS: Ziprasidone 20 MG CAPSULE PO SCH (20:31)
[2020-10-18] MEDS: traZODone 50 MG TABLET PO PRN (20:31)
[2020-10-18] MEDS: FluPHENAZine 10 MG TABLET PO SCH (20:32)
[2020-10-18] MEDS: Divalproex (24 HR) 500 MG TABLET PO SCH (20:32)
[2020-10-19] MEDS: Nicotine 21 MG PATCH.TD24 TD SCH (09:59)
[2020-10-19] MEDS: Divalproex (12 HR) 500 MG TABLET PO SCH (10:00)
[2020-10-19] MEDS: Divalproex (24 HR) 500 MG TABLET PO SCH (20:15)
[2020-10-19] MEDS: FluPHENAZine 10 MG TABLET PO SCH (20:15)
[2020-10-19] MEDS: traZODone 50 MG TABLET PO PRN (20:16)
[2020-10-19] MEDS: hydrOXYzine pamoate 25 MG CAPSULE PO PRN (20:16)
[2020-10-19] MEDS: Ziprasidone 20 MG CAPSULE PO SCH (20:16)
[2020-10-20] MEDS ORDERED: Neosporin OINT 15 GM TUBE TP PRN (08:30)
[2020-10-20] MEDS: Divalproex (12 HR) 500 MG TABLET PO SCH (09:22)
[2020-10-20] MEDS: Nicotine 21 MG PATCH.TD24 TD SCH (09:24)
[2020-10-20] MEDS: FluPHENAZine 10 MG TABLET PO SCH (20:57)
[2020-10-20] MEDS: Divalproex (24 HR) 500 MG TABLET PO SCH (20:57)
[2020-10-20] MEDS: hydrOXYzine pamoate 25 MG CAPSULE PO PRN (20:57)
[2020-10-20] MEDS: Ziprasidone 20 MG CAPSULE PO SCH (20:57)
[2020-10-20] MEDS: traZODone 50 MG TABLET PO PRN (22:03)
[2020-10-21] MEDS: Nicotine 21 MG PATCH.TD24 TD SCH (09:24)
[2020-10-21] MEDS: Divalproex (12 HR) 500 MG TABLET PO SCH (09:26)
[2020-10-21] MEDS: Divalproex (24 HR) 500 MG TABLET PO SCH (20:28)
[2020-10-21] MEDS: traZODone 50 MG TABLET PO PRN (20:28)
[2020-10-21] MEDS: hydrOXYzine pamoate 25 MG CAPSULE PO PRN (20:28)
[2020-10-21] MEDS: FluPHENAZine 10 MG TABLET PO SCH (20:29)
[2020-10-21] MEDS: Acetaminophen 325 MG TABLET PO PRN (20:29)
[2020-10-21] MEDS: Ziprasidone 20 MG CAPSULE PO SCH (20:29)
[2020-10-22] MEDS: Nicotine 21 MG PATCH.TD24 TD SCH (08:21)
[2020-10-22] MEDS: Divalproex (12 HR) 500 MG TABLET PO SCH (08:23)
[2020-10-22] MEDS: FluPHENAZine 10 MG TABLET PO SCH (20:28)
[2020-10-22] MEDS: traZODone 50 MG TABLET PO PRN (20:29)
[2020-10-22] MEDS: Acetaminophen 325 MG TABLET PO PRN (20:29)
[2020-10-22] MEDS: Divalproex (24 HR) 500 MG TABLET PO SCH (20:29)
[2020-10-22] MEDS: Ziprasidone 20 MG CAPSULE PO SCH (20:29)
[2020-10-23] MEDS: Divalproex (12 HR) 500 MG TABLET PO SCH (08:56)
[2020-10-23] MEDS: Nicotine 21 MG PATCH.TD24 TD SCH (08:57)
[2020-10-23] MEDS: Ziprasidone 20 MG CAPSULE PO SCH (20:57)
[2020-10-23] MEDS: Divalproex (24 HR) 500 MG TABLET PO SCH (20:58)
[2020-10-23] MEDS: FluPHENAZine 10 MG TABLET PO SCH (21:00)
[2020-10-23] MEDS: traZODone 50 MG TABLET PO PRN (21:01)
[2020-10-24] MEDS: Divalproex (12 HR) 500 MG TABLET PO SCH (09:22)
[2020-10-24] MEDS: Nicotine 21 MG PATCH.TD24 TD SCH (09:22)
[2020-10-24] MEDS: FluPHENAZine 10 MG TABLET PO SCH (21:11)
[2020-10-24] MEDS: traZODone 50 MG TABLET PO PRN (21:12)
[2020-10-24] MEDS: Divalproex (24 HR) 500 MG TABLET PO SCH (21:12)
[2020-10-24] MEDS: Ziprasidone 20 MG CAPSULE PO SCH (21:12)
[2020-10-25] MEDS: hydrOXYzine pamoate 25 MG CAPSULE PO PRN (00:14)
[2020-10-25] MEDS: Ziprasidone 20 MG CAPSULE PO PRN (00:14)
[2020-10-25] MEDS: Divalproex (12 HR) 500 MG TABLET PO SCH (08:35)
[2020-10-25] MEDS: Nicotine 21 MG PATCH.TD24 TD SCH (08:37)
[2020-10-25] MEDS: traZODone 50 MG TABLET PO PRN (21:39)
[2020-10-25] MEDS: Divalproex (24 HR) 500 MG TABLET PO SCH (21:39)
[2020-10-25] MEDS: FluPHENAZine 10 MG TABLET PO SCH (21:39)
[2020-10-25] MEDS: Ziprasidone 20 MG CAPSULE PO SCH (21:39)
[2020-10-26] MEDS: Divalproex (12 HR) 500 MG TABLET PO SCH (11:01)
[2020-10-26] MEDS: Nicotine 21 MG PATCH.TD24 TD SCH (11:01)
[2020-10-26] MEDS: Paliperidone Palmitate 156 MG/ML SYRINGE IM SCH (11:55)
[2020-10-26] MEDS: Ziprasidone 20 MG CAPSULE PO SCH (21:14)
[2020-10-26] MEDS: traZODone 50 MG TABLET PO PRN (21:14)
[2020-10-26] MEDS: FluPHENAZine 10 MG TABLET PO SCH (21:14)
[2020-10-26] MEDS: Divalproex (24 HR) 500 MG TABLET PO SCH (21:14)
[2020-10-27] MEDS: Nicotine 21 MG PATCH.TD24 TD SCH (08:30)
[2020-10-27] MEDS: Divalproex (12 HR) 500 MG TABLET PO SCH (08:32)
[2020-10-27 11:37] VITALS: BP 100/69; PULSE 79; TEMP 96.3; O2SAT 98
[2020-10-27] MEDS: Ziprasidone 20 MG CAPSULE PO PRN (15:51)
== END 2020-10-27 16:20 | disposition short-term general hospital (02) | DRG 750 ==
LOC: 1ANU 17:18
PROVIDERS: ADMIT Psychiatry & Neurology Psychiatry; ATTEND Psychiatry & Neurology Psychiatry

== ENCOUNTER 2021-05-13 04:48 | Inpatient (IN) ==
[2021-05-13] MEDS ORDERED: cephALEXin 500 MG CAPSULE PO ONE (05:19)
[2021-05-13] MEDS ORDERED: Tdap (Boostrix) Vaccine 0.5 ML SYRINGE IM ONE (05:19)
[2021-05-13 05:35] LABS: Basophils # 0.1 K/mcL (0.0-0.2); Basophils % 0.8 %; Eosinophils # 0.2 K/mcL (0.0-0.6); Eosinophils % 1.9 %; Hematocrit 44.5 % (37.5-50.1); Hemoglobin 14.6 g/dL (12.9-16.9); Immature Granulocytes % 0.4 % (0-4); Lymphocytes # 2.2 K/mcL (0.6-4.6); Lymphocytes % 24.6 %; Mean Corpuscular HGB Conc 32.8 g/dL (31.6-35.5); Mean Corpuscular Hemoglobin 29.5 pg (28.0-33.3); Mean Corpuscular Volume 89.9 fL (83.0-100.0); Mean Platelet Volume 10.2 fL (9.4-12.4); Monocytes # 0.8 K/mcL (0.0-1.3); Monocytes % 8.7 %; Neutrophils # 5.7 K/mcL (1.6-8.9); Platelet Count 266 K/mcL (140-400); Red Blood Count 4.95 M/mcL (4.19-5.50); Red Cell Distribution Width 13.1 % (11.5-14.5); Segmented Neutrophils % 63.6 %
[2021-05-13 05:55] LABS: Acetaminophen < 10 mcg/mL (10-20); BUN/Creatinine Ratio 8 (6-26); Blood Urea Nitrogen 7 mg/dL (6-20); Calcium 9.4 mg/dL (8.6-10.3); Carbon Dioxide 27 mEq/L (23-29); Chloride 103 mEq/L (98-107); Ethanol < 10 mg/dL (Less than 10); Glucose 109 mg/dL (70-105); Osmolality,Calculated 283 (280-300); Potassium 3.7 mEq/L (3.5-5.1); Salicylate < 2.5 mg/dL (15.0-30.0); Sodium 137 mEq/L (136-145); eGFR For African Americans > 60 (> 60); eGFR For Non-African Americans > 60 (> 60)
[2021-05-13 06:11] LABS: Influenza A PCR Negative (Negative); Influenza B PCR Negative (Negative); Resp. Syncytial Virus PCR Negative (Negative)
[2021-05-13 06:17] LABS: SARS-CoV-2 by PCR (In House) Negative (Negative)
[2021-05-13 07:35] LABS: Bilirubin,Urine Negative (Negative); Blood,Urine Negative (Negative); Clarity,Urine Clear (Clear); Color,Urine Colorless (Yellow); Glucose,Urine (UA) Normal (Normal); Ketones,Urine Negative (Negative); Leukocyte Esterase,Urine Negative (Negative); Nitrite,Urine Negative (Negative); PH,Urine 6.5 pH Units (5.0-8.0); Protein,Urine Negative (Neg-Trace); Specific Gravity,Urine 1.008 (1.010-1.025); Urobilinogen,Urine Normal (Normal)
[2021-05-13 08:04] LABS: Amphetamine Screen,Urine Negative ng/mL (Cutoff=1000); Barbiturate Screen,Urine Negative ng/mL (Cutoff=200)
[2021-05-13 08:05] LABS: Benzodiazepines Screen,Urine Negative ng/mL (Cutoff=300); Cannabinoid Screen,Urine Negative ng/mL (Cutoff = 50); Cocaine Screen,Urine Negative ng/mL (Cutoff= 300); Opiate Screen,Urine Negative ng/mL (Cutoff=300); Phencyclidine Screen,Urine Negative ng/mL (Cutoff=25)
[2021-05-13] MEDS ORDERED: Ziprasidone 20 MG, Closed System Device IM Kit 1 EACH in Water for inj. (sterile) 1 ML IM ONE ×2 (10:05)
[2021-05-13] MEDS ORDERED: Water for inj. (sterile) 10 ML ONE ×2 (10:10→17:41)
[2021-05-13] MEDS ORDERED: Ziprasidone 20 MG/VIAL VIAL IM ONE ×2 (10:10→17:41)
[2021-05-13] MEDS: Ziprasidone 20 MG, Closed System Device IM Kit 1 EACH in Water for inj. (sterile) 1 ML IM ONE ×2 (17:50→17:51)
[2021-05-14] MEDS: Ibuprofen 600 MG TABLET PO ONE (06:35)
[2021-05-14] MEDS: Ibuprofen 600 MG TABLET PO PRN ×3 (11:38→23:05)
[2021-05-14] MEDS: Nicotine 21 MG PATCH.TD24 TD ONE (11:38)
[2021-05-14] MEDS: risperiDONE 1 MG TABLET PO SCH (16:20)
[2021-05-14] MEDS: ARIPiprazole 10 MG TABLET PO SCH (16:20)
[2021-05-15] MEDS: Ibuprofen 600 MG TABLET PO PRN (09:57)
[2021-05-15] MEDS: risperiDONE 1 MG TABLET PO SCH (14:17)
[2021-05-15] MEDS: ARIPiprazole 10 MG TABLET PO SCH (14:17)
[2021-05-15] MEDS ORDERED: Nicotine 21 MG PATCH.TD24 TD ONE (17:38)
[2021-05-15] MEDS: Nicotine 21 MG PATCH.TD24 TD ONE (17:50)
[2021-05-16] MEDS: risperiDONE 1 MG TABLET PO SCH (10:08)
[2021-05-16] MEDS: ARIPiprazole 10 MG TABLET PO SCH (10:08)
[2021-05-16] MEDS: Ibuprofen 600 MG TABLET PO ONE (14:55)
[2021-05-16] MEDS: Nicotine 21 MG PATCH.TD24 TD SCH (17:09)
[2021-05-16] MEDS: Ibuprofen 600 MG TABLET PO PRN (21:20)
[2021-05-17] MEDS: ARIPiprazole 10 MG TABLET PO SCH ×2 (08:57→21:13)
[2021-05-17] MEDS: risperiDONE 1 MG TABLET PO SCH ×2 (08:57→21:14)
[2021-05-17] MEDS: Nicotine 21 MG PATCH.TD24 TD SCH (08:57)
[2021-05-17] MEDS ORDERED: *HR* LORazepam 2 MG/ML VIAL IM PRN (13:15)
[2021-05-17] MEDS ORDERED: Mag Hydrox/Al Hydrox/Simeth 30 ML UDC PO PRN (13:15)
[2021-05-17] MEDS ORDERED: MOM Conc 10 ML UD.LIQ PO PRN (13:15)
[2021-05-17] MEDS ORDERED: *HR* LORazepam 1 MG TABLET PO PRN (13:15)
[2021-05-17] MEDS ORDERED: chlorproMAZINE 25 MG TABLET PO PRN (13:25)
[2021-05-17] MEDS ORDERED: ChlorproMAZINE 25 MG/ML AMPUL IM PRN (13:26)
[2021-05-17] MEDS ORDERED: traZODone 50 MG TABLET PO PRN (18:17)
[2021-05-17] MEDS: hydrOXYzine pamoate 25 MG CAPSULE PO PRN (21:14)
[2021-05-17] MEDS: Neosporin OINT 15 GM TUBE TP PRN (21:46)
[2021-05-18] MEDS: ARIPiprazole 10 MG TABLET PO SCH ×2 (08:21→20:11)
[2021-05-18] MEDS: Nicotine 21 MG PATCH.TD24 TD SCH (08:22)
[2021-05-18] MEDS: hydrOXYzine pamoate 25 MG CAPSULE PO PRN (20:10)
[2021-05-18] MEDS: risperiDONE 1 MG TABLET PO SCH (20:11)
[2021-05-18] MEDS: QUEtiapine Fumarate 25 MG TABLET PO PRN (20:11)
[2021-05-18] MEDS: Neosporin OINT 15 GM TUBE TP PRN (20:14)
[2021-05-19] MEDS: Nicotine 21 MG PATCH.TD24 TD SCH (09:41)
[2021-05-19] MEDS: ARIPiprazole 10 MG TABLET PO SCH ×2 (09:42→20:05)
[2021-05-19] MEDS: Neosporin OINT 15 GM TUBE TP PRN ×2 (10:09→20:05)
[2021-05-19] MEDS: Ibuprofen 600 MG TABLET PO PRN (14:26)
[2021-05-19] MEDS: hydrOXYzine pamoate 25 MG CAPSULE PO PRN (14:27)
[2021-05-19] MEDS: QUEtiapine Fumarate 25 MG TABLET PO PRN (20:05)
[2021-05-19] MEDS: risperiDONE 1 MG TABLET PO SCH (20:05)
[2021-05-20] MEDS: Ibuprofen 600 MG TABLET PO PRN (09:23)
[2021-05-20] MEDS: ARIPiprazole 10 MG TABLET PO SCH (09:24)
[2021-05-20] MEDS: Nicotine 21 MG PATCH.TD24 TD SCH (09:24)
[2021-05-20 09:55] VITALS: BP 117/73; PULSE 107; TEMP 97.6; O2SAT 97
[2021-05-20] MEDS: hydrOXYzine pamoate 25 MG CAPSULE PO PRN (14:00)
== END 2021-05-20 15:00 | DRG 750 ==
LOC: EMEROOARM 04:48 → 1ANU 05-17 12:31
PROVIDERS: ADMIT Psychiatry & Neurology Psychiatry; ATTEND Psychiatry & Neurology Psychiatry